=== PATIENT | male | born 1980 | race African-American/Black ===

== ENCOUNTER 2017-02-14 05:15 | Emergency (ER) | payer SELFPAY ==
[~2017-02-14] VITALS: Ht 172.7 cm; Wt 81.6 kg
[2017-02-14 05:23] VITALS: BP 135/69
--- NOTE | 2017-02-14 05:23 | PHYS DOC ---
Past Medical History Past Medical History: No Pertinent History Past Surgical History: No Surgical History Alcohol Use: None Drug Use: None Adult General Chief Complaint Chief Complaint: FACE PAIN HPI HPI Patient is a 36 year old male who presents with years of left jaw tightness, constant with intermittent fluctuations of intensity. He notes symptoms worse tonight without inciting event. He denies jaw pain, dental pain, trauma, sore throat, difficulty opening mouth or breathing or eating. Denies face swelling or ear pain. Denies headache. Review of Systems Review of Systems Constitutional: Denies fever or chills [] Eyes: Denies change in visual acuity, redness, or eye pain [] HENT: Denies nasal congestion or sore throat [] Respiratory: Denies cough or shortness of breath [] Cardiovascular: No additional information not addressed in HPI [] GI: Denies abdominal pain, nausea, vomiting, bloody stools or diarrhea [] : Denies dysuria or hematuria [] Musculoskeletal: Denies back pain or joint pain [] Integument: Denies rash or skin lesions [] Neurologic: Denies headache, focal weakness or sensory changes [] Endocrine: Denies polyuria or polydipsia [] Physical Exam Physical Exam Constitutional: Well developed, well nourished, no acute distress, non-toxic appearance. [] HENT: Normocephalic, atraumatic, bilateral external ears normal, oropharynx moist, no oral exudates, nose normal. No trismus [] Eyes: PERRLA, EOMI, conjunctiva normal, no discharge. [] Neck: Normal range of motion, supple, no stridor. [] Cardiovascular:Heart rate regular rhythm [] Lungs & Thorax: Bilateral breath sounds clear to auscultation [] Abdomen: Bowel sounds normal, soft, no tenderness. [] Skin: Warm, dry, no erythema, no rash. [] Back: Normal ROM. [] Extremities: No tenderness, ROM intact. [] Neurologic: Alert and oriented X 3, normal motor function, normal sensory function, no focal deficits noted. [] Psychologic: Affect normal, judgement normal, mood normal. [] Course & Med Decision Making Course & Med Decision Making Pertinent Labs and Imaging studies reviewed. (See chart for details) Discussed symptomatic care for possible TMJ. Encouraged outpatient follow up. Return precautions given. He understands and agrees with plan. Dragon Disclaimer Dragon Disclaimer This electronic medical record was generated, in whole or in part, using a voice recognition dictation system. Departure Departure Impression: Primary Impression: Chronic jaw pain Disposition: 01 HOME, SELF-CARE Condition: STABLE Patient Instructions: Jaw, Range of Motion Exercises, [id number] Additional Instructions: Take naproxen as needed for jaw pain. Follow-up with your primary care doctor and your dentist. Return for any concerns. Scripts Naproxen 375 Mg Tablet1 Tab PO BID PRN PAIN #30 TAB Prov:Pauline STAPLES MD 02/14/17 Pauline STAPLES MD Feb 14, 2017 05:23
[2017-02-14] MEDS ORDERED: NAPR375T3 PO (05:27)
== END 2017-02-14 05:39 | disposition home or self-care (01) ==
LOC: ER 05:15
DX: G89.29 Other chronic pain (principal); R68.84 Jaw pain
CPT/HCPCS: 99283

== ENCOUNTER 2017-07-14 18:43 | Emergency (ER) | payer OTHER ==
[~2017-07-14] VITALS: Ht 172.7 cm; Wt 77.1 kg
[~2017-07-14 18:43] MED LIST: NAPR-695 PO
[2017-07-14 18:50] VITALS: BP 124/65
[2017-07-14] MEDS ORDERED: NAPROXEN 500 MG TABLET PO STA (19:11)
[2017-07-14] MEDS ORDERED: NAPR500T8 PO (19:17)
[2017-07-14] MEDS ORDERED: CYCL10TA2 PO (19:17)
--- NOTE | 2017-07-14 19:17 | PHYS DOC ---
Past Medical History Past Medical History: No Pertinent History Past Surgical History: No Surgical History Alcohol Use: None Drug Use: None Adult General Chief Complaint Chief Complaint: DENTAL PROBLEM HPI HPI Patient is a 37 year old male who presents with left chronic jaw pain. Patient denies any trauma. Denies any trismus. He states he has a clicking sound in the jaw that is chronic as well. Review of Systems Review of Systems Constitutional: Denies fever or chills [] Eyes: Denies change in visual acuity, redness, or eye pain [] HENT: left chronic jaw pain Musculoskeletal: Denies back pain or joint pain [] Integument: Denies rash or skin lesions [] Neurologic: Denies headache, focal weakness or sensory changes [] Allergies Allergies Allergies Coded Allergies Type Severity Reaction Last Updated Verified No Known Drug Allergies 02/14/17 No Physical Exam Physical Exam Constitutional: Well developed, well nourished, no acute distress, non-toxic appearance. [] HENT: Normocephalic, atraumatic, bilateral external ears normal, oropharynx moist, no oral exudates, nose normal. [] full range of motion to the jaw on exam, crepitus noted on ROM. Skin: Warm, dry, no erythema, no rash. [] Back: No tenderness, no CVA tenderness. [] Extremities: No tenderness, no cyanosis, no clubbing, ROM intact, no edema. [] Neurologic: Alert and oriented X 3, normal motor function, normal sensory function, no focal deficits noted. [] Psychologic: Affect normal, judgement normal, mood normal. [] Current Patient Data Vital Signs Vital Signs Date Time Temp Pulse Resp B/P (MAP) Pulse Ox O2 Delivery O2 Flow Rate FiO2 07/14/17 18:50 98.5 68 16 98 Room Air 98.5 EKG EKG [] Radiology/Procedures Radiology/Procedures [] Course & Med Decision Making Course & Med Decision Making Pertinent Labs and Imaging studies reviewed. (See chart for details) Patient is in the ED with chronic left jaw pain. Discharged with naproxen and Flexeril. Follow-up with PCP in 1-2 weeks. Dragon Disclaimer Dragon Disclaimer This electronic medical record was generated, in whole or in part, using a voice recognition dictation system. Departure Departure Impression: Primary Impression: Chronic jaw pain Additional Impression: TMJ (temporomandibular joint syndrome) Disposition: HOME, SELF-CARE Condition: STABLE Referrals: NO PCP (PCP) follow up with your doctor in one week Patient Instructions: Temporomandibular Joint Pain-Brief Additional Instructions: You were seen for chronic left jaw pain. Follow-up with your primary care doctor or a doctor from the list provided in the next [address] operate machinery on the cyclobenzaprine. Scripts Cyclobenzaprine Hcl (CYCLOBENZAPRINE HCL) 10 Mg Tablet 1 TAB PO TID, #30 TAB Prov: YOGESH DIAZ APRN 07/14/17 Naproxen (NAPROXEN) 500 Mg Tablet. 1 TAB PO BID, #60 TAB 1 Refill Prov: YOGESH DIAZ APRN 07/14/17 Problem Qualifiers YOGESH DIAZ APRN Jul 14, 2017 19:17
== END 2017-07-14 19:42 | disposition home or self-care (01) ==
LOC: ER 18:43
DX: M26.602 Left temporomandibular joint disorder, unspecified (principal); G89.29 Other chronic pain
CPT/HCPCS: 99283

== ENCOUNTER 2017-09-12 08:08 | Emergency (ER) | payer OTHER ==
[~2017-09-12] VITALS: Ht 170.2 cm; Wt 81.6 kg
[2017-09-12 08:08] VITALS: BP 121/77
[~2017-09-12 08:08] MED LIST changes: +CYCL10TA2 PO; +NAPR500T8 PO
[2017-09-12] MEDS ORDERED: DIPHTH,PERTUSS(ACELL),TET TOX 0.5 ML DISP.SYRIN. VAX IM ONE (08:45)
--- NOTE | 2017-09-12 08:48 | RAD ---
Examination: 2 views of the right hand History: History of laceration to the posterior thumb Comparison: None available Findings: The alignment of the metacarpophalangeal joints, interphalangeal joints grossly unremarkable. Probable soft tissue injury identified in the base of the thumb region. Impression: 1. No acute osseous findings. 2. Probable soft tissue injury at the base of the thumb.
--- NOTE | 2017-09-12 09:54 | ED.ADGEN ---
Past Medical History Past Medical History: Schizophrenia Past Surgical History: No Surgical History Alcohol Use: None Drug Use: None Adult General Chief Complaint Chief Complaint: LACERATION/AVULSION HPI HPI Patient is a 37 year old man, history of schizophrenia, developmental delay, who presents to the emergency department due to complaint of pain in his right hand after sustaining a laceration last night. Patient states that he "stuck my hand into my pocket and cut it on a razor blade in my pocket". Patient states that he had a small razor that he does used to shape his sideburns, he states that he forgot it was in his pocket, and he sustained a small laceration which have some bleeding. He states that he was unable to come in earlier, so he came in this morning. He states this occurred before midnight last night. He denies any other injuries or complaints. Patient is uncertain when he last received a tetanus booster. Review of Systems Review of Systems Constitutional: Denies fever or chills. [] Eyes: Denies change in visual acuity. [] HENT: Denies nasal congestion or sore throat. [] Respiratory: Denies cough or shortness of breath. [] Cardiovascular: Denies chest pain or edema. [] GI: Denies abdominal pain, nausea, vomiting, bloody stools or diarrhea. [] : Denies dysuria. [] Musculoskeletal: Denies back pain or joint pain. [] Integument: Denies rash. [] Neurologic: Denies headache, focal weakness or sensory changes. [] Endocrine: Denies polyuria or polydipsia. [] Lymphatic: Denies swollen glands. [] Psychiatric: Denies depression or anxiety. [] Current Medications Current Medications Current Medications Medications (Trade) Dose Ordered Sig/Hayde Start Time Stop Time Status Last Admin Dose Admin Diphtheria/ Tetanus/Acell Pertussis (Boostrix) 0.5 ml ONCE ONCE 09/12/17 08:45 09/12/17 08:46 DC 09/12/17 08:46 0.5 ML Allergies Allergies Allergies Coded Allergies Type Severity Reaction Last Updated Verified No Known Drug Allergies 02/14/17 No Physical Exam Physical Exam Constitutional: Well developed, well nourished, no acute distress, non-toxic appearance. [] HENT: Normocephalic, atraumatic, bilateral external ears normal, oropharynx moist, no oral exudates, nose normal. [] Eyes: PERRLA, EOMI, conjunctiva normal, no discharge. [] Neck: Normal range of motion, no tenderness, supple, no stridor. [] Cardiovascular:Heart rate regular rhythm, no murmur , S1, S2, rubs or gallops.[] Lungs & Thorax: Bilateral breath sounds clear to auscultation, no wheezing, rhonchi, rales. No chest wall crepitus or tenderness. [] Skin: Warm, dry, no erythema, no rash. [] Extremities: Patient with a linear superficial laceration noted perpendicular to the base of the thumb over the right thenar eminence, one and half centimeters in length, involves only the skin, with no gaping or deeper involvement. No evidence of foreign body. Mild soft tissue swelling noted in the area, but no evidence of infection or induration, patient is actively squeezing and picking at the area during my examination. No active bleeding. Dried blood is noted around the area. The no cyanosis, no clubbing, ROM intact, no edema. [] Neurologic: Alert and oriented X 3, normal motor function, normal sensory function, no focal deficits noted. [] Psychologic: Strange affect, judgement normal, mood normal. [] Current Patient Data Vital Signs Vital Signs Date Time Temp Pulse Resp B/P (MAP) Pulse Ox O2 Delivery O2 Flow Rate FiO2 09/12/17 08:08 98.2 82 18 100 Room Air 98.2 EKG EKG Not indicated.[] Radiology/Procedures Radiology/Procedures [][facility] [address] [place] [address] IMAGING REPORT Signed PATIENT: RUBIN HADLEY ACCOUNT: [id number] : 1980 LOCATION: ER AGE: 37 SEX: M EXAM STATUS: REG ER ORD. PHYSICIAN: NONA HORVATH DO REASON: Laceration PROCEDURE: HAND RIGHT 2V Examination: 2 views of the right hand History: History of laceration to the posterior thumb Comparison: None available Findings: The alignment of the metacarpophalangeal joints, interphalangeal joints grossly unremarkable. Probable soft tissue injury identified in the base of the thumb region. Impression: 1. No acute osseous findings. 2. Probable soft tissue injury at the base of the thumb. DICTATED and SIGNED BY: MAURI EUCEDA MD DATE: 09/12/17840 CC: NONA HORVATH DO; NO PCP ~ Course & Med Decision Making Course & Med Decision Making Pertinent Labs and Imaging studies reviewed. (See chart for details) Patient was rather strange affect, consistent with his baseline report, although he is cooperative with questioning. Patient is constantly moving and picking at the wound area even during the examination when I am repeatedly telling him to not pick at it due to concerns for inducing possible infection. X -ray was obtained to rule out any occult underlying injury, although there is no evidence of infection or other concerning findings on examination this time, as stated is a superficial laceration involving only the upper dermis, with no evidence of deeper and involvement. X-ray was unremarkable aside from superficial laceration as stated being noted. I did discuss with patient risk versus benefit of delayed closure, because of the patient's continued squeezing and picking at the wound, I believe that delayed closure with glue would be beneficial for the patient to prevent development of infection at this time. Patient is agreeable this plan. Area was copiously cleaned in the emergency department, and a layer of skin glue was applied with good effect. Patient was instructed to keep the wound covered for the first 24 hours, and avoid immersion for 48 hours, he was also given very clear and detailed instructions primary and return if any signs of infection do develop. His tetanus booster was updated in the ED. As stated, there is no evidence of infection at this time , no indication for antibiotics or other interventions at this time, patient was discharged home in stable condition with plan and precautions as above. Dragon Disclaimer Dragon Disclaimer This electronic medical record was generated, in whole or in part, using a voice recognition dictation system. Departure Impression: Primary Impression: Hand laceration Disposition: HOME, SELF-CARE Condition: IMPROVED NONA HORVATH DO Sep 12, 2017 09:54
== END 2017-09-12 09:22 | disposition home or self-care (01) ==
LOC: ER 08:08
DX: S61.411A Laceration without foreign body of right hand, initial encounter (principal); F20.9 Schizophrenia, unspecified; Y28.8XXA Contact with other sharp object, undetermined intent, initial encounter; Y93.89 Activity, other specified; Y99.8 Other external cause status; Y92.89 Other specified places as the place of occurrence of the external cause
CPT/HCPCS: 73120; 90471; 90715; 99284-25

== ENCOUNTER 2018-01-31 21:35 | Emergency (ER) | payer OTHER ==
[2018-01-31] MEDS: LIDO:MAALOX:DONNATAL 1:1:1 15 ML SINGLE DOSE SWSW (22:30)
== END 2018-01-31 23:33 | disposition home or self-care (01) ==
LOC: ER 21:35
DX: K21.9 Gastro-esophageal reflux disease without esophagitis (principal); F20.0 Paranoid schizophrenia
CPT/HCPCS: 99282

== ENCOUNTER 2018-04-06 16:47 | Emergency (ER) | payer OTHER | END 2018-04-06 17:41 | disposition home or self-care (01) | LOC: ER 16:47 | DX: K64.9 Unspecified hemorrhoids (principal); F20.9 Schizophrenia, unspecified | CPT/HCPCS: 99283 ==

== ENCOUNTER 2018-05-21 12:33 | Emergency (ER) | payer OTHER ==
[2018-05-21] MEDS: IBUPROFEN 800 MG TABLET. PO (13:28)
== END 2018-05-21 13:48 | disposition home or self-care (01) ==
LOC: ER 12:33
DX: G89.29 Other chronic pain (principal); R68.84 Jaw pain; F20.9 Schizophrenia, unspecified
CPT/HCPCS: 99282; 99283

== ENCOUNTER 2018-07-01 02:00 | Emergency (ER) | payer OTHER ==
[~2018-07-01] VITALS: Ht 175.3 cm; Wt 77.1 kg
[2018-07-01 02:00] VITALS: BP 152/77
[~2018-07-01 02:00] MED LIST changes: +HYDR28.311 RC; +RANI150T21 PO
[2018-07-01] MEDS: LIDO:MAALOX 1:1 20 ML SINGLE DOSE. SWSW ONE (02:24)
[2018-07-01] MEDS: LORazepam 1 MG TABLET PO ONE (02:25)
[2018-07-01 02:41] LABS: BASO % 0 % (0-3); EOS # 0.1 x10^3/uL (0.0-0.7); EOS % 1 % (0-3); HEMATOCRIT 41.6 % (39.0-53.0); HEMOGLOBIN 14.5 g/dL (13.0-17.5); LYMPH % 28 % (24-48); MEAN CORPUSCULAR HEMOGLOBIN 32 pg (25-35); MEAN CORPUSCULAR HGB CONC 35 g/dL (31-37); MEAN CORPUSCULAR VOLUME 91 fL (79-100); MONO # 0.8 x10^3/uL (0.0-1.1); MONO % 11 % (0-9); NEUT # 4.5 x10^3uL (1.8-7.7); NEUT % 60 % (31-73); PLATELET COUNT 214 x10^3/uL (140-400); RED BLOOD COUNT 4.59 x10^6/uL (4.30-5.70); RED CELL DISTRIBUTION WIDTH 12.8 % (11.5-14.5); WHITE BLOOD COUNT 7.4 x10^3/uL (4.0-11.0)
[2018-07-01 03:00] LABS: CREATININE 1.1 mg/dL (0.7-1.3); GFR 91.6; POTASSIUM 3.7 mmol/L (3.5-5.1)
[2018-07-01 03:05] LABS: ALBUMIN 3.8 g/dL (3.4-5.0); ALBUMIN/GLOBULIN RATIO 1.3 (1.0-1.7); TOTAL BILIRUBIN 0.3 mg/dL (0.2-1.0); TOTAL PROTEIN 6.7 g/dL (6.4-8.2)
--- NOTE | 2018-07-01 03:22 | PHYS DOC ---
Past Medical History Past Medical History: Schizophrenia Past Surgical History: Other Additional Past Surgical Histo: EGD W/REMOVAL OF FOREIGN BODY Alcohol Use: None Drug Use: None Adult General Chief Complaint Chief Complaint: ABDOMINAL PAIN [facility] HPI Patient is a 38 year old male brought in by ambulance with a chief complaint of he thinks there are worms crawling inside his abdomen he is noticed this for the last 15 years. He said that sometimes they get worse to the point where he feels anxious and he actually tries to take his Abilify for schizophrenia to help but sometimes it just gets a little out of hand. Today he would like something for his anxiety and for the symptoms. Something to calm his abdomen down he tells me. He denies suicidality he denies homicidality he says that there are no command hallucinations. He just wants something to help calm his stomach down and to "kill the worms" Review of Systems Review of Systems Constitutional: Denies fever or chills [] Eyes: Denies change in visual acuity, redness, or eye pain [] HENT: Denies nasal congestion or sore throat [] Respiratory: Denies cough or shortness of breath [] Cardiovascular: No additional information not addressed in HPI [] All other systems were reviewed and found to be within normal limits, except as documented in this note. Current Medications Current Medications Current Medications Medications (Trade) Dose Ordered Sig/Hayde Start Time Stop Time Status Last Admin Dose Admin Lorazepam (Ativan) 2 mg 1X ONCE 07/01/18 02:30 07/01/18 02:31 DC 07/01/18 02:25 2 MG Multi-Ingredient Mouthwash/Gargle (Gi Cocktail) 20 ml 1X ONCE 07/01/18 02:30 07/01/18 02:31 DC 07/01/18 02:24 20 ML Olanzapine (ZyPREXA ZYDIS) 10 mg 1X ONCE 07/01/18 02:30 07/01/18 02:31 DC 07/01/18 02:25 10 MG Allergies Allergies Allergies Coded Allergies Type Severity Reaction Last Updated Verified No Known Drug Allergies 02/14/17 No Physical Exam Physical Exam Constitutional: Well developed, well nourished, no acute distress, non-toxic appearance. [] HENT: Normocephalic, atraumatic, bilateral external ears normal, oropharynx moist, no oral exudates, nose normal. [] Eyes: PERRLA, EOMI, conjunctiva normal, no discharge. [] Normal respiratory effort no increased work of breathing Abdomen: Bowel sounds normal, soft, no tenderness, no masses, no pulsatile masses. [] Skin: Warm, dry, no erythema, no rash. [] Back: No tenderness, no CVA tenderness. [] Extremities: No tenderness, no cyanosis, no clubbing, ROM intact, no edema. [] Neurologic: Alert and oriented X 3, normal motor function, normal sensory function, no focal deficits noted. [] Psychologic: Patient does have an odd affect does appear to have some mild paranoia but overall is calm and cooperative Current Patient Data Vital Signs Vital Signs Date Time Temp Pulse Resp B/P (MAP) Pulse Ox O2 Delivery O2 Flow Rate FiO2 07/01/18 02:00 98.6 88 16 152/77 (102) 96 Room Air 98.6 Lab Values Laboratory Tests Test 07/01/18 02:30 White Blood Count 7.4 x10^3/uL (4.0-11.0) Red Blood Count 4.59 x10^6/uL (4.30-5.70) Hemoglobin 14.5 g/dL (13.0-17.5) Hematocrit 41.6 % (39.0-53.0) Mean Corpuscular Volume 91 fL (79-100) Mean Corpuscular Hemoglobin 32 pg (25-35) Mean Corpuscular Hemoglobin Concent 35 g/dL (31-37) Red Cell Distribution Width 12.8 % (11.5-14.5) Platelet Count 214 x10^3/uL (140-400) Neutrophils (%) (Auto) 60 % (31-73) Lymphocytes (%) (Auto) 28 % (24-48) Monocytes (%) (Auto) 11 % (0-9) H Eosinophils (%) (Auto) 1 % (0-3) Basophils (%) (Auto) 0 % (0-3) Neutrophils # (Auto) 4.5 x10^3uL (1.8-7.7) Lymphocytes # (Auto) 2.0 x10^3/uL (1.0-4.8) Monocytes # (Auto) 0.8 x10^3/uL (0.0-1.1) Eosinophils # (Auto) 0.1 x10^3/uL (0.0-0.7) Basophils # (Auto) 0.0 x10^3/uL (0.0-0.2) Sodium Level 140 mmol/L (136-145) Potassium Level 3.7 mmol/L (3.5-5.1) Chloride Level 105 mmol/L (98-107) Carbon Dioxide Level 28 mmol/L (21-32) Anion Gap 7 (6-14) Blood Urea Nitrogen 22 mg/dL (8-26) Creatinine 1.1 mg/dL (0.7-1.3) Estimated GFR (Cockcroft-Gault) 91.6 BUN/Creatinine Ratio 20 (6-20) Glucose Level 104 mg/dL (70-99) H Calcium Level 9.0 mg/dL (8.5-10.1) Total Bilirubin 0.3 mg/dL (0.2-1.0) Aspartate Amino Transferase (AST) 36 U/L (15-37) Alanine Aminotransferase (ALT) 44 U/L (16-63) Alkaline Phosphatase 87 U/L (46-116) Total Protein 6.7 g/dL (6.4-8.2) Albumin 3.8 g/dL (3.4-5.0) Albumin/Globulin Ratio 1.3 (1.0-1.7) Lipase 142 U/L (73-393) Laboratory Tests 07/01/18 02:30 Laboratory Tests 07/01/18 02:30 EKG EKG [] Radiology/Procedures Radiology/Procedures [] Course & Med Decision Making Course & Med Decision Making Pertinent Labs and Imaging studies reviewed. (See chart for details) 38-year-old male with history of schizophrenia who is presenting with sensation of "worms in his abdomen". Labwork is essentially unremarkable the patient was given anxiolytic therapy in the emergency room as above next he felt much better he is very eager to be discharged home. He does have an address in an apartment and he tells me that he is not suicidal and he thinks he can take his Abilify regularly Dragon Disclaimer Dragon Disclaimer This electronic medical record was generated, in whole or in part, using a voice recognition dictation system. Departure Departure Impression: Primary Impression: Abdominal pain Disposition: HOME, SELF-CARE Condition: STABLE DIAMANTE ASHBY MD Jul 01, 2018 03:22
== END 2018-07-01 03:16 | disposition home or self-care (01) ==
LOC: ER 02:00
DX: R10.9 Unspecified abdominal pain (principal); F22 Delusional disorders; F20.9 Schizophrenia, unspecified; F41.9 Anxiety disorder, unspecified
CPT/HCPCS: 36415; 80053; 83690; 85025; 99284

== ENCOUNTER 2018-10-07 01:45 | Emergency (ER) | payer OTHER ==
[~2018-10-07] VITALS: Ht 172.7 cm; Wt 77.1 kg
[2018-10-07 01:50] VITALS: BP 154/100
[2018-10-07] MEDS ORDERED: SIME125C PO (02:28)
[2018-10-07] MEDS ORDERED: PRED20TA PO (02:28)
[2018-10-07] MEDS ORDERED: CHLO15MO2 PO (02:28)
[2018-10-07] MEDS ORDERED: HYDR25SU18 RC (02:28)
--- NOTE | 2018-10-07 02:28 | PHYS DOC ---
Past Medical History Past Medical History: Schizophrenia Past Surgical History: Other Additional Past Surgical Histo: EGD W/REMOVAL OF FOREIGN BODY Smoking: Cigarettes Additional Information: HALF PACK A DAY Alcohol Use: None Drug Use: Marijuana Adult General Chief Complaint Chief Complaint: DENTAL PROBLEM HPI HPI 38-year-old male presents with report of left-sided jaw discomfort. Patient reports his been ongoing for several years but became worse recently. Reports he feels like his jaw is "tight". Denies any toothache. Denies any swelling. Denies known trauma. Patient also reports some abdominal bloating. Patient also concerned of history of hemorrhoids. Denies any fever or chills. Mother had reported to triage desk concern for patient with agitation due to known schizophrenia. Patient denies any suicidal or homicidal ideation. Review of Systems Review of Systems Constitutional: Denies fever or chills [] Eyes: Denies change in visual acuity, redness, or eye pain [] HENT: Denies nasal congestion or sore throat [] Respiratory: Denies cough or shortness of breath [] Cardiovascular: Denies chest pain or palpitations GI: Reports abdominal pain discomfort; denies nausea, vomiting, or diarrhea [] : Denies dysuria or hematuria [] Musculoskeletal: Denies back pain or joint pain [] Integument: Denies rash or skin lesions [] Neurologic: Denies headache, focal weakness or sensory changes [] Complete systems were reviewed and found to be within normal limits, except as documented in this note. Current Medications Current Medications Current Medications Medications (Trade) Dose Ordered Sig/Hayde Start Time Stop Time Status Last Admin Dose Admin Dexamethasone (Decadron) 10 mg 1X ONCE 10/07/18 02:45 10/07/18 02:46 DC 10/07/18 02:46 10 MG Allergies Allergies Allergies Coded Allergies Type Severity Reaction Last Updated Verified No Known Drug Allergies 02/14/17 No Physical Exam Physical Exam Constitutional: Well developed, well nourished, no acute distress, non-toxic appearance. [] HENT: Normocephalic, atraumatic, bilateral TMs normal, oropharynx moist, no oral exudates, nose normal, prior dental extractions, no dental abscess, left TMJ tender with movement and palpation Eyes: Conjunctiva normal, no discharge. [] Neck: Normal range of motion, no tenderness, supple, no stridor. [] Cardiovascular:Heart rate regular rhythm, no murmur [] Lungs & Thorax: Bilateral breath sounds clear to auscultation [] Abdomen: Soft, no tenderness, rectum with small nonbleeding or thrombosed external hemorrhoid Skin: Warm, dry, no erythema, no rash. [] Neurologic: Alert and oriented X 3, no focal deficits noted. [] Psychologic: Hyperverbal, denies suicidal or homicidal ideation Current Patient Data Vital Signs Vital Signs Date Time Temp Pulse Resp B/P (MAP) Pulse Ox O2 Delivery O2 Flow Rate FiO2 10/07/18 01:50 97.8 78 18 154/100 (118) 97 Room Air 97.8 EKG EKG [] Radiology/Procedures Radiology/Procedures [] Course & Med Decision Making Course & Med Decision Making Pertinent Labs and Imaging studies reviewed. (See chart for details) Patient presents with left-sided jaw pain which is worse with movement. No focal abscess or dental carry appreciated. Possible TMJ. Symptomatic treatment provided with oral steroid. Patient also complaining of abdominal bloating and concern for external hemorrhoid. Nonbleeding nonthrombosed external hemorrhoid appreciated. Abdomen non-peritoneal. Prescriptions for symptomatic treatment provided. Patient stable for discharge with outpatient follow-up with PCP. Discussed findings and plan with patient. who acknowledges understanding and agreement. Dragon Disclaimer Dragon Disclaimer This electronic medical record was generated, in whole or in part, using a voice recognition dictation system. Departure Departure Impression: Primary Impression: Chronic jaw pain Additional Impressions: Abdominal bloating with cramps Hemorrhoids Disposition: HOME, SELF-CARE Condition: STABLE Referrals: NO PCP (PCP) SAI ALTAMIRANO MD Patient Instructions: Bloating, Hemorrhoids, [id number], Temporomandibular Joint Pain-Brief Scripts Hydrocortisone Acetate (ANUSOL-HC) 25 Mg Supp.rect 1 SUPP RC BID, #14 SUPP Prov: EVA MONSIVAIS DO 10/07/18 Prednisone (PREDNISONE) 20 Mg Tablet 2 TAB PO DAILY, #8 TAB Start tomorrow 10/08/18 Prov: EVA MONSIVAIS DO 10/07/18 Chlorhexidine Gluconate (PERIDEX) 15 Ml Mouthwash 15 ML PO BID, #946 ML Prov: EVA MONSIVAIS DO 10/07/18 Simethicone (GAS-X) 125 Mg Capsule 125 MG PO Q8HRS PRN for GAS / BLOATING, #20 CAP Prov: EVA MONSIVAIS DO 10/07/18 Problem Qualifiers Additional Impressions: Hemorrhoids Hemorrhoid type: unspecified Qualified Codes: K64.9 - Unspecified hemorrhoids EVA MONSIVAIS DO Oct 07, 2018 02:28
[2018-10-07] MEDS ORDERED: DEXAMETHASONE 4 MG TABLET PO ONE (02:45)
== END 2018-10-07 02:50 | disposition home or self-care (01) ==
LOC: ER 01:45
DX: G89.29 Other chronic pain (principal); R68.84 Jaw pain; R14.0 Abdominal distension (gaseous); K64.9 Unspecified hemorrhoids; F20.9 Schizophrenia, unspecified; F17.210 Nicotine dependence, cigarettes, uncomplicated
CPT/HCPCS: 99283; J8540

== ENCOUNTER 2018-10-12 23:12 | Emergency (ER) | payer OTHER ==
[~2018-10-12] VITALS: Ht 170.2 cm; Wt 86.2 kg
[~2018-10-12 23:12] MED LIST changes: +CHLO15MO2 PO; +HYDR25SU18 RC; +PRED20TA PO; +SIME125C PO
--- NOTE | 2018-10-12 23:33 | PHYS DOC ---
Past Medical History Past Medical History: Schizophrenia Past Surgical History: Other Additional Past Surgical Histo: EGD W/REMOVAL OF FOREIGN BODY Alcohol Use: None Drug Use: Marijuana Adult General Chief Complaint Chief Complaint: FACE PAIN [facility] Patient is a 38 year old male who presents with pain over the right side of his face. Patient states he had symptoms that started earlier today. The pain is located over the left TMJ joint. He did not have any trauma. He does not have any bad teeth. He has not had a fever or chills. He has never had symptoms similar to this in the past. Pain is described to be sharp in nature and sometimes he feels like there is a muscle spasm over the temporal area. No recent travel. He does not have any additional complaints today. Review of Systems Review of Systems Constitutional: Denies fever Eyes: Denies change in visual acuity HENT: Denies nasal congestion Respiratory: Denies cough or shortness of breath Cardiovascular: No additional information not addressed in HPI GI: Denies abdominal pain, nausea : Denies dysuria or hematuria Musculoskeletal: Denies back pain or joint pain Integument: Denies rash or skin lesions Neurologic: Denies headache, focal weakness or sensory changes All other systems were reviewed and found to be within normal limits, except as documented in this note. Allergies Allergies Allergies Coded Allergies Type Severity Reaction Last Updated Verified No Known Drug Allergies 02/14/17 No Physical Exam Physical Exam Constitutional: Well developed, well nourished, no acute distress, non-toxic appearance HENT: Normocephalic, atraumatic, bilateral external ears normal, oropharynx moist, no oral exudates, nose normal Eyes: PERRLA, EOMI, conjunctiva normal, no discharge Neck: Normal range of motion, no tenderness, supple, no stridor Cardiovascular:Heart rate regular rhythm, no murmur Lungs & Thorax: Bilateral breath sounds clear to auscultation Abdomen: Bowel sounds normal, soft, no tenderness, no masses, no pulsatile masses. Skin: Warm, dry, no erythema, no rash Back: No tenderness, no CVA tenderness Extremities: Normal exam Neurologic: Alert and oriented X 3 Psychologic: Affect normal EKG EKG [] Radiology/Procedures Radiology/Procedures [] Course & Med Decision Making Course & Med Decision Making Pertinent Labs and Imaging studies reviewed. (See chart for details) Patient is seen and examined in the ER for some sort of facial pain on the left. His physical exam is benign. He has no muscle spasm. He has free range of motion about the TMJ joint with no spasm and no crepitance. He is given an ibuprofen and Flexeril in the ER. Plan is for discharge home with the same medications. Patient is advised to follow-up with his primary care doctor or return to the ER for any new or worsening symptoms. Dragon Disclaimer Dragon Disclaimer This electronic medical record was generated, in whole or in part, using a voice recognition dictation system. Departure Departure Disposition: 01 HOME, SELF-CARE Condition: GOOD Referrals: NO PCP (PCP) GEOVANNA MUELLER DO Oct 12, 2018 23:32
[2018-10-12] MEDS ORDERED: IBUP-1060 PO (23:35)
[2018-10-12] MEDS ORDERED: CYCL5TAB PO (23:35)
[2018-10-12] MEDS ORDERED: IBUPROFEN 400 MG TABLET. PO ONE (23:45)
[2018-10-12] MEDS ORDERED: CYCLOBENZAPRINE 10 MG TABLET. PO ONE (23:45)
== END 2018-10-13 | disposition home or self-care (01) ==
LOC: ER 23:12
DX: M26.622 Arthralgia of left temporomandibular joint (principal); R51 Headache; F20.9 Schizophrenia, unspecified
CPT/HCPCS: 99283

== ENCOUNTER 2018-10-13 22:56 | Emergency (ER) | payer OTHER ==
[~2018-10-13] VITALS: Ht 177.8 cm; Wt 86.2 kg
[~2018-10-13 22:56] MED LIST changes: +CYCL5TAB PO; +IBUP-1060 PO
[2018-10-13 23:56] LABS: BASO % 1 % (0-3); EOS # 0.1 x10^3/uL (0.0-0.7); EOS % 1 % (0-3); HEMATOCRIT 45.8 % (39.0-53.0); LYMPH # 2.8 x10^3/uL (1.0-4.8); LYMPH % 34 % (24-48); MEAN CORPUSCULAR HEMOGLOBIN 32 pg (25-35); MEAN CORPUSCULAR HGB CONC 35 g/dL (31-37); MEAN CORPUSCULAR VOLUME 91 fL (79-100); MONO # 0.9 x10^3/uL (0.0-1.1); MONO % 10 % (0-9); NEUT # 4.6 x10^3uL (1.8-7.7); NEUT % 54 % (31-73); PLATELET COUNT 230 x10^3/uL (140-400); RED BLOOD COUNT 5.05 x10^6/uL (4.30-5.70); RED CELL DISTRIBUTION WIDTH 13.2 % (11.5-14.5); WHITE BLOOD COUNT 8.5 x10^3/uL (4.0-11.0)
[2018-10-14 00:01] VITALS: BP 153/82
[2018-10-14 00:06] LABS: CALCIUM 9.6 mg/dL (8.5-10.1); CREATININE 1.1 mg/dL (0.7-1.3); GFR 91.6
[2018-10-14 00:13] LABS: ALBUMIN 3.9 g/dL (3.4-5.0); ALBUMIN/GLOBULIN RATIO 1.1 (1.0-1.7); TOTAL BILIRUBIN 0.3 mg/dL (0.2-1.0); TOTAL PROTEIN 7.4 g/dL (6.4-8.2)
[2018-10-14 00:20] LABS: BILIRUBIN,URINE NEGATIVE (NEG); CLARITY,URINE CLEAR; COLOR,URINE YELLOW; NITRITE,URINE NEGATIVE (NEG); PROTEIN,URINE NEGATIVE (NEG-TRACE); UROBILINOGEN,URINE 0.2 mg/dL (0.2 mg/dL)
[2018-10-14 00:20] LABS: ACETAMIN < 2 mcg/ml (10-30); ETHANOL < 10 mg/dL (0-10); SALIC 3.1 mg/dL (2.8-20.0)
[2018-10-14 00:25] LABS: BARBITURATES NEG (NEG); BENZODIAZEPINES NEG (NEG); CANNABINOIDS POS (NEG); COCAINE NEG (NEG); METHADONE NEG (NEG); OPIATES NEG (NEG); PHENCYCLIDINE NEG (NEG)
[2018-10-14 00:26] LABS: AMPHETAMINE/METHAMPHETAMINE NEG (NEG)
[2018-10-14 00:32] LABS: BACTERIA,URINE 0 /HPF (0-FEW); RBC,URINE 0 /HPF (0-2); SQUAMOUS EPITHELIAL CELL,UR OCC /LPF; WBC,URINE 0 /HPF (0-4)
--- NOTE | 2018-10-14 00:48 | PHYS DOC ---
Past Medical History Past Medical History: No Pertinent History, Schizophrenia Past Surgical History: Other Additional Past Surgical Histo: EGD W/REMOVAL OF FOREIGN BODY Alcohol Use: None Drug Use: Marijuana Adult General Chief Complaint Chief Complaint: PSYCH EVALUATION HPI HPI Patient is a 38 year old male with known mental health history of schizophrenia who presents indicating that he has been hearing some voices and is concerned that his mother might be trying to harm him. Patient denies any suicidal or homicidal ideations. He denies any chest pain or shortness of breath. Patient states the symptoms have been present for as long as he can remember. He does admit to having smoked some marijuana earlier today. Review of Systems Review of Systems Constitutional: Denies fever or chills [] Respiratory: Denies cough or shortness of breath [] Cardiovascular: No additional information not addressed in HPI [] GI: Denies abdominal pain, nausea, vomiting, bloody stools or diarrhea [] Integument: Denies rash or skin lesions [] Neurologic: Denies headache, focal weakness or sensory changes [] Psychiatric: Admits to moderate reported hallucinations. Denies visual hallucinations and has had no homicidal or suicidal ideations.[] All other systems were reviewed and found to be within normal limits, except as documented in this note. Allergies Allergies Allergies Coded Allergies Type Severity Reaction Last Updated Verified No Known Drug Allergies 02/14/17 No Physical Exam Physical Exam Constitutional: Well developed, well nourished, no acute distress, non-toxic appearance. [] HENT: Normocephalic, atraumatic, bilateral external ears normal, oropharynx moist, no oral exudates, nose normal. [] Eyes: PERRLA, EOMI, conjunctiva normal, no discharge. [] Neck: Normal range of motion, no tenderness, supple, no stridor. [] Cardiovascular: Regular rate and rhythm[] Lungs & Thorax: Bilateral breath sounds clear to auscultation [] Abdomen: Bowel sounds normal, soft, no tenderness. [] Skin: Warm, dry, no erythema, no rash. [] Extremities: No tenderness, no cyanosis, no clubbing, ROM intact, no edema. [] Neurologic: Awake and alert, normal motor function, normal sensory function, no focal deficits noted. [] Current Patient Data Lab Values Laboratory Tests Test 10/13/18 23:45 10/14/18 00:05 White Blood Count 8.5 x10^3/uL (4.0-11.0) Red Blood Count 5.05 x10^6/uL (4.30-5.70) Hemoglobin 16.0 g/dL (13.0-17.5) Hematocrit 45.8 % (39.0-53.0) Mean Corpuscular Volume 91 fL (79-100) Mean Corpuscular Hemoglobin 32 pg (25-35) Mean Corpuscular Hemoglobin Concent 35 g/dL (31-37) Red Cell Distribution Width 13.2 % (11.5-14.5) Platelet Count 230 x10^3/uL (140-400) Neutrophils (%) (Auto) 54 % (31-73) Lymphocytes (%) (Auto) 34 % (24-48) Monocytes (%) (Auto) 10 % (0-9) H Eosinophils (%) (Auto) 1 % (0-3) Basophils (%) (Auto) 1 % (0-3) Neutrophils # (Auto) 4.6 x10^3uL (1.8-7.7) Lymphocytes # (Auto) 2.8 x10^3/uL (1.0-4.8) Monocytes # (Auto) 0.9 x10^3/uL (0.0-1.1) Eosinophils # (Auto) 0.1 x10^3/uL (0.0-0.7) Basophils # (Auto) 0.0 x10^3/uL (0.0-0.2) Sodium Level 138 mmol/L (136-145) Potassium Level 4.0 mmol/L (3.5-5.1) Chloride Level 101 mmol/L (98-107) Carbon Dioxide Level 28 mmol/L (21-32) Anion Gap 9 (6-14) Blood Urea Nitrogen 31 mg/dL (8-26) H Creatinine 1.1 mg/dL (0.7-1.3) Estimated GFR (Cockcroft-Gault) 91.6 BUN/Creatinine Ratio 28 (6-20) H Glucose Level 95 mg/dL (70-99) Calcium Level 9.6 mg/dL (8.5-10.1) Total Bilirubin 0.3 mg/dL (0.2-1.0) Aspartate Amino Transferase (AST) 32 U/L (15-37) Alanine Aminotransferase (ALT) 59 U/L (16-63) Alkaline Phosphatase 94 U/L (46-116) Total Protein 7.4 g/dL (6.4-8.2) Albumin 3.9 g/dL (3.4-5.0) Albumin/Globulin Ratio 1.1 (1.0-1.7) Salicylates Level 3.1 mg/dL (2.8-20.0) Salicylate Last Dose Date Salicylate Last Dose Time Acetaminophen Level < 2 mcg/ml (10-30) L Acetaminophen Last Dose Date Acetaminophen Last Dose Time Ethyl Alcohol Level < 10 mg/dL (0-10) Urine Collection Type Unknown Urine Color Yellow Urine Clarity Clear Urine pH 6.0 Urine Specific [place] 1.025 Urine Protein Negative mg/dL (NEG-TRACE) Urine Glucose (UA) Negative mg/dL (NEG) Urine Ketones (Stick) Negative mg/dL (NEG) Urine Blood Negative (NEG) Urine Nitrite Negative (NEG) Urine Bilirubin Negative (NEG) Urine Urobilinogen Dipstick 0.2 mg/dL (0.2 mg/dL) Urine Leukocyte Esterase Negative (NEG) Urine RBC 0 /HPF (0-2) Urine WBC 0 /HPF (0-4) Urine Squamous Epithelial Cells Occ /LPF Urine Bacteria 0 /HPF (0-FEW) Urine Mucus Slight /LPF Urine Opiates Screen Neg (NEG) Urine Methadone Screen Neg (NEG) Urine Barbiturates Neg (NEG) Urine Phencyclidine Screen Neg (NEG) Urine Amphetamine/Methamphetamine Neg (NEG) Urine Benzodiazepines Screen Neg (NEG) Urine Cocaine Screen Neg (NEG) Urine Cannabinoids Screen Pos (NEG) Urine Ethyl Alcohol Neg (NEG) Laboratory Tests 10/13/18 23:45 Laboratory Tests 10/13/18 23:45 EKG EKG [] Radiology/Procedures Radiology/Procedures [] Course & Med Decision Making Course & Med Decision Making Pertinent Labs and Imaging studies reviewed. (See chart for details) A mental health workup has been completed on this patient and is remarkable only for marijuana on the drug screen. Patient has been seen and evaluated by mental health and they have deemed patient appropriate for outpatient follow up. Dragon Disclaimer Dragon Disclaimer This electronic medical record was generated, in whole or in part, using a voice recognition dictation system. Departure Departure Impression: Primary Impression: Auditory hallucinations Disposition: 01 HOME, SELF-CARE Condition: STABLE Referrals: NO PCP (PCP) Patient Instructions: Hallucinations and Delusions VIDAL BHARDWAJ Jr. DO Oct 14, 2018 00:47
== END 2018-10-14 01:10 | disposition home or self-care (01) ==
LOC: ER 22:56
DX: R44.0 Auditory hallucinations (principal); F20.9 Schizophrenia, unspecified; F12.10 Cannabis abuse, uncomplicated
CPT/HCPCS: 36415; 80053; 80307; 80329; 81001; 85025; 99284; G0480; G6039; 99283

== ENCOUNTER 2018-11-06 16:42 | Emergency (ER) | payer OTHER ==
[~2018-11-06] VITALS: Ht 172.7 cm; Wt 77.1 kg
[2018-11-06] MEDS ORDERED: LIDO:MAALOX 1:1 20 ML SINGLE DOSE. SWSW ONE (17:45)
[2018-11-06 17:53] LABS: BASO # 0.1 x10^3/uL (0.0-0.2); BASO % 1 % (0-3); EOS # 0.1 x10^3/uL (0.0-0.7); EOS % 1 % (0-3); HEMATOCRIT 42.7 % (39.0-53.0); HEMOGLOBIN 15.3 g/dL (13.0-17.5); LYMPH # 2.2 x10^3/uL (1.0-4.8); LYMPH % 27 % (24-48); MEAN CORPUSCULAR HEMOGLOBIN 32 pg (25-35); MEAN CORPUSCULAR HGB CONC 36 g/dL (31-37); MEAN CORPUSCULAR VOLUME 90 fL (79-100); MONO # 0.7 x10^3/uL (0.0-1.1); MONO % 8 % (0-9); NEUT # 5.2 x10^3uL (1.8-7.7); NEUT % 63 % (31-73); PLATELET COUNT 232 x10^3/uL (140-400); RED BLOOD COUNT 4.76 x10^6/uL (4.30-5.70); WHITE BLOOD COUNT 8.2 x10^3/uL (4.0-11.0)
--- NOTE | 2018-11-06 17:58 | PHYS DOC ---
Past Medical History Past Medical History: Depression, GERD, Schizophrenia, Other Additional Past Medical Histor: drug abuse Past Surgical History: Other Additional Past Surgical Histo: EGD W/REMOVAL OF FOREIGN BODY Additional Information: 0.5 PPD Alcohol Use: None Drug Use: Marijuana Adult General Chief Complaint Chief Complaint: ABDOMINAL PAIN HPI HPI Patient is a 38 year old male who presents with epigastric pain times years. He states that it began hurting him more today. Patient was in the ER waiting room pacing back and forth. Patient states also that he's been hearing "voices in the area point him to handle his own business, mind his own business and tell him to hurt himself at times." "Patient and states that they also tell him to hurt himself but he would never hurt himself and denies being suicidal or homicidal at this time." " Patient also states that he awoke with a man by his bedside saying I hope he didn't see that. And then when he asked what happened he he states he had elevation of somebody penetrable down his throat is so there might be a terrible in his stomach." Review of Systems Review of Systems Constitutional: Denies fever or chills [] Eyes: Denies change in visual acuity, redness, or eye pain [] HENT: Denies nasal congestion or sore throat [] Respiratory: Denies cough or shortness of breath [] Cardiovascular: No additional information not addressed in HPI [] GI: Epigastric abdominal pain, denies nausea, vomiting, bloody stools or diarrhea [] : Denies dysuria or hematuria [] Musculoskeletal: Denies back pain or joint pain [] Integument: Denies rash or skin lesions [] Neurologic: Denies headache, focal weakness or sensory changes [] All other systems were reviewed and found to be within normal limits, except as documented in this note. Current Medications Current Medications Current Medications Medications (Trade) Dose Ordered Sig/Hayde Start Time Stop Time Status Last Admin Dose Admin Multi-Ingredient Mouthwash/Gargle (Gi Cocktail) 20 ml 1X ONCE 11/06/18 17:45 11/06/18 17:46 DC 11/06/18 17:54 20 ML Allergies Allergies Allergies Coded Allergies Type Severity Reaction Last Updated Verified No Known Drug Allergies 02/14/17 No Physical Exam Physical Exam Constitutional: Well developed, well nourished, no acute distress, non-toxic appearance. [] HENT: Normocephalic, atraumatic, bilateral external ears normal, oropharynx moist, no oral exudates, nose normal. [] Eyes: PERRLA, EOMI, conjunctiva normal, no discharge. [] Neck: Normal range of motion, no tenderness, supple, no stridor. [] Cardiovascular:Heart rate regular rhythm, no murmur [] Lungs & Thorax: Bilateral breath sounds clear to auscultation [] Abdomen: Bowel sounds normal, soft, no tenderness, no masses, no pulsatile masses. [] Skin: Warm, dry, no erythema, no rash. [] Back: No tenderness, no CVA tenderness. [] Extremities: No tenderness, no cyanosis, no clubbing, ROM intact, no edema. [] Neurologic: Alert and oriented X 3, normal motor function, normal sensory function, no focal deficits noted. [] Psychologic: Hearing voices. Affect normal, judgement normal, mood normal. [] Current Patient Data Vital Signs Vital Signs Date Time Temp Pulse Resp B/P (MAP) Pulse Ox O2 Delivery O2 Flow Rate FiO2 11/06/18 18:23 90 134/72 (92) 98 Room Air 11/06/18 17:15 98.0 20 98.0 Lab Values Laboratory Tests Test 11/06/18 17:40 11/06/18 18:43 White Blood Count 8.2 x10^3/uL (4.0-11.0) Red Blood Count 4.76 x10^6/uL (4.30-5.70) Hemoglobin 15.3 g/dL (13.0-17.5) Hematocrit 42.7 % (39.0-53.0) Mean Corpuscular Volume 90 fL (79-100) Mean Corpuscular Hemoglobin 32 pg (25-35) Mean Corpuscular Hemoglobin Concent 36 g/dL (31-37) Red Cell Distribution Width 13.0 % (11.5-14.5) Platelet Count 232 x10^3/uL (140-400) Neutrophils (%) (Auto) 63 % (31-73) Lymphocytes (%) (Auto) 27 % (24-48) Monocytes (%) (Auto) 8 % (0-9) Eosinophils (%) (Auto) 1 % (0-3) Basophils (%) (Auto) 1 % (0-3) Neutrophils # (Auto) 5.2 x10^3uL (1.8-7.7) Lymphocytes # (Auto) 2.2 x10^3/uL (1.0-4.8) Monocytes # (Auto) 0.7 x10^3/uL (0.0-1.1) Eosinophils # (Auto) 0.1 x10^3/uL (0.0-0.7) Basophils # (Auto) 0.1 x10^3/uL (0.0-0.2) Sodium Level 143 mmol/L (136-145) Potassium Level 3.6 mmol/L (3.5-5.1) Chloride Level 105 mmol/L (98-107) Carbon Dioxide Level 27 mmol/L (21-32) Anion Gap 11 (6-14) Blood Urea Nitrogen 18 mg/dL (8-26) Creatinine 0.9 mg/dL (0.7-1.3) Estimated GFR (Cockcroft-Gault) 115.5 BUN/Creatinine Ratio 20 (6-20) Glucose Level 141 mg/dL (70-99) H Calcium Level 9.1 mg/dL (8.5-10.1) Total Bilirubin 0.2 mg/dL (0.2-1.0) Aspartate Amino Transferase (AST) 32 U/L (15-37) Alanine Aminotransferase (ALT) 51 U/L (16-63) Alkaline Phosphatase 100 U/L (46-116) Total Protein 7.1 g/dL (6.4-8.2) Albumin 3.6 g/dL (3.4-5.0) Albumin/Globulin Ratio 1.0 (1.0-1.7) Lipase 131 U/L (73-393) Urine Opiates Screen Neg (NEG) Urine Methadone Screen Neg (NEG) Urine Barbiturates Neg (NEG) Urine Phencyclidine Screen Neg (NEG) Urine Amphetamine/Methamphetamine Neg (NEG) Urine Benzodiazepines Screen Neg (NEG) Urine Cocaine Screen Neg (NEG) Urine Cannabinoids Screen Pos (NEG) Urine Ethyl Alcohol Neg (NEG) Laboratory Tests 11/06/18 17:40 Laboratory Tests 11/06/18 17:40 EKG EKG [] Radiology/Procedures Radiology/Procedures [] Impressions: Preliminary read by and show no obvious no acute findings Course & Med Decision Making Course & Med Decision Making Patient is a 38 year old male who presents with epigastric pain times years. He states that it began hurting him more today. Patient was in the ER waiting room pacing back and forth. Patient states also that he's been hearing "voices in the area point him to handle his own business, mind his own business and tell him to hurt himself at times." "Patient and states that they also tell him to hurt himself but he would never hurt himself and denies being suicidal or homicidal at this time." " Patient also states that he awoke with a man by his bedside saying I hope he didn't see that. And then when he asked what happened he he states he had elevation of somebody penetrable down his throat is so there might be a terrible in his stomach." Patient asked me during examination at that possibly be something secretly hiding in his stomach. Abdomen is soft and nontender. He states that sometimes he feels like there is something stuck in his epigastric area. He denies nausea or vomiting or diarrhea or fever. States he lives with his mother. Patient will laugh and at inappropriate times and at times it is hard to get information out of the patient. Patient states he does not see a psychologist and has bipolar depression in the past. Patient cannot tell me whether he has been taking his medications or not. Pat team has been called. Patient is asking if I could just give him a medicine to help coat his stomach. Vital signs within normal limits and he is afebrile. He is ambulatory with steady gait. I spoken with Coco from Pat team and she is on her way in to eval the patient. He is medically cleared. Preliminary x-rays show no acute findings. PAT team came and spoke with patient. Patient just left [facility] yesterday and received a IM injection of Abilify and has active resources through [facility] ([facility]) and has a scheduled appointment December 03. He has been cleared by PAT team to go home. Dragon Disclaimer Darri[place]on Disclaimer This electronic medical record was generated, in whole or in part, using a voice recognition dictation system. Departure Departure Impression: Primary Impression: GERD (gastroesophageal reflux disease) Disposition: HOME, SELF-CARE Condition: STABLE Referrals: NO PCP (PCP) Patient Instructions: Heartburn Additional Instructions: Follow up with your primary care if needed. Problem Qualifiers Primary Impression: GERD (gastroesophageal reflux disease) Esophagitis presence: esophagitis presence not specified Qualified Codes: K21.9 - Gastro-esophageal reflux disease without esophagitis KYLE HASKINS ENVIRONMENTAL SCIENCE INSTRUCTOR Nov 06, 2018 17:58
[2018-11-06 18:01] LABS: CALCIUM 9.1 mg/dL (8.5-10.1); CREATININE 0.9 mg/dL (0.7-1.3); GFR 115.5; POTASSIUM 3.6 mmol/L (3.5-5.1)
[2018-11-06 18:07] LABS: ALBUMIN 3.6 g/dL (3.4-5.0); TOTAL BILIRUBIN 0.2 mg/dL (0.2-1.0); TOTAL PROTEIN 7.1 g/dL (6.4-8.2)
[2018-11-06 18:57] LABS: BILIRUBIN,URINE NEGATIVE (NEG); CLARITY,URINE CLEAR; COLOR,URINE YELLOW; NITRITE,URINE NEGATIVE (NEG); PROTEIN,URINE NEGATIVE (NEG-TRACE)
[2018-11-06 19:08] LABS: BARBITURATES NEG (NEG); BENZODIAZEPINES NEG (NEG); CANNABINOIDS POS (NEG); COCAINE NEG (NEG); METHADONE NEG (NEG); OPIATES NEG (NEG); PHENCYCLIDINE NEG (NEG)
[2018-11-06 19:42] LABS: AMPHETAMINE/METHAMPHETAMINE NEG (NEG)
[2018-11-06 19:47] VITALS: BP 131/71
[2018-11-06 19:58] LABS: BACTERIA,URINE 0 /HPF (0-FEW); RBC,URINE 0 /HPF (0-2); SQUAMOUS EPITHELIAL CELL,UR OCC /LPF; WBC,URINE 0 /HPF (0-4)
--- NOTE | 2018-11-06 20:59 | RAD ---
KUB, 11/06/2018: HISTORY: Epigastric pain There is gas and stool scattered throughout the colon in a nonspecific pattern. There is no evidence organomegaly. Lower pelvic calcifications are probably phleboliths. IMPRESSION: No acute abdominal abnormality is detected. Chest, 2 views, 11/06/2018: HISTORY: Epigastric pain The heart size is normal. The lungs are clear. There is no evidence of pleural fluid. IMPRESSION: No acute cardiopulmonary abnormality is detected. Electronically signed by: Asa Avelar MD (11/06/2018 8:54 PM) [facility]
--- NOTE | 2018-11-06 20:59 | RAD ---
KUB, 11/06/2018: HISTORY: Epigastric pain There is gas and stool scattered throughout the colon in a nonspecific pattern. There is no evidence organomegaly. Lower pelvic calcifications are probably phleboliths. IMPRESSION: No acute abdominal abnormality is detected. Chest, 2 views, 11/06/2018: HISTORY: Epigastric pain The heart size is normal. The lungs are clear. There is no evidence of pleural fluid. IMPRESSION: No acute cardiopulmonary abnormality is detected. Electronically signed by: Asa Avelar MD (11/06/2018 8:54 PM) [facility]
== END 2018-11-06 19:57 | disposition home or self-care (01) ==
LOC: ER 16:42
DX: K21.9 Gastro-esophageal reflux disease without esophagitis (principal); R44.0 Auditory hallucinations; F32.9 Major depressive disorder, single episode, unspecified; F17.200 Nicotine dependence, unspecified, uncomplicated; F20.9 Schizophrenia, unspecified
CPT/HCPCS: 36415; 71046; 74018; 80053; 80307; 81001; 83690; 85025; 99284

== ENCOUNTER 2019-03-31 19:19 | Emergency (ER) | payer OTHER ==
[~2019-03-31] VITALS: Ht 172.7 cm; Wt 86.2 kg
[~2019-03-31 19:19] MED LIST changes: +RANI-376 PO; -RANI150T21 PO
[2019-03-31 21:00] VITALS: BP 129/73
[2019-03-31] MEDS ORDERED: FAMO-63 PO (21:31)
--- NOTE | 2019-03-31 21:31 | PHYS DOC ---
Past Medical History Past Medical History: Depression, GERD, Schizophrenia, Other Additional Past Medical Histor: drug abuse Past Surgical History: Other Additional Past Surgical Histo: EGD W/REMOVAL OF FOREIGN BODY Alcohol Use: None Drug Use: Marijuana Adult General Chief Complaint Chief Complaint: ABDOMINAL PAIN HPI HPI Patient is a 38 year old male with a history of schizophrenia, depression, acid reflex, who presents to the ED today requesting GI cocktail. Patient states he has acid reflex flareup and a GI cocktail typically helps with the symptoms. Denies any nausea vomiting. He states he has intermittent mild epigastric pain. Describes the pain as burning. Review of Systems Review of Systems Constitutional: Denies fever or chills [] Eyes: Denies change in visual acuity, redness, or eye pain [] HENT: Denies nasal congestion or sore throat [] Respiratory: Denies cough or shortness of breath [] Cardiovascular: No additional information not addressed in HPI [] GI: Reports epigastric pain and requesting a GI cocktail, denies nausea, vomiting, bloody stools or diarrhea [] : Denies dysuria or hematuria [] Musculoskeletal: Denies back pain or joint pain [] Integument: Denies rash or skin lesions [] Neurologic: Denies headache, focal weakness or sensory changes [] All other systems were reviewed and found to be within normal limits, except as documented in this note. Allergies Allergies Allergies Coded Allergies Type Severity Reaction Last Updated Verified No Known Drug Allergies 02/14/17 No Physical Exam Physical Exam Constitutional: Well developed, well nourished, no acute distress, non-toxic appearance. [] HENT: Normocephalic, atraumatic, bilateral external ears normal, oropharynx moist, no oral exudates, nose normal. [] Eyes: PERRLA, EOMI, conjunctiva normal, no discharge. [] Neck: Normal range of motion, no tenderness, supple, no stridor. [] Cardiovascular:Heart rate regular rhythm, no murmur [] Lungs & Thorax: Bilateral breath sounds clear to auscultation [] Abdomen: Bowel sounds normal, soft, no tenderness, no masses, no pulsatile masses. [] Skin: Warm, dry, no erythema, no rash. [] Back: No tenderness, no CVA tenderness. [] Extremities: No tenderness, no cyanosis, no clubbing, ROM intact, no edema. [] Neurologic: Alert and oriented X 3, normal motor function, normal sensory function, no focal deficits noted. [] Psychologic: Affect normal, judgement normal, mood normal. [] Current Patient Data Vital Signs Vital Signs Date Time Temp Pulse Resp B/P (MAP) Pulse Ox O2 Delivery O2 Flow Rate FiO2 03/31/19 21:00 98.1 78 20 129/73 (91) 97 Room Air 98.1 EKG EKG [] Radiology/Procedures Radiology/Procedures [] Course & Med Decision Making Course & Med Decision Making Pertinent Labs and Imaging studies reviewed. (See chart for details) This is a 38-year-old male patient presented to the ED today requesting GI cocktail for acid reflex, GI cocktail was given. Description for Pepcid provided. Follow-up with GI in 1-2 weeks as needed. Dragon Disclaimer Dragon Disclaimer This electronic medical record was generated, in whole or in part, using a voice recognition dictation system. Departure Departure Impression: Primary Impression: GERD (gastroesophageal reflux disease) Disposition: HOME, SELF-CARE Condition: STABLE Referrals: UNKNOWN PCP NAME (PCP) SAI ALTAMIRANO MD follow up in 1 week Patient Instructions: Diet for Gastroesophageal Reflux Disease, Adult, Gastroesophageal Reflux Disease, Adult, [id number] Additional Instructions: You were evaluated emergency room for acid reflex. Take the prescribed Pepcid as ordered. Follow-up with your own doctor the provided wire winder in 1-2 weeks. Scripts Famotidine (PEPCID) 20 Mg Tablet 20 MG PO DAILY, #7 TAB Prov: YOGESH DIAZ APRN 03/31/19 Problem Qualifiers Primary Impression: GERD (gastroesophageal reflux disease) Esophagitis presence: esophagitis presence not specified Qualified Codes: K21.9 - Gastro-esophageal reflux disease without esophagitis YOGESH DIAZ APRN March 31, 2019 21:31
[2019-03-31] MEDS ORDERED: LIDO:MAALOX 1:1 20 ML SINGLE DOSE. SWSW ONE (22:00)
== END 2019-03-31 21:45 | disposition home or self-care (01) ==
LOC: ER 19:19
DX: K21.9 Gastro-esophageal reflux disease without esophagitis (principal); F32.9 Major depressive disorder, single episode, unspecified
CPT/HCPCS: 99282; 99283

== ENCOUNTER 2019-05-17 00:16 | Emergency (ER) | payer OTHER ==
[~2019-05-17] VITALS: Ht 180.3 cm; Wt 90.7 kg
[~2019-05-17 00:16] MED LIST changes: +FAMO-63 PO
[2019-05-17 00:59] LABS: BASO # 0.1 x10^3/uL (0.0-0.2); BASO % 1 % (0-3); EOS % 0 % (0-3); HEMATOCRIT 44.6 % (39.0-53.0); HEMOGLOBIN 15.5 g/dL (13.0-17.5); LYMPH % 23 % (24-48); MEAN CORPUSCULAR HEMOGLOBIN 31 pg (25-35); MEAN CORPUSCULAR HGB CONC 35 g/dL (31-37); MEAN CORPUSCULAR VOLUME 90 fL (79-100); MONO # 0.8 x10^3/uL (0.0-1.1); MONO % 9 % (0-9); NEUT # 5.9 x10^3uL (1.8-7.7); NEUT % 67 % (31-73); PLATELET COUNT 219 x10^3/uL (140-400); RED BLOOD COUNT 4.94 x10^6/uL (4.30-5.70); RED CELL DISTRIBUTION WIDTH 12.9 % (11.5-14.5); WHITE BLOOD COUNT 8.8 x10^3/uL (4.0-11.0)
[2019-05-17] MEDS ORDERED: HALOPERIDOL LACTATE 5 MG/ML VIAL. IM ONE (01:00)
[2019-05-17] MEDS ORDERED: IV NORMAL SALINE 1000ML BAG 1,000 ML IV ONE (01:00)
[2019-05-17 01:11] LABS: CALCIUM 10.3 mg/dL (8.5-10.1); CREATININE 1.1 mg/dL (0.7-1.3); GFR 91.1
[2019-05-17 01:17] LABS: ALBUMIN 4.7 g/dL (3.4-5.0); ALBUMIN/GLOBULIN RATIO 1.4 (1.0-1.7); TOTAL BILIRUBIN 0.3 mg/dL (0.2-1.0); TOTAL PROTEIN 8.1 g/dL (6.4-8.2)
[2019-05-17 01:48] VITALS: BP 126/69
[2019-05-17 01:49] LABS: BILIRUBIN,URINE NEGATIVE (NEG); CLARITY,URINE TURBID; COLOR,URINE YELLOW; NITRITE,URINE NEGATIVE (NEG); PH,URINE 7.5; PROTEIN,URINE NEGATIVE (NEG-TRACE); UROBILINOGEN,URINE 0.2 mg/dL (0.2 mg/dL)
[2019-05-17 01:54] LABS: AMORPHOUS SEDIMENT,UR PRESENT /HPF; BACTERIA,URINE 0 /HPF (0-FEW); RBC,URINE 0 /HPF (0-2); WBC,URINE 0 /HPF (0-4)
--- NOTE | 2019-05-17 02:37 | PHYS DOC ---
Past Medical History Past Medical History: Depression, GERD, Schizophrenia, Other Additional Past Medical Histor: drug abuse Past Surgical History: Other Additional Past Surgical Histo: EGD W/REMOVAL OF FOREIGN BODY Alcohol Use: None Drug Use: Marijuana, Other Social History Narrative: K2 Adult General Chief Complaint Chief Complaint: ABDOMINAL PAIN HPI HPI Patient is a 39 year old m p/w biba vomiting. onset of symptoms just after smoking k2. burning epigastric abdo pain, simlar to prior gerd. bearden by pt jossy loredo Review of Systems Review of Systems bearden by psych Current Medications Current Medications Current Medications Medications (Trade) Dose Ordered Sig/Hayde Start Time Stop Time Status Last Admin Dose Admin Haloperidol Lactate (Haldol Inj) 5 mg 1X ONCE 05/17/19 01:00 05/17/19 01:01 DC 05/17/19 00:43 5 MG Sodium Chloride 1,000 ml @ 1,000 mls/hr 1X ONCE 05/17/19 01:00 05/17/19 01:59 DC 05/17/19 00:43 1,000 MLS/HR Allergies Allergies Allergies Coded Allergies Type Severity Reaction Last Updated Verified No Known Drug Allergies 02/14/17 No Physical Exam Physical Exam Constitutional: Well developed, well nourished, no acute distress, non-toxic appearance. [] HENT: Normocephalic, atraumatic, bilateral external ears normal, oropharynx moist, no oral exudates, nose normal. [] Eyes: PERRLA, EOMI, conjunctiva normal, no discharge. [] Neck: Normal range of motion, no tenderness, supple, no stridor. [] Cardiovascular:Heart rate regular rhythm, no murmur [] Lungs & Thorax: Bilateral breath sounds clear to auscultation [] Abdomen: Bowel sounds normal, soft, mild epigastric tenderness, no masses, no pulsatile masses. [] Skin: Warm, dry, no erythema, no rash. [] Extremities: No tenderness, no cyanosis, no clubbing, ROM intact, no edema. [] Neurologic: Alert and oriented X 3, normal motor function, normal sensory function, no focal deficits noted. [] Psychologic odd affect. moaning intermittently. Current Patient Data Vital Signs Vital Signs Date Time Temp Pulse Resp B/P (MAP) Pulse Ox O2 Delivery O2 Flow Rate FiO2 05/17/19 01:48 48 16 126/69 (88) 99 Room Air 05/17/19 00:35 98.4 98.4 Lab Values Laboratory Tests Test 05/17/19 00:25 05/17/19 01:41 White Blood Count 8.8 x10^3/uL (4.0-11.0) Red Blood Count 4.94 x10^6/uL (4.30-5.70) Hemoglobin 15.5 g/dL (13.0-17.5) Hematocrit 44.6 % (39.0-53.0) Mean Corpuscular Volume 90 fL (79-100) Mean Corpuscular Hemoglobin 31 pg (25-35) Mean Corpuscular Hemoglobin Concent 35 g/dL (31-37) Red Cell Distribution Width 12.9 % (11.5-14.5) Platelet Count 219 x10^3/uL (140-400) Neutrophils (%) (Auto) 67 % (31-73) Lymphocytes (%) (Auto) 23 % (24-48) L Monocytes (%) (Auto) 9 % (0-9) Eosinophils (%) (Auto) 0 % (0-3) Basophils (%) (Auto) 1 % (0-3) Neutrophils # (Auto) 5.9 x10^3uL (1.8-7.7) Lymphocytes # (Auto) 2.0 x10^3/uL (1.0-4.8) Monocytes # (Auto) 0.8 x10^3/uL (0.0-1.1) Eosinophils # (Auto) 0.0 x10^3/uL (0.0-0.7) Basophils # (Auto) 0.1 x10^3/uL (0.0-0.2) Sodium Level 140 mmol/L (136-145) Potassium Level 4.0 mmol/L (3.5-5.1) Chloride Level 101 mmol/L (98-107) Carbon Dioxide Level 31 mmol/L (21-32) Anion Gap 8 (6-14) Blood Urea Nitrogen 13 mg/dL (8-26) Creatinine 1.1 mg/dL (0.7-1.3) Estimated GFR (Cockcroft-Gault) 91.1 BUN/Creatinine Ratio 12 (6-20) Glucose Level 110 mg/dL (70-99) H Calcium Level 10.3 mg/dL (8.5-10.1) H Total Bilirubin 0.3 mg/dL (0.2-1.0) Aspartate Amino Transferase (AST) 26 U/L (15-37) Alanine Aminotransferase (ALT) 35 U/L (16-63) Alkaline Phosphatase 93 U/L (46-116) Troponin I Quantitative < 0.017 ng/mL (0.000-0.055) Total Protein 8.1 g/dL (6.4-8.2) Albumin 4.7 g/dL (3.4-5.0) Albumin/Globulin Ratio 1.4 (1.0-1.7) Lipase 169 U/L (73-393) Urine Collection Type Unknown Urine Color Yellow Urine Clarity Turbid Urine pH 7.5 Urine Specific Arc[place] 1.015 Urine Protein Negative mg/dL (NEG-TRACE) Urine Glucose (UA) Negative mg/dL (NEG) Urine Ketones (Stick) Negative mg/dL (NEG) Urine Blood Negative (NEG) Urine Nitrite Negative (NEG) Urine Bilirubin Negative (NEG) Urine Urobilinogen Dipstick 0.2 mg/dL (0.2 mg/dL) Urine Leukocyte Esterase Negative (NEG) Urine RBC 0 /HPF (0-2) Urine WBC 0 /HPF (0-4) Urine Squamous Epithelial Cells None /LPF Urine Amorphous Sediment Present /HPF Urine Bacteria 0 /HPF (0-FEW) Urine Mucus Slight /LPF Laboratory Tests 05/17/19 00:25 Laboratory Tests 05/17/19 00:25 EKG EKG [] Radiology/Procedures Radiology/Procedures [] Course & Med Decision Making Course & Med Decision Making Pertinent Labs and Imaging studies reviewed. (See chart for details) []labs reassuring ekg sinus bradycardia no stemi no ischemic changes pt given haldol symptoms markedly improved. abdo exam not c/w intraabdominal infection pt used k2 prior to onset of symptoms. Dragon Disclaimer Dragon Disclaimer This electronic medical record was generated, in whole or in part, using a voice recognition dictation system. Departure Departure Impression: Primary Impression: Abdominal pain Disposition: HOME, SELF-CARE Condition: STABLE Referrals: UNKNOWN PCP NAME (PCP) Patient Instructions: Nausea and Vomiting, [id number] DIAMANTE ASHBY MD May 17, 2019 02:37
--- NOTE | 2019-05-17 06:16 | EKG ---
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
== END 2019-05-17 02:05 | disposition home or self-care (01) ==
LOC: ER 00:16
DX: R10.13 Epigastric pain (principal); R11.10 Vomiting, unspecified; F12.10 Cannabis abuse, uncomplicated; R00.1 Bradycardia, unspecified; K21.9 Gastro-esophageal reflux disease without esophagitis; F20.9 Schizophrenia, unspecified
CPT/HCPCS: 36415; 80053; 81001; 83690; 84484; 85025; 93005; 96360; 96372; 99285; J1630; J7030

== ENCOUNTER 2019-12-03 20:28 | Emergency (ER) | payer MEDICAID, OTHER ==
[~2019-12-03] VITALS: Ht 172.7 cm; Wt 190.0 kg
[2019-12-03] MEDS ORDERED: IV NORMAL SALINE 1000ML BAG 1,000 ML IV SCH (20:35)
[2019-12-03 20:43] LABS: BASO % 1 % (0-3); EOS # 0.1 x10^3/uL (0.0-0.7); EOS % 2 % (0-3); HEMATOCRIT 43.7 % (39.0-53.0); HEMOGLOBIN 15.1 g/dL (13.0-17.5); LYMPH # 3.5 x10^3/uL (1.0-4.8); LYMPH % 50 % (24-48); MEAN CORPUSCULAR HEMOGLOBIN 31 pg (25-35); MEAN CORPUSCULAR HGB CONC 35 g/dL (31-37); MEAN CORPUSCULAR VOLUME 90 fL (79-100); MONO # 0.4 x10^3/uL (0.0-1.1); MONO % 6 % (0-9); NEUT # 2.9 x10^3/uL (1.8-7.7); NEUT % 41 % (31-73); PLATELET COUNT 235 x10^3/uL (140-400); RED BLOOD COUNT 4.86 x10^6/uL (4.30-5.70); RED CELL DISTRIBUTION WIDTH 12.8 % (11.5-14.5)
[2019-12-03] MEDS ORDERED: KETOROLAC 30 MG/ML VIAL. IVP ONE (20:45)
[2019-12-03] MEDS ORDERED: LIDO:MAALOX 1:1 20 ML SINGLE DOSE. SWSW ONE (20:45)
[2019-12-03 20:52] LABS: CALCIUM 9.5 mg/dL (8.5-10.1); GFR 101.7; POTASSIUM 3.9 mmol/L (3.5-5.1)
[2019-12-03 20:57] LABS: ALBUMIN 4.1 g/dL (3.4-5.0); ALBUMIN/GLOBULIN RATIO 1.6 (1.0-1.7); MAGNESIUM 2.1 mg/dL (1.8-2.4); TOTAL BILIRUBIN 0.2 mg/dL (0.2-1.0); TOTAL PROTEIN 6.7 g/dL (6.4-8.2)
--- NOTE | 2019-12-03 21:22 | RAD ---
PORTABLE CHEST 1V History: Chest wall pain Comparison: November 06, 2018 Findings: Single view of the chest is submitted. There is no infiltrate, pneumothorax, or effusion. The pericardial cardiac silhouette is similar allowing for differences in technique. Impression: 1. There is no radiographic evidence of acute cardiopulmonary disease. Electronically signed by: Ace Reyna MD (12/03/2019 9:19 PM) [facility]
[2019-12-03 21:34] VITALS: BP 114/73
[2019-12-03] MEDS ORDERED: DICL50TA4 PO (21:52)
--- NOTE | 2019-12-03 21:52 | PHYS DOC ---
Past Medical History Past Medical History: Depression, GERD, Schizophrenia, Other Additional Past Medical Histor: drug abuse Past Surgical History: Other Additional Past Surgical Histo: EGD W/REMOVAL OF FOREIGN BODY Alcohol Use: None Drug Use: Marijuana, Other Adult General Chief Complaint Chief Complaint: CHEST WALL PAIN HPI HPI Patient is a 39 year old male who presents with complaint of left-sided chest discomfort that started a couple of hours ago. Patient describes pain as sharp and stabbing in nature and states that it hurts worse when he takes in a deep breath. He denies any cough. He denies any nausea, vomiting or diaphoresis.[] Review of Systems Review of Systems Constitutional: Denies fever or chills [] Respiratory: Denies cough or shortness of breath [] Cardiovascular: No additional information not addressed in HPI [] Musculoskeletal: Admits to left-sided mid back pain [] Integument: Denies rash or skin lesions [] Neurologic: Denies headache, focal weakness or sensory changes [] All other systems were reviewed and found to be within normal limits, except as documented in this note. Current Medications Current Medications Current Medications Medications (Trade) Dose Ordered Sig/Hayde Start Time Stop Time Status Last Admin Dose Admin Ketorolac Tromethamine (Toradol 30mg Vial) 30 mg 1X ONCE 12/03/19 20:45 12/03/19 20:46 DC 12/03/19 21:11 30 MG Multi-Ingredient Mouthwash/Gargle (Gi Cocktail) 20 ml 1X ONCE 12/03/19 20:45 12/03/19 20:46 DC 12/03/19 20:45 20 ML Sodium Chloride 1,000 ml @ 1,000 mls/hr Q1H 12/03/19 20:35 12/03/19 21:34 DC 12/03/19 20:45 1,000 MLS/HR Allergies Allergies Allergies Coded Allergies Type Severity Reaction Last Updated Verified No Known Drug Allergies 02/14/17 No Physical Exam Physical Exam Constitutional: Well developed, well nourished, no acute distress, non-toxic appearance. [] HENT: Normocephalic, atraumatic, bilateral external ears normal, oropharynx moist, no oral exudates, nose normal. [] Eyes: PERRLA, EOMI, conjunctiva normal, no discharge. [] Neck: Normal range of motion, no tenderness, supple, no stridor. [] Cardiovascular: Regular rate and rhythm. There is reproducible tenderness along the left mid to lower sternal margin.[] Lungs & Thorax: Bilateral breath sounds clear to auscultation [] Abdomen: Bowel sounds normal, soft, no tenderness. [] Skin: Warm, dry, no erythema, no rash. [] Extremities: No tenderness, no cyanosis, no clubbing, ROM intact, no edema. [] Neurologic: Alert and oriented X 3, no focal deficits noted. [] Current Patient Data Vital Signs Vital Signs Date Time Temp Pulse Resp B/P (MAP) Pulse Ox O2 Delivery O2 Flow Rate FiO2 12/03/19 20:28 98.0 67 14 138/77 (97) 98 Room Air 98.0 Lab Values Laboratory Tests Test 12/03/19 20:35 White Blood Count 7.0 x10^3/uL (4.0-11.0) Red Blood Count 4.86 x10^6/uL (4.30-5.70) Hemoglobin 15.1 g/dL (13.0-17.5) Hematocrit 43.7 % (39.0-53.0) Mean Corpuscular Volume 90 fL (79-100) Mean Corpuscular Hemoglobin 31 pg (25-35) Mean Corpuscular Hemoglobin Concent 35 g/dL (31-37) Red Cell Distribution Width 12.8 % (11.5-14.5) Platelet Count 235 x10^3/uL (140-400) Neutrophils (%) (Auto) 41 % (31-73) Lymphocytes (%) (Auto) 50 % (24-48) H Monocytes (%) (Auto) 6 % (0-9) Eosinophils (%) (Auto) 2 % (0-3) Basophils (%) (Auto) 1 % (0-3) Neutrophils # (Auto) 2.9 x10^3/uL (1.8-7.7) Lymphocytes # (Auto) 3.5 x10^3/uL (1.0-4.8) Monocytes # (Auto) 0.4 x10^3/uL (0.0-1.1) Eosinophils # (Auto) 0.1 x10^3/uL (0.0-0.7) Basophils # (Auto) 0.0 x10^3/uL (0.0-0.2) Sodium Level 139 mmol/L (136-145) Potassium Level 3.9 mmol/L (3.5-5.1) Chloride Level 102 mmol/L (98-107) Carbon Dioxide Level 28 mmol/L (21-32) Anion Gap 9 (6-14) Blood Urea Nitrogen 19 mg/dL (8-26) Creatinine 1.0 mg/dL (0.7-1.3) Estimated GFR (Cockcroft-Gault) 101.7 BUN/Creatinine Ratio 19 (6-20) Glucose Level 132 mg/dL (70-99) H Calcium Level 9.5 mg/dL (8.5-10.1) Magnesium Level 2.1 mg/dL (1.8-2.4) Total Bilirubin 0.2 mg/dL (0.2-1.0) Aspartate Amino Transferase (AST) 30 U/L (15-37) Alanine Aminotransferase (ALT) 30 U/L (16-63) Alkaline Phosphatase 97 U/L (46-116) Troponin I Quantitative < 0.017 ng/mL (0.000-0.055) Total Protein 6.7 g/dL (6.4-8.2) Albumin 4.1 g/dL (3.4-5.0) Albumin/Globulin Ratio 1.6 (1.0-1.7) Laboratory Tests 12/03/19 20:35 Laboratory Tests 12/03/19 20:35 EKG EKG EKG demonstrates normal sinus rhythm with rate of 61.[] Radiology/Procedures Radiology/Procedures [] Impressions: PROCEDURE: PORTABLE CHEST 1V PORTABLE CHEST 1V History: Chest wall pain Comparison: November 06, 2018 Findings: Single view of the chest is submitted. There is no infiltrate, pneumothorax, or effusion. The pericardial cardiac silhouette is similar allowing for differences in technique. Impression: 1. There is no radiographic evidence of acute cardiopulmonary disease. Electronically signed by: Ace Reyna MD (12/03/2019 9:19 PM) [facility] Course & Med Decision Making Course & Med Decision Making Pertinent Labs and Imaging studies reviewed. (See chart for details) [] Dragon Disclaimer Dragon Disclaimer This electronic medical record was generated, in whole or in part, using a voice recognition dictation system. Departure Departure Impression: Primary Impression: Costochondritis Disposition: 01 HOME, SELF-CARE Condition: STABLE Referrals: UNKNOWN PCP NAME (PCP) Patient Instructions: Costochondritis Scripts Diclofenac Sodium (DICLOFENAC SODIUM) 50 Mg Tablet. 1 TAB PO BID PRN for PAIN, #20 TAB Prov: VIDAL BHARDWAJ Jr. DO 12/03/19 VIDAL BHARDWAJ Jr. DO Dec 03, 2019 21:52
[2019-12-03] MEDS ORDERED: HYDR30CR61 TP (21:58)
--- NOTE | 2019-12-04 16:53 | EKG ---
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
== END 2019-12-03 22:02 | disposition home or self-care (01) ==
LOC: ER 20:28
DX: M94.0 Chondrocostal junction syndrome [Tietze] (principal); K21.9 Gastro-esophageal reflux disease without esophagitis; F20.9 Schizophrenia, unspecified; F32.9 Major depressive disorder, single episode, unspecified
CPT/HCPCS: 36415; 71045; 80053; 83735; 84484; 85025; 93005; 96374; 99285; J1885; J7030

== ENCOUNTER 2020-05-15 17:35 | Emergency (ER) | payer MEDICAID ==
[~2020-05-15] VITALS: Ht 167.6 cm; Wt 8.8 kg
[~2020-05-15 17:35] MED LIST changes: +DICL50TA4 PO; -HYDR28.311 RC; +HYDR28.337 RC; +HYDR30CR61 TP
[2020-05-15 18:23] VITALS: BP 154/102
[2020-05-15] MEDS ORDERED: CYCL10TA2 PO (18:47)
--- NOTE | 2020-05-15 18:48 | PHYS DOC ---
Past Medical History Past Medical History: Depression, GERD, Schizophrenia, Other Additional Past Medical Histor: drug abuse (RUBIN BROWN APRN) Past Surgical History: Other Additional Past Surgical Histo: EGD W/REMOVAL OF FOREIGN BODY (RUBIN BROWN APRN) Smoking Status: Current Every Day Smoker Alcohol Use: None Drug Use: Marijuana, Other (RUBIN BROWN APRN) General Adult EDM: Chief Complaint: DENTAL PROBLEM HPI: HPI: Patient is a 40 year old male presents to the emergency room via EMS for evaluation of left jaw pain since year 1999. Patient is difficult to direct, tells me the pain has been there for this many years. States he has seen a dentist but "he was racist". Patient states no pain with any of his teeth. Hurts when he chews. Denies trauma or injury. (RUBIN BROWN APRN) Review of Systems: Review of Systems: Constitutional: Denies fever or chills. [] Eyes: Denies change in visual acuity. [] HENT: Denies nasal congestion or sore throat. [] Respiratory: Denies cough or shortness of breath. [] Cardiovascular: Denies chest pain or edema. [] GI: Denies abdominal pain, nausea, vomiting, bloody stools or diarrhea. [] : Denies dysuria. [] Musculoskeletal: Denies back pain or joint pain. [] Integument: Denies rash. [] Neurologic: Denies headache, focal weakness or sensory changes. [] Endocrine: Denies polyuria or polydipsia. [] Lymphatic: Denies swollen glands. [] Psychiatric: Denies depression or anxiety. [] (RUBIN BROWN APRN) Heart Score: Risk Factors: Risk Factors: DM, Current or recent (<one month) smoker, HTN, HLP, family history of CAD, obesity. Risk Scores: Score 0 - 3: 2.5% MACE over next 6 weeks - Discharge Home Score 4 - 6: 20.3% MACE over next 6 weeks - Admit for Clinical Observation Score 7 - 10: 72.7% MACE over next 6 weeks - Early Invasive Strategies (RUBIN BROWN APRN) Allergies: Allergies: Allergies Coded Allergies Type Severity Reaction Last Updated Verified No Known Drug Allergies 02/14/17 No (RUBIN BROWN APRN) Physical Exam: PE: Constitutional: Well developed, well nourished, no acute distress, non-toxic appearance. [] HENT: Normocephalic, atraumatic, bilateral external ears normal, oropharynx moist, no oral exudates, nose normal, left temporomandibular joint tender to palpation, no crepitus, painful opening of the jaw on the left, no tenderness to the maxilla. [] Eyes: PERRLA, EOMI, conjunctiva normal, no discharge. [] Neck: Normal range of motion, no tenderness, supple, no stridor. [] Skin: Warm, dry, no erythema, no rash. [] Back: No tenderness, no CVA tenderness. [] Extremities: No tenderness, no cyanosis, no clubbing, ROM intact, no edema. [] Neurologic: Alert and oriented X 3, normal motor function, normal sensory fu nction, no focal deficits noted. [] Psychologic: Difficult to direct, uncooperative with exam (RUBIN BROWN APRN) Current Patient Data: Vital Signs: Vital Signs Date Time Temp Pulse Resp B/P (MAP) Pulse Ox O2 Delivery O2 Flow Rate FiO2 05/15/20 18:23 98.3 63 18 154/102 (119) 63 Room Air 98.3 (RUBIN BROWN APRN) EKG: EKG: [] (RUBIN BROWN APRN) Radiology/Procedures: Radiology/Procedures: [] (RUBIN BROWN APRN) Course & Med Decision Making: Course & Med Decision Making Pertinent Labs and Imaging studies reviewed. (See chart for details) [Discussed with patient importance of follow-up with dentist for TMJ disorder, heat to the area, muscle relaxers, avoid chewy or crunchy food. Return to ER for new or worsening symptoms.] (RUBIN BROWN APRN) Sharmin Disclaimer: Sharmin Disclaimer: This electronic medical record was generated, in whole or in part, using a voice recognition dictation system. (RUBIN BROWN APRN) Departure Departure Impression: Primary Impression: TMJ (temporomandibular joint syndrome) Disposition: 01 HOME, SELF-CARE Condition: STABLE Referrals: UNKNOWN PCP NAME (PCP) Patient Instructions: Temporomandibular Joint Pain-Brief Scripts Cyclobenzaprine Hcl (CYCLOBENZAPRINE HCL) 10 Mg Tablet 1 TAB PO TID, #30 TAB Prov: RUBIN BROWN APRN 05/15/20 Justicifation of Admission Dx: Justifications for Admission: Justification of Admission Dx: N/A (RUBIN BROWN APRN) Attending Signature Attending Signature I have participated in the care of this patient and I have reviewed and agree with all pertinent clinical information above including history, exam, and recommendations. (DANIEL NOLASCO DO) RUBIN BROWN APRN May 15, 2020 18:48 DANIEL NOLASCO DO May 15, 2020 23:14
== END 2020-05-15 19:00 | disposition home or self-care (01) ==
LOC: ER 17:35
DX: M26.622 Arthralgia of left temporomandibular joint (principal); K08.89 Other specified disorders of teeth and supporting structures; K21.9 Gastro-esophageal reflux disease without esophagitis; F32.9 Major depressive disorder, single episode, unspecified; F20.9 Schizophrenia, unspecified; F17.200 Nicotine dependence, unspecified, uncomplicated; F12.90 Cannabis use, unspecified, uncomplicated; Z98.890 Other specified postprocedural states
CPT/HCPCS: 99283

== ENCOUNTER 2020-08-24 23:18 | Emergency (ER) | payer MEDICAID ==
[~2020-08-24] VITALS: Ht 172.7 cm; Wt 90.0 kg
[2020-08-25 02:45] VITALS: BP 128/74
[2020-08-25] MEDS ORDERED: LIDO:MAALOX 1:1 20 ML SINGLE DOSE. SWSW ONE (03:45)
--- NOTE | 2020-08-25 04:06 | PHYS DOC ---
Past Medical History Past Medical History: Depression, GERD, Schizophrenia, Other Additional Past Medical Histor: drug abuse Past Surgical History: Other Additional Past Surgical Histo: EGD W/REMOVAL OF FOREIGN BODY Smoking Status: Current Every Day Smoker Alcohol Use: None Drug Use: Marijuana, Other General Adult EDM: Chief Complaint: ABDOMINAL PAIN HPI: HPI: 40-year-old male past medical history significant for schizophrenia, GERD and depression, presents to the ED with complaints of " tightness of my muscles, a gas problem," while pointing to his epigastric region, for the past 4 years, intermittent currently lasting for 3 hours. Patient is requesting a " GI cocktail." States symptoms shortly started after he ate a hamburger-believes the bread crust upset stomach. Last vomit was yesterday, light brown in color. No history of blood transfusions. Denies any alcohol or drug use. Has no ro utine primary care physician reports he has never had an upper GI. Is passing gas. Review of Systems: Review of Systems: Constitutional: Denies fever or chills. [] Eyes: Denies change in visual acuity. [] HENT: Denies nasal congestion or sore throat. [] Respiratory: Denies cough or shortness of breath. [] Cardiovascular: Denies chest tearing/ripping/tightness pain or syncope or edema. [] GI: Denies anausea, vomiting, bloody stools or diarrhea. [] : Denies dysuria. [] Or hematuria Musculoskeletal: Denies back pain or joint pain. [] Integument: Denies rash. [] Neurologic: Denies headache, focal weakness or sensory changes. [] No neck stiffness Endocrine: Denies polyuria or polydipsia. [] Lymphatic: Denies swollen glands. [] Psychiatric: Denies depression or anxiety. [] Denies SI or HI Heart Score: Risk Factors: Risk Factors: DM, Current or recent (<one month) smoker, HTN, HLP, family history of CAD, obesity. Risk Scores: Score 0 - 3: 2.5% MACE over next 6 weeks - Discharge Home Score 4 - 6: 20.3% MACE over next 6 weeks - Admit for Clinical Observation Score 7 - 10: 72.7% MACE over next 6 weeks - Early Invasive Strategies Current Medications: Current Medications Medications (Trade) Dose Ordered Sig/Hayde Start Time Stop Time Status Last Admin Dose Admin Multi-Ingredient Mouthwash/Gargle (Gi Cocktail) 20 ml 1X ONCE 08/25/20 03:45 08/25/20 03:46 DC 08/25/20 04:00 20 ML Allergies: Allergies: Allergies Coded Allergies Type Severity Reaction Last Updated Verified No Known Drug Allergies 02/14/17 No Physical Exam: PE: Constitutional: Well developed, well nourished, no acute distress, non-toxic appearance. [] HENT: Normocephalic, atraumatic, Eyes: EOMI, conjunctiva normal, Neck: Normal range of motion, supple, Cardiovascular:Heart rate regular rhythm, no murmur [] Lungs & Thorax: Bilateral breath sounds clear to auscultation [] Abdomen: soft, no tenderness, no masses, no pulsatile masses. [] Skin: Warm, dry, no erythema, no rash. [] Back: No tenderness, no CVA tenderness. [] Extremities: No tenderness, no cyanosis, no clubbing, ROM intact, no edema. [] Neurologic: Alert and oriented X 3, normal motor function, normal sensory function, no focal deficits noted. [] Psychologic: Affect normal, judgement normal, mood normal. [] Current Patient Data: Vital Signs: Vital Signs Date Time Temp Pulse Resp B/P (MAP) Pulse Ox O2 Delivery O2 Flow Rate FiO2 08/25/20 02:45 86 16 128/74 (92) 98 08/25/20 00:05 98.2 Room Air 98.2 EKG: EKG: [] Radiology/Procedures: Radiology/Procedures: [] Course & Med Decision Making: Course & Med Decision Making Pertinent Labs and Imaging studies reviewed. (See chart for details) Patient was given his GI cocktail and shortly after he was requested to be discharged. Was aware I had ordered an ekg, that life-threatening processes were not excluded. I discussed differential listed below. Patient still insists on being discharged stating his symptoms are chronic. Pt refused to wait for discharge instructions. Life/limb-threatening differential includes but is not limited to, acute myocardial infarction, aortic dissection, congestive heart failure, esophageal injury including rupture, surgical abdomen, arrhythmia, cardiomyopathy, myocarditis, pericarditis, peptic ulcer disease, pneumomediastinum, pneumonia, pneumothorax, pulmonary embolus, unstable angina, rib fracture, contusion, pericardial tamponade or effusion, pulmonary contusion The patient has decided to leave our facility against medical advice. I have assessed patient's ability to make informed decision and feel the patient has the capacity to comprehend information regarding the current medical condition and appreciates the impact of the disease or condition and the consequences of various options for treatment, including foregoing treatment. The patient possesses the ability to evaluate all treatment options, comparing the risks and benefits of each option, communicate his or her choice in a consistent manner over time, and is able to make rational choices. I explained to the patient further testing, treatment, and evaluation I would like to perform in the emergency department visit as well as any possible alternatives that can be accomplished in a timely manner. I have outlined the possible risks of foregoing any or all of these interventions and the patient understands and acknowledges that the decision to leave may result in undesirable consequences such as , permanent disability, and/or loss of current lifestyle. Even though leaving AMA is not ideal, I have instructed the patient to follow any discharge instructions given, take any medications prescribed, and resume care as soon as possible with another provider. This conversation was witnessed by another member of the emergency department staff (RN) and we clearly communicated the patient is welcome to return anytime to continue care at our facility. Sharmin Disclaimer: Sharmin Disclaimer: This electronic medical record was generated, in whole or in part, using a voice recognition dictation system. Departure Departure Impression: Primary Impression: Epigastric pain Disposition: 07 AMA/ELBHAVNAD/LWBS Referrals: UNKNOWN PCP NAME (PCP) SAIDA ARREAGA DO Aug 25, 2020 04:06
== END 2020-08-25 04:07 | disposition left against medical advice (07) ==
LOC: ER 23:18
DX: R10.13 Epigastric pain (principal); R11.10 Vomiting, unspecified; K21.9 Gastro-esophageal reflux disease without esophagitis; F20.9 Schizophrenia, unspecified; F32.9 Major depressive disorder, single episode, unspecified; F17.200 Nicotine dependence, unspecified, uncomplicated
CPT/HCPCS: 99282

== ENCOUNTER 2020-11-26 20:31 | Emergency (ER) | payer MEDICAID ==
[~2020-11-26] VITALS: Ht 172.7 cm; Wt 81.8 kg
[2020-11-26] MEDS ORDERED: LIDO:MAALOX 1:1 20 ML SINGLE DOSE. SWSW ONE (21:30)
[2020-11-26] MEDS ORDERED: ALPRAZolam 0.5 MG TABLET PO ONE (22:00)
--- NOTE | 2020-11-26 22:17 | PHYS DOC ---
Past Medical History Past Medical History: Anxiety, Depression, GERD, Schizophrenia, Other Additional Past Medical Histor: drug abuse Past Surgical History: Other Additional Past Surgical Histo: EGD W/REMOVAL OF FOREIGN BODY Smoking Status: Current Every Day Smoker Alcohol Use: None Drug Use: Marijuana, Other General Adult EDM: Chief Complaint: ABDOMINAL PAIN HPI: HPI: Patient is a 40 year old male with history of schizophrenia, anxiety, depression, acid reflux, who presents to the ED today complaining of burning in his stomach and requesting GI cocktail. States symptoms began this evening. Patient also states he has history of anxiety and right now wants antianxiety medicine in the ED. Denies any suicidal/homicidal ideations. He states he does not take any of his psych medicines because he does not like how they make him feel but wants something for anxiety in the ED. Denies any chest pain or shortness of breath. Review of Systems: Review of Systems: Constitutional: Denies fever or chills. [] Eyes: Denies change in visual acuity. [] HENT: Denies nasal congestion or sore throat. [] Respiratory: Denies cough or shortness of breath. [] Cardiovascular: Denies chest pain or edema. [] GI: Reports burning in his stomach, denies nausea, vomiting, bloody stools or diarrhea. [] : Denies dysuria. [] Musculoskeletal: Denies back pain or joint pain. [] Integument: Denies rash. [] Neurologic: Denies headache, focal weakness or sensory changes. [] Endocrine: Denies polyuria or polydipsia. [] Lymphatic: Denies swollen glands. [] Psychiatric: Reports anxiety Heart Score: Risk Factors: Risk Factors: DM, Current or recent (<one month) smoker, HTN, HLP, family history of CAD, obesity. Risk Scores: Score 0 - 3: 2.5% MACE over next 6 weeks - Discharge Home Score 4 - 6: 20.3% MACE over next 6 weeks - Admit for Clinical Observation Score 7 - 10: 72.7% MACE over next 6 weeks - Early Invasive Strategies Current Medications: Current Medications Medications (Trade) Dose Ordered Sig/Hayde Start Time Stop Time Status Last Admin Dose Admin Alprazolam (Xanax) 0.5 mg 1X ONCE 11/26/20 22:00 11/26/20 22:01 DC 11/26/20 21:40 0.5 MG Multi-Ingredient Mouthwash/Gargle (Gi Cocktail) 20 ml 1X ONCE 11/26/20 21:30 11/26/20 21:31 DC 11/26/20 20:58 20 ML Allergies: Allergies: Allergies Coded Allergies Type Severity Reaction Last Updated Verified No Known Drug Allergies 02/14/17 No Physical Exam: PE: Constitutional: Well developed, well nourished, no acute distress, non-toxic appearance. [] HENT: Normocephalic, atraumatic, bilateral external ears normal, oropharynx moist, no oral exudates, nose normal. [] Eyes: PERRLA, EOMI, conjunctiva normal, no discharge. [] Neck: Normal range of motion, no tenderness, supple, no stridor. [] Cardiovascular:Heart rate regular rhythm, no murmur [] Lungs & Thorax: Bilateral breath sounds clear to auscultation [] Abdomen: Bowel sounds normal, soft, no tenderness, no masses, no pulsatile masses. [] Skin: Warm, dry, no erythema, no rash. [] Back: No tenderness, no CVA tenderness. [] Extremities: No tenderness, no cyanosis, no clubbing, ROM intact, no edema. [] Neurologic: Alert and oriented X 3, normal motor function, normal sensory function, no focal deficits noted. [] Psychologic: Appears anxious. Current Patient Data: Vital Signs: Vital Signs Date Time Temp Pulse Resp B/P (MAP) Pulse Ox O2 Delivery O2 Flow Rate FiO2 11/26/20 21:30 76 18 125/60 (81) 99 Room Air 11/26/20 20:43 98.1 98.1 EKG: EKG: [] Radiology/Procedures: Radiology/Procedures: [] Course & Med Decision Making: Course & Med Decision Making Pertinent Labs and Imaging studies reviewed. (See chart for details) This is a 40-year-old male patient presenting to the ED today complaining of burning in his stomach and refusing any work-up. He states he only wants a GI cocktail. Also complaining of anxiety and requesting something for anxiety specifically Xanax. 1 dose was given in the ED. Mary from the PAT team tried talking to patient about his psych issues including schizophrenia depression and anxiety which he stopped taking medication for. He refused help, he states he does not want to take any more psych medicines. He states he has a councillor who is helping him through this. Discharge to home. Sharmin Disclaimer: Sharmin Disclaimer: This electronic medical record was generated, in whole or in part, using a voice recognition dictation system. Departure Departure Impression: Primary Impression: GERD (gastroesophageal reflux disease) Qualified Codes: K21.9 - Gastro-esophageal reflux disease without esophagitis Additional Impression: Anxiety Disposition: 01 DC HOME SELF CARE/HOMELESS Condition: STABLE Referrals: NO PCP (PCP) follow up with your doctor in one week Patient Instructions: Anxiety and Panic Attacks, [id number], Diet for Gastroesophageal Reflux Disease, Adult, [id number], Gastroesophageal Reflux Disease, Adult Additional Instructions: You were evaluated in the emergency room. We highly recommend you consider getting help for your schizophrenia and psychiatric illnesses. YOGESH DIAZ APRN Nov 26, 2020 22:17
[2020-11-26 22:28] VITALS: BP 109/59
== END 2020-11-26 22:28 | disposition home or self-care (01) ==
LOC: ER 20:31
DX: K21.9 Gastro-esophageal reflux disease without esophagitis (principal); F41.9 Anxiety disorder, unspecified; F20.9 Schizophrenia, unspecified; F32.9 Major depressive disorder, single episode, unspecified; F17.200 Nicotine dependence, unspecified, uncomplicated
CPT/HCPCS: 99285-25

== ENCOUNTER 2020-12-25 21:56 | Emergency (ER) | payer MEDICAID ==
[~2020-12-25] VITALS: Ht 172.7 cm; Wt 81.8 kg
--- NOTE | 2020-12-25 22:15 | PHYS DOC ---
Past Medical History Past Medical History: Anxiety, Depression, GERD, Schizophrenia, Other Additional Past Medical Histor: drug abuse Past Surgical History: Other Additional Past Surgical Histo: EGD W/REMOVAL OF FOREIGN BODY Smoking Status: Current Every Day Smoker Alcohol Use: None Drug Use: Marijuana, Other General Adult EDM: Chief Complaint: HEARTBURN/GI DISTRESS HPI: HPI: Patient is a 40 year old states he is homeless, has no place to stay, recently kicked out of his last homeless chcf, tried to seek chcf at a facility called [facility] but was unable to secure a place to stay overnight. She states she called 911 and told him that he had complaints of indigestion so that he could get a ride to the emergency department here at [facility] for a warm place to stay the night. Patient denies any other complaints or any other physical symptoms. Review of Systems: Review of Systems: 14 body systems of review of systems have been reviewed. See HPI for pertinent positives and negative responses, otherwise all other systems are negative, nonpertinent or noncontributory. Heart Score: Risk Factors: Risk Factors: DM, Current or recent (<one month) smoker, HTN, HLP, family history of CAD, obesity. Risk Scores: Score 0 - 3: 2.5% MACE over next 6 weeks - Discharge Home Score 4 - 6: 20.3% MACE over next 6 weeks - Admit for Clinical Observation Score 7 - 10: 72.7% MACE over next 6 weeks - Early Invasive Strategies Allergies: Allergies: Allergies Coded Allergies Type Severity Reaction Last Updated Verified No Known Drug Allergies 02/14/17 No Physical Exam: PE: Constitutional: Well developed, well nourished, no acute distress, non-toxic appearance. Patient disheveled appearance. In no apparent distress. HENT: Normocephalic, atraumatic, bilateral external ears normal, oropharynx moist, no oral exudates, nose normal. Eyes: PERRLA, EOMI, conjunctiva normal, no discharge. Neck: Normal range of motion, no tenderness, supple, no stridor. Cardiovascular:Heart rate regular rhythm, no murmur Lungs & Thorax: Bilateral breath sounds clear to auscultation Abdomen: Bowel sounds normal, soft, no tenderness, no masses, no pulsatile masses. Skin: Warm, dry, no erythema, no rash. Back: No tenderness, no CVA tenderness. Extremities: No tenderness, no cyanosis, no clubbing, ROM intact, no edema. Neurologic: Alert and oriented X 3, normal motor function, normal sensory function, no focal deficits noted. Psychologic: Affect normal, judgement normal, mood normal. EKG: EKG: [] Radiology/Procedures: Radiology/Procedures: [] Course & Med Decision Making: Course & Med Decision Making Pertinent Labs and Imaging studies reviewed. (See chart for details) 40-year-old male, vital signs stable, presents to the emergency department because he is homeless and has no place to stay. Patient reported to EMS that he had indigestion stating that he does have indigestion and would like a GI cocktail otherwise patient states his main reason for being at the emergency department today is because he is homeless and has no place to stay and is seeking chcf overnight. ED work-up, physical examination was unremarkable, will give GI cocktail. Discussed case with ED charge nurse, ED charge nurse has secured a safe chcf for patient to stay overnight, discussed this with patient who was amenable to this plan, wishes to be discharged to that he may go to the chcf. Patient gave verbal understanding of discharge home instructions, follow-up with primary care, return to ER precautions and concerns, discharged to safe homeless chcf. Dragon Disclaimer: [employer] Disclaimer: This electronic medical record was generated, in whole or in part, using a voice recognition dictation system. Departure Departure Impression: Primary Impression: Homeless single person Additional Impression: Dyspepsia Disposition: 01 DC HOME SELF CARE/HOMELESS Condition: GOOD Referrals: NO PCP (PCP) Additional Instructions: Please use offered homeless chcf overnight, follow-up with primary care as needed, return to the emergency department for worsening symptoms or other concerns. EMERGENCY DEPARTMENT GENERAL DISCHARGE INSTRUCTIONS Thank you for coming to [facility] Emergency Department (ED) today and trusting us with you care. We trust that you had a positive experience in our Emergency Department. If you wish to speak to the department management, you may call the Director at [phone]. YOUR FOLLOW UP INSTRUCTIONS ARE FOLLOWS: 1. Do you have a private Doctor? If you do not have a private doctor, please ask for a resource list of physicians or clinics that may be able to assist you with follow up care. 2. The Emergency Physicain has interpreted your x-rays. The X-Ray specialist will also review them. If there is a change in the findings, you will be notified in 48 hours when at all possible. 3. A lab test or culture has been done, your results will be reviewed and you will be notified if you need a change in treatment. ADDITIONAL INSTRUCTIONS AND INFORMATION: 1. Your care today has been supervised by a physician who is specially trained in emergency care. Many problems require more than one evaluation for a complete diagnosis and treatment. We recommend that you schedule your follow up appointment as recommended to ensure complete treatment of you illness or injury. If you are unable to obtain follow up care and continue to have a problem, or if your condition worsens, we recommend that you return to the ED. 2. We are not able to safely determine your condition over the phone nor are we able to give sound medical advice over the phone. For these safety reasons, if you call for medical advice we will ask you to come to the ED for further evaluation. 3. If you have any questions regarding these discharge instructions please call the ED at [phone]. SAFETY INFORMATION: In the interest of safety, wellness, and injury prevention; we encourage you to wear your sealbelt, if you smoke; quite smoking, and we encourage family to use a protective helmet for bicycling and other sporting events that present an increased risk for head injury. IF YOUR SYMPTOMS WORSEN OR NEW SYMPTOMS DEVELOP, OR YOU HAVE CONCERNS ABOUT YOUR CONDITION; OR IF YOUR CONDITION WORSENS WHILE YOU ARE WAITING FOR YOUR FOLLOW UP APPOINTMENT; EITHER CONTACT YOUR PRIMARY CARE DOCTOR, THE PHYSICIAN WHOSE NAME AND NUMBER YOU WERE GIVEN, OR RETURN TO THE ED IMMEDIATELY. EVA SCHULTZ APRN Dec 25, 2020 22:15
[2020-12-25] MEDS ORDERED: LIDO:MAALOX 1:1 20 ML SINGLE DOSE. SWSW ONE (22:30)
[2020-12-26] MEDS ORDERED: PENI500T PO (04:42)
[2020-12-26] MEDS ORDERED: FAMO-63 PO (04:51)
== END 2020-12-25 22:35 | disposition home or self-care (01) ==
LOC: ER 21:56
DX: R10.13 Epigastric pain (principal); F41.9 Anxiety disorder, unspecified; F32.9 Major depressive disorder, single episode, unspecified; K21.9 Gastro-esophageal reflux disease without esophagitis; F20.9 Schizophrenia, unspecified; F12.90 Cannabis use, unspecified, uncomplicated; F17.200 Nicotine dependence, unspecified, uncomplicated; Z98.890 Other specified postprocedural states; Z59.0 Homelessness
CPT/HCPCS: 99282

== ENCOUNTER 2020-12-26 03:43 | Emergency (ER) | payer MEDICAID ==
[~2020-12-26] VITALS: Ht 170.2 cm; Wt 104.0 kg
[2020-12-26 04:12] VITALS: BP 126/73
[2020-12-26] MEDS ORDERED: PENI500T PO (04:42)
--- NOTE | 2020-12-26 04:44 | PHYS DOC ---
Past Medical History Past Medical History: Anxiety, Depression, GERD, Schizophrenia, Other Additional Past Medical Histor: drug abuse Past Surgical History: Other Additional Past Surgical Histo: EGD W/REMOVAL OF FOREIGN BODY Smoking Status: Current Every Day Smoker Alcohol Use: None Drug Use: Marijuana, Other Adult General Chief Complaint Chief Complaint: SORE THROAT HPI HPI Patient is a 40 year old male presenting the emergency department returning for new onset of sore throat. Patient states that over the last 24 hours he developed worsening sensation in throat primarily when he swallows. However over the last 3 hours states it has increased in severity. Denies any cough, fever, chills, nausea or vomiting. Denies any history of similar symptoms.] Review of Systems Review of Systems Constitutional: Denies fever or chills [] Eyes: Denies change in visual acuity, redness, or eye pain [] HENT: Denies nasal congestion or sore throat [] Respiratory: Denies cough or shortness of breath [] Cardiovascular: No additional information not addressed in HPI [] GI: Denies abdominal pain, nausea, vomiting, bloody stools or diarrhea [] : Denies dysuria or hematuria [] Musculoskeletal: Denies back pain or joint pain [] Integument: Denies rash or skin lesions [] Neurologic: Denies headache, focal weakness or sensory changes [] Endocrine: Denies polyuria or polydipsia [] All other systems were reviewed and found to be within normal limits, except as documented in this note. Allergies Allergies Allergies Coded Allergies Type Severity Reaction Last Updated Verified No Known Drug Allergies 02/14/17 No Physical Exam Physical Exam Constitutional: Well developed, well nourished, no acute distress, non-toxic appearance. [] HENT: Normocephalic, atraumatic, bilateral external ears normal, oropharynx moist, no moderate tonsillar adenopathy, nose normal. [] Eyes: PERRLA, EOMI, conjunctiva normal, no discharge. [] Neck: Normal range of motion, no tenderness, supple, no stridor. [] Cardiovascular:Heart rate regular rhythm, no murmur [] Lungs & Thorax: Bilateral breath sounds clear to auscultation [] Abdomen: Bowel sounds normal, soft, no tenderness, no masses, no pulsatile masses. [] Skin: Warm, dry, no erythema, no rash. [] Back: No tenderness, no CVA tenderness. [] Extremities: No tenderness, no cyanosis, no clubbing, ROM intact, no edema. [] Neurologic: Alert and oriented X 3, normal motor function, normal sensory function, no focal deficits noted. [] Psychologic: Affect normal, judgement normal, mood normal. [] Current Patient Data Vital Signs Vital Signs Date Time Temp Pulse Resp B/P (MAP) Pulse Ox O2 Delivery O2 Flow Rate FiO2 12/26/20 04:12 97.7 94 16 126/73 (90) 96 Room Air 97.7 EKG EKG [] Radiology/Procedures Radiology/Procedures [] Course & Med Decision Making Course & Med Decision Making Pertinent Labs and Imaging studies reviewed. (See chart for details) 40-year-old male presenting to emergency department for new onset of sore throat. Strep is positive. At this time will treat with a course of antibiotics. Dragon Disclaimer Dragon Disclaimer This electronic medical record was generated, in whole or in part, using a voice recognition dictation system. Departure Departure Impression: Primary Impression: Strep pharyngitis Disposition: 01 DC HOME SELF CARE/HOMELESS Condition: GOOD Referrals: NO PCP (PCP) Patient Instructions: Strep Throat Additional Instructions: EMERGENCY DEPARTMENT GENERAL DISCHARGE INSTRUCTIONS Thank you for coming to [facility] Emergency Department (ED) today and trusting us with you care. We trust that you had a positive experience in our Emergency Department. If you wish to speak to the department management, you may call the Director at [phone]. YOUR FOLLOW UP INSTRUCTIONS ARE FOLLOWS: 1. Do you have a private Doctor? If you do not have a private doctor, please ask for a resource list of physicians or clinics that may be able to assist you with follow up care. 2. The Emergency Physicain has interpreted your x-rays. The X-Ray specialist will also review them. If there is a change in the findings, you will be notified in 48 hours when at all possible. 3. A lab test or culture has been done, your results will be reviewed and you will be notified if you need a change in treatment. ADDITIONAL INSTRUCTIONS AND INFORMATION: 1. Your care today has been supervised by a physician who is specially trained in emergency care. Many problems require more than one evaluation for a complete diagnosis and treatment. We recommend that you schedule your follow up appointment as recommended to ensure complete treatment of you illness or injury. If you are unable to obtain follow up care and continue to have a problem, or if your condition worsens, we recommend that you return to the ED. 2. We are not able to safely determine your condition over the phone nor are we able to give sound medical advice over the phone. For these safety reasons, if you call for medical advice we will ask you to come to the ED for further evaluation. 3. If you have any questions regarding these discharge instructions please call the ED at [phone]. SAFETY INFORMATION: In the interest of safety, wellness, and injury prevention; we encourage you to wear your sealbelt, if you smoke; quite smoking, and we encourage family to use a protective helmet for bicycling and other sporting events that present an increased risk for head injury. IF YOUR SYMPTOMS WORSEN OR NEW SYMPTOMS DEVELOP, OR YOU HAVE CONCERNS ABOUT YOUR CONDITION; OR IF YOUR CONDITION WORSENS WHILE YOU ARE WAITING FOR YOUR FOLLOW UP APPOINTMENT; EITHER CONTACT YOUR PRIMARY CARE DOCTOR, THE PHYSICIAN WHOSE NAME AND NUMBER YOU WERE GIVEN, OR RETURN TO THE ED IMMEDIATELY. Scripts Penicillin V Potassium (PENICILLIN V POTASSIUM) 500 Mg Tablet 1 TAB PO Q12HR for 10 Days, #20 TAB Prov: PATY KUMAR MD 12/26/20 PATY KUMAR MD Dec 26, 2020 04:44
[2020-12-26] MEDS ORDERED: FAMO-63 PO (04:51)
[2020-12-26] MEDS ORDERED: FAMOTIDINE 20 MG TABLET. PO ONE (05:30)
== END 2020-12-26 05:09 | disposition home or self-care (01) ==
LOC: ER 03:43
DX: J02.0 Streptococcal pharyngitis (principal); B95.4 Other streptococcus as the cause of diseases classified elsewhere; R20.2 Paresthesia of skin; F41.9 Anxiety disorder, unspecified; F32.9 Major depressive disorder, single episode, unspecified; K21.9 Gastro-esophageal reflux disease without esophagitis; F20.9 Schizophrenia, unspecified; F17.200 Nicotine dependence, unspecified, uncomplicated; F12.90 Cannabis use, unspecified, uncomplicated; Z98.890 Other specified postprocedural states
CPT/HCPCS: 87880; 99283

== ENCOUNTER 2020-12-27 00:39 | Emergency (ER) | payer MEDICAID ==
[~2020-12-27] VITALS: Ht 177.8 cm; Wt 104.5 kg
[~2020-12-27 00:39] MED LIST changes: +PENI500T PO
--- NOTE | 2020-12-27 01:43 | ED.ADGEN ---
Past Medical History Past Medical History: Depression, Schizophrenia Additional Past Medical Histor: drug abuse Past Surgical History: No Surgical History Additional Past Surgical Histo: EGD W/REMOVAL OF FOREIGN BODY Smoking Status: Current Every Day Smoker Alcohol Use: None Drug Use: Marijuana, Other General Adult EDM: Chief Complaint: COLD EXPOSURE HPI: HPI: Patient is a 40-year-old male with past medical history of schizophrenia who presents to the emergency room due to not having anywhere to go in the cold. He does state that his feet are sore. He states that they have been wet and cold for the last couple of days. Patient has been here 2 other times this week for cold complaints. Review of Systems: Review of Systems: Complete ROS is negative unless otherwise documented in HPI Allergies: Allergies: Allergies Coded Allergies Type Severity Reaction Last Updated Verified No Known Drug Allergies 02/14/17 No Physical Exam: PE: General: Awake, alert, NAD. Well Nourished, well hydrated. Cooperative HEENT: Atraumatic, EOMI, PERRL, airway patent, moist oral mucosa Neck: Supple, trachea midline Respiratory: CTA bilaterally, normal effort, no wheezing/crackles CV: RRR, no murmur, cap refill <2 GI: Soft, nondistended, nontender, no masses MSK: No obvious deformities Skin: Warm, dry, intact. Bilateral feet with wrinkling and cool to the touch. No signs of frostbite. No sloughing of skin Neuro: A&O x3, speech NL, sensory and motor grossly intact, no focal deficits Psych: Flat affect, slow to respond Current Patient Data: Vital Signs: Vital Signs Date Time Temp Pulse Resp B/P (MAP) Pulse Ox O2 Delivery O2 Flow Rate FiO2 12/27/20 00:47 97.5 67 22 129/71 (90) 99 Room Air 97.5 EKG: EKG: [] Heart Score: Risk Factors: Risk Factors: DM, Current or recent (<one month) smoker, HTN, HLP, family history of CAD, obesity. Risk Scores: Score 0 - 3: 2.5% MACE over next 6 weeks - Discharge Home Score 4 - 6: 20.3% MACE over next 6 weeks - Admit for Clinical Observation Score 7 - 10: 72.7% MACE over next 6 weeks - Early Invasive Strategies Radiology/Procedures: Radiology/Procedures: [] Course & Med Decision Making: Course & Med Decision Making Pertinent Labs and Imaging studies reviewed. (See chart for details) Patient is a 40-year-old male who presents to the emergency room with no place to go in the cold. His mother states that he she will allow him to stay with her. Patient states feet do appear that they have been wet and cold for quite some time. He does not have frostbite. At this time he does not yet have trench foot but I have discussed with him that this is a possibility in the future if he does not keep his feet warm and dry. Patient's test results and vitals while in the ED were fully reviewed and discussed with the patient. Patient is stable and at this time does not need admission to the hospital. We have discussed strict return precautions and the importance of following up with their Primary Care Physician. Patient stated understanding and was given an opportunity to ask any questions. Patient is in agreement with plan. [place] Disclaimer: Sharmin Disclaimer: This electronic medical record was generated, in whole or in part, using a voice recognition dictation system. Departure Departure Impression: Primary Impression: Homeless single person Disposition: 01 DC HOME SELF CARE/HOMELESS Condition: STABLE Referrals: NO PCP (PCP) Patient Instructions: Frostbite, [id number] Additional Instructions: It is important to keep your feet warm and dry to prevent any damage to them. LITZY OJEDA MD Dec 27, 2020 01:43
[2020-12-27 02:15] VITALS: BP 125/86
== END 2020-12-27 02:34 | disposition home or self-care (01) ==
LOC: ER 00:39
DX: M79.672 Pain in left foot (principal); Z59.0 Homelessness; M79.671 Pain in right foot; F20.9 Schizophrenia, unspecified; F17.200 Nicotine dependence, unspecified, uncomplicated
CPT/HCPCS: 99283

== ENCOUNTER 2021-01-06 22:14 | Emergency (ER) | payer MEDICAID ==
[~2021-01-06] VITALS: Ht 172.7 cm; Wt 90.1 kg
--- NOTE | 2021-01-06 22:55 | PHYS DOC ---
Past Medical History Past Medical History: Depression, Schizophrenia Additional Past Medical Histor: drug abuse Past Surgical History: No Surgical History Additional Past Surgical Histo: EGD W/REMOVAL OF FOREIGN BODY Smoking Status: Current Every Day Smoker Alcohol Use: None Drug Use: Marijuana, Other General Adult EDM: Chief Complaint: GI PROBLEM HPI: HPI: Patient is a 40 year old male with a past medical history of schizophrenia who presents for chest pain. He states that around 2 hours and 30 minutes ago he woke up with the pain in his lower chest. He describes his pain as a "muscle squeeze". He states that this pain does not move anywhere else. He states that nothing makes his pain better or worse. He has had this pain in the past and he states he was diagnosed with schizophrenia at that time. He has never had acid reflux before but during interview he did ask for medication to help for acid in his stomach. He denies headache, fever, cough, shortness of breath, palpitations, abdominal pain, constipation, diarrhea, numbness, tingling, weakness. Review of Systems: Review of Systems: Constitutional: Denies fever or chills. [] Eyes: Denies change in visual acuity. [] HENT: Denies nasal congestion or sore throat. [] Respiratory: Denies cough or shortness of breath. [] Cardiovascular: Positive chest pain denies edema. [] GI: Denies abdominal pain, nausea, vomiting, bloody stools or diarrhea. [] : Denies dysuria. [] Musculoskeletal: Denies back pain or joint pain. [] Integument: Denies rash. [] Neurologic: Denies headache, focal weakness or sensory changes. [] Endocrine: Denies polyuria or polydipsia. [] Lymphatic: Denies swollen glands. [] Psychiatric: Denies depression or anxiety. [] Heart Score: HEART Score for Chest Pain: HEART Score for Chest Pain Response (Comments) Value History Slighlty/Non-Suspicious 0 ECG Normal 0 Age < 45 0 Risk Factors No Risk Factors 0 Troponin < Normal Limit 0 Total 0 Risk Factors: Risk Factors: DM, Current or recent (<one month) smoker, HTN, HLP, family history of CAD, obesity. Risk Scores: Score 0 - 3: 2.5% MACE over next 6 weeks - Discharge Home Score 4 - 6: 20.3% MACE over next 6 weeks - Admit for Clinical Observation Score 7 - 10: 72.7% MACE over next 6 weeks - Early Invasive Strategies Current Medications: Current Medications Medications (Trade) Dose Ordered Sig/Hayde Start Time Stop Time Status Last Admin Dose Admin Multi-Ingredient Mouthwash/Gargle (Gi Cocktail) 20 ml 1X ONCE 01/06/21 23:00 01/06/21 23:01 01/06/21 22:45 20 ML Allergies: Allergies: Allergies Coded Allergies Type Severity Reaction Last Updated Verified No Known Drug Allergies 02/14/17 No Physical Exam: PE: Constitutional: Well developed, well nourished, no acute distress, non-toxic appearance. [] HENT: Normocephalic, atraumatic, bilateral external ears normal, oropharynx moist, no oral exudates, nose normal. [] Eyes: PERRLA, EOMI, conjunctiva normal, no discharge. [] Neck: Normal range of motion, no tenderness, supple, no stridor. [] Cardiovascular:Heart rate regular rhythm, no murmur [] Lungs & Thorax: Bilateral breath sounds clear to auscultation [] Abdomen: Bowel sounds normal, soft, tenderness to palpation over epigastric region, no rebound tenderness, no masses, no pulsatile masses. [] Skin: Warm, dry, no erythema, no rash. [] Back: No tenderness, no CVA tenderness. [] Extremities: No tenderness, no cyanosis, no clubbing, ROM intact, no edema. [] Neurologic: Alert and oriented X 3, normal motor function, normal sensory function, no focal deficits noted. [] Psychologic: Affect normal, judgement normal, mood normal. [] EKG: EKG: EKG performed at 2336 heart rate [address] elevation no ST depression no acute NC [] Radiology/Procedures: Radiology/Procedures: [] Impression: TECHNIQUE: Frontal view of the chest Comparisons: 12/03/2019 FINDINGS: The cardiomediastinal silhouette and pulmonary vessels are within normal limits. Mild hazy airspace disease at the lung bases. No pleural effusion. IMPRESSION: Findings which may relate to mild pulmonary edema. Electronically signed by: Brittny Mccarty MD (01/06/2021 11:31 PM) [facility] Course & Med Decision Making: Course & Med Decision Making Pertinent Labs and Imaging studies reviewed. (See chart for details) [] Patient was evaluated for chief complaint. Work-up consisted of radiologic imaging and EKG. All results reviewed. Patient is requesting a GI cocktail something for his acid reflux. Treatment included GI cocktail and Pepcid. Posttreatment patient was then requesting for an albuterol inhaler patient states he wanted to be discharged with an albuterol inhaler or prescription. Dragon Disclaimer: Dragon Disclaimer: This electronic medical record was generated, in whole or in part, using a voice recognition dictation system. Departure Departure Impression: Primary Impression: Epigastric discomfort Additional Impression: Medication refill Disposition: DC HOME SELF CARE/HOMELESS Condition: STABLE Referrals: NO PCP (PCP) Patient Instructions: Abdominal Pain (Nonspecific), Diet for Gastroesophageal Reflux Disease, Adult Scripts Famotidine (PEPCID) 40 Mg Tablet 40 MG PO HS, #30 TAB Prov: JENNIFER MCGRAW DO 01/07/21 Albuterol Sulfate (Proventil Hfa) 6.7 Gm Hfa.aer.ad 1 PUFF INH PRN Q6HRS PRN for SHORTNESS OF BREATH, #1 EACH Prov: JENNIFER MCGRAW DO 01/07/21 JENNIFER MCGRAW DO Jan 06, 2021 22:55
[2021-01-06] MEDS ORDERED: LIDO:MAALOX 1:1 20 ML SINGLE DOSE. SWSW ONE (23:00)
[2021-01-06] MEDS ORDERED: FAMOTIDINE 20 MG TABLET. PO ONE (23:30)
--- NOTE | 2021-01-06 23:33 | RAD ---
Exam: Chest one view INDICATION: Chest pain TECHNIQUE: Frontal view of the chest Comparisons: 12/03/2019 FINDINGS: The cardiomediastinal silhouette and pulmonary vessels are within normal limits. Mild hazy airspace disease at the lung bases. No pleural effusion. IMPRESSION: Findings which may relate to mild pulmonary edema. Electronically signed by: Brittny Mccarty MD (01/06/2021 11:31 PM) [facility]
[2021-01-07] MEDS ORDERED: PROVENTIL HFA6.7 G2 INH (00:10)
[2021-01-07] MEDS ORDERED: FAMO40TA57 PO (00:10)
[2021-01-07 00:19] VITALS: BP 152/82
--- NOTE | 2021-01-07 00:36 | EKG ---
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
== END 2021-01-07 00:22 | disposition home or self-care (01) ==
LOC: ER 22:14
DX: R10.13 Epigastric pain (principal); R07.89 Other chest pain; F32.9 Major depressive disorder, single episode, unspecified; F20.9 Schizophrenia, unspecified; F17.200 Nicotine dependence, unspecified, uncomplicated; F12.90 Cannabis use, unspecified, uncomplicated; Z98.890 Other specified postprocedural states
CPT/HCPCS: 71045; 93005; 99283

== ENCOUNTER 2021-01-11 01:31 | Emergency (ER) | payer MEDICAID ==
[~2021-01-11] VITALS: Ht 172.7 cm; Wt 105.5 kg
[~2021-01-11 01:31] MED LIST changes: +FAMO40TA57 PO; +PROVENTIL HFA6.7 G2 INH
[2021-01-11] MEDS ORDERED: ONDANSETRON ODT 4 MG TAB.RAPDIS. PO ONE (01:45)
[2021-01-11] MEDS ORDERED: LIDO:MAALOX 1:1 20 ML SINGLE DOSE. SWSW ONE (01:45)
--- NOTE | 2021-01-11 01:48 | PHYS DOC ---
Past Medical History Past Medical History: Depression, Schizophrenia Additional Past Medical Histor: drug abuse Past Surgical History: No Surgical History Additional Past Surgical Histo: EGD W/REMOVAL OF FOREIGN BODY Smoking Status: Current Every Day Smoker Alcohol Use: None Drug Use: Marijuana, Other General Adult EDM: Chief Complaint: ABDOMINAL PAIN HPI: HPI: 40-year-old male who has a history of schizophrenia, who presents for evaluation of nausea. He reports 1 single episode of emesis. No significant abdominal p ain or flank pain. No diarrhea, dysuria. No prior abdominal surgeries. He was seen for similar symptoms about 1 week ago. Review of Systems: Review of Systems: Gen: No fever, chills. CV: No CP, palpitations. Resp. No SOB, cough. GI: No abd pain. Reports N/V. : No dysuria, hematuria. Neuro: No BRUNNER, dizziness, weakness. Remainder of systems reviewed and negative unless otherwise specified. Heart Score: Risk Factors: Risk Factors: DM, Current or recent (<one month) smoker, HTN, HLP, family history of CAD, obesity. Risk Scores: Score 0 - 3: 2.5% MACE over next 6 weeks - Discharge Home Score 4 - 6: 20.3% MACE over next 6 weeks - Admit for Clinical Observation Score 7 - 10: 72.7% MACE over next 6 weeks - Early Invasive Strategies Allergies: Allergies: Allergies Coded Allergies Type Severity Reaction Last Updated Verified No Known Drug Allergies 02/14/17 No Physical Exam: PE: Gen: NAD. Well nourished. Head: NC/AT. Eyes: No scleral icterus. No conjunctival injection. ENT: MMM. Neck: Supple. CV: RRR. Peripheral pulses intact. Resp: CTAB. Abd: Soft. NT. ND. MSK: No peripheral cyanosis. No edema. Neuro: Awake and alert. Skin. Warm. Dry. Psych: Flat affect. EKG: EKG: [] Radiology/Procedures: Radiology/Procedures: [] Course & Med Decision Making: Course & Med Decision Making Pertinent Labs and Imaging studies reviewed. (See chart for details) In summary, 40M p/w a single episode of N/V prior to arrival, with no abd pain. Seen previously for same. Prior to GI cocktail and zofran, patient was requesting something to eat. Benign abd exam. Patient now watching TV comfortably. Do not suspect acute emergent pathology. Do not feel that CT imaging would be high yield at this time. Will DC home with Rx zofran. Return precautions given. Sharmin Disclaimer: Sharmin Disclaimer: This electronic medical record was generated, in whole or in part, using a voice recognition dictation system. Departure Departure Impression: Primary Impression: Nausea & vomiting Disposition: DC HOME SELF CARE/HOMELESS Condition: STABLE Referrals: NO PCP (PCP) Patient Instructions: Nausea and Vomiting, [id number] Scripts Ondansetron (ONDANSETRON ODT) 4 Mg Tab.rapdis 1 TAB PO PRN Q6-8HRS, #16 TAB Prov: ELSIE SEE DO 01/11/21 ELSIE SEE DO Jan 11, 2021 01:48
[2021-01-11 02:29] VITALS: BP 150/66
[2021-01-11] MEDS ORDERED: ONDA4TAB12 PO (02:32)
== END 2021-01-11 02:56 | disposition home or self-care (01) ==
LOC: ER 01:31
DX: R11.2 Nausea with vomiting, unspecified (principal); F20.9 Schizophrenia, unspecified; F17.200 Nicotine dependence, unspecified, uncomplicated
CPT/HCPCS: 99283

== ENCOUNTER 2021-01-14 02:58 | Emergency (ER) | payer MEDICAID ==
[~2021-01-14] VITALS: Ht 172.7 cm; Wt 90.9 kg
[~2021-01-14 02:58] MED LIST changes: +ONDA4TAB12 PO
[2021-01-14] MEDS ORDERED: ACETAMINOPHEN 500 MG TABLET PO ONE (03:15)
[2021-01-14] MEDS ORDERED: ONDANSETRON ODT 4 MG TAB.RAPDIS. PO ONE (03:15)
--- NOTE | 2021-01-14 03:21 | PHYS DOC ---
Past Medical History Past Medical History: Depression, GERD, Schizophrenia Additional Past Medical Histor: drug abuse Past Surgical History: No Surgical History Additional Past Surgical Histo: EGD W/REMOVAL OF FOREIGN BODY Smoking Status: Current Every Day Smoker Alcohol Use: None Drug Use: Marijuana, Other Adult General Chief Complaint Chief Complaint: MULTIPLE COMPLAINTS [facility] HPI Patient is a 40 year old male with a known past history of schizophrenia with multiple presentations to emergency department for moderate nausea likely secondary to gastritis now presenting emergency department with the same. Patient is complaining of mild right-sided headache which has been fluctuating intensity for the last 24 hours as well as mild mid nausea and abdominal discomfort. Denies any abdominal pain. No significant tenderness on exam. Denies any recent fever, chills, vomiting, chest pain or shortness of breath Review of Systems Review of Systems Constitutional: Denies fever or chills [] Eyes: Denies change in visual acuity, redness, or eye pain [] HENT: Denies nasal congestion or sore throat [] Respiratory: Denies cough or shortness of breath [] Cardiovascular: No additional information not addressed in HPI [] GI: Denies abdominal pain, nausea, vomiting, bloody stools or diarrhea [] : Denies dysuria or hematuria [] Musculoskeletal: Denies back pain or joint pain [] Integument: Denies rash or skin lesions [] Neurologic: Denies headache, focal weakness or sensory changes [] Endocrine: Denies polyuria or polydipsia [] All other systems were reviewed and found to be within normal limits, except as documented in this note. Current Medications Current Medications Current Medications Medications (Trade) Dose Ordered Sig/[facility] Start Time Stop Time Status Last Admin Dose Admin Acetaminophen (Tylenol) 1,000 mg 1X ONCE 01/14/21 03:15 01/14/21 03:17 DC 01/14/21 03:11 1,000 MG Ondansetron HCl (Zofran Odt) 4 mg 1X ONCE 01/14/21 03:15 01/14/21 03:17 DC 01/14/21 03:11 4 MG Allergies Allergies Allergies Coded Allergies Type Severity Reaction Last Updated Verified No Known Drug Allergies 02/14/17 No Physical Exam Physical Exam Constitutional: Well developed, well nourished, no acute distress, non-toxic appearance. [] HENT: Normocephalic, atraumatic, bilateral external ears normal, oropharynx moist, no oral exudates, nose normal. [] Eyes: PERRLA, EOMI, conjunctiva normal, no discharge. [] Neck: Normal range of motion, no tenderness, supple, no stridor. [] Cardiovascular:Heart rate regular rhythm, no murmur [] Lungs & Thorax: Bilateral breath sounds clear to auscultation [] Abdomen: Bowel sounds normal, soft, no tenderness, no masses, no pulsatile masses. [] Skin: Warm, dry, no erythema, no rash. [] Back: No tenderness, no CVA tenderness. [] Extremities: No tenderness, no cyanosis, no clubbing, ROM intact, no edema. [] Neurologic: Alert and oriented X 3, normal motor function, normal sensory function, no focal deficits noted. [] Psychologic: Affect normal, judgement normal, mood normal. [] Current Patient Data Vital Signs Vital Signs Date Time Temp Pulse Resp B/P (MAP) Pulse Ox O2 Delivery O2 Flow Rate FiO2 01/14/21 03:05 98.4 88 16 126/65 (85) 99 Room Air 98.4 EKG EKG [] Radiology/Procedures Radiology/Procedures [] Course & Med Decision Making Course & Med Decision Making Pertinent Labs and Imaging studies reviewed. (See chart for details) 40M presenting with nonspecific nausea and headache. No significant findings on physical exam. Patient appears well and is at his baseline. Will treat symptomatically and discharged home Dragon Disclaimer Dragon Disclaimer This electronic medical record was generated, in whole or in part, using a voice recognition dictation system. Departure Departure Impression: Primary Impression: Gastritis Disposition: 01 DC HOME SELF CARE/HOMELESS Condition: GOOD Referrals: NO PCP (PCP) Patient Instructions: Gastritis, Adult Additional Instructions: EMERGENCY DEPARTMENT GENERAL DISCHARGE INSTRUCTIONS Thank you for coming to [facility] Emergency Department (ED) [facility] and trusting us with you care. We trust that you had a positive experience in our Emergency Department. If you wish to speak to the department management, you may call the Director at [phone]. YOUR FOLLOW UP INSTRUCTIONS ARE FOLLOWS: 1. Do you have a private Doctor? If you do not have a private doctor, please ask for a resource list of physicians or clinics that may be able to assist you with follow up care. 2. The Emergency Physicain has interpreted your x-rays. The X-Ray specialist will also review them. If there is a change in the findings, you will be notified in 48 hours when at all possible. 3. A lab test or culture has been done, your results will be reviewed and you will be notified if you need a change in treatment. ADDITIONAL INSTRUCTIONS AND INFORMATION: 1. Your care today has been supervised by a physician who is specially trained in emergency care. Many problems require more than one evaluation for a complete diagnosis and treatment. We recommend that you schedule your follow up appointment as recommended to ensure complete treatment of you illness or injury. If you are unable to obtain follow up care and continue to have a problem, or if your condition worsens, we recommend that you return to the ED. 2. We are not able to safely determine your condition over the phone nor are we able to give sound medical advice over the phone. For these safety reasons, if you call for medical advice we will ask you to come to the ED for further evaluation. 3. If you have any questions regarding these discharge instructions please call the ED at [phone]. SAFETY INFORMATION: In the interest of safety, wellness, and injury prevention; we encourage you to wear your sealbelt, if you smoke; quite smoking, and we encourage family to use a protective helmet for bicycling and other sporting events that present an increased risk for head injury. IF YOUR SYMPTOMS WORSEN OR NEW SYMPTOMS DEVELOP, OR YOU HAVE CONCERNS ABOUT YOUR CONDITION; OR IF YOUR CONDITION WORSENS WHILE YOU ARE WAITING FOR YOUR FOLLOW UP APPOINTMENT; EITHER CONTACT YOUR PRIMARY CARE DOCTOR, THE PHYSICIAN WHOSE NAME AND NUMBER YOU WERE GIVEN, OR RETURN TO THE ED IMMEDIATELY. PATY KUMAR MD Jan 14, 2021 03:21
[2021-01-14 03:43] VITALS: BP 113/58
== END 2021-01-14 03:44 | disposition home or self-care (01) ==
LOC: ER 02:58
DX: K29.70 Gastritis, unspecified, without bleeding (principal); R51.9 Headache, unspecified; K21.9 Gastro-esophageal reflux disease without esophagitis; F20.9 Schizophrenia, unspecified; F32.9 Major depressive disorder, single episode, unspecified; F17.200 Nicotine dependence, unspecified, uncomplicated
CPT/HCPCS: 99283

== ENCOUNTER 2021-02-14 01:59 | Emergency (ER) | payer MEDICAID ==
[~2021-02-14] VITALS: Ht 170.2 cm; Wt 77.0 kg
[2021-02-14 02:00] VITALS: BP 140/76
[2021-02-14] MEDS ORDERED: FAMO-63 PO (03:16)
--- NOTE | 2021-02-14 03:17 | PHYS DOC ---
Past Medical History Past Medical History: Depression, GERD, Schizophrenia Additional Past Medical Histor: drug abuse Past Surgical History: Other Additional Past Surgical Histo: EGD W/REMOVAL OF FOREIGN BODY Smoking Status: Current Every Day Smoker Alcohol Use: None Drug Use: Marijuana, Other Social History Narrative: hx of PCP use General Adult EDM: Chief Complaint: PSYCH EVALUATION HPI: HPI: 40-year-old AA male past medical history significant for schizophrenia, depression and GERD, presents the ED with complaints of " I want a GI cocktail and cream medicine for my legs because they rub." Reports his "stomach pain" cau ses "hallucinations, it's a schizophrenia thing." Reports compliance for tramadol and wellbutrin. Denies any head trauma or drug use. Told rn he's having "hallucinations that his family wants to kill him," but cannot provide specific details. States he feels safe at home. Also requests a "psych evaluation." Review of Systems: Review of Systems: Constitutional: Denies fever or chills. [] Eyes: Denies change in visual acuity. [] HENT: Denies nasal congestion or sore throat. [] Respiratory: Denies cough or shortness of breath. [] Cardiovascular: Denies chest pain or edema. [] GI: Denies abdominal pain, nausea, vomiting, bloody stools or diarrhea. [] : Denies dysuria. [] Musculoskeletal: Denies back pain or joint pain. [] Integument: Denies rash. [] Neurologic: Denies headache, focal weakness or sensory changes. [] Endocrine: Denies polyuria or polydipsia. [] Lymphatic: Denies swollen glands. [] Psychiatric: Denies depression or anxiety, denies SI or HI Heart Score: C/O Chest Pain: No Risk Factors: Risk Factors: DM, Current or recent (<one month) smoker, HTN, HLP, family history of CAD, obesity. Risk Scores: Score 0 - 3: 2.5% MACE over next 6 weeks - Discharge Home Score 4 - 6: 20.3% MACE over next 6 weeks - Admit for Clinical Observation Score 7 - 10: 72.7% MACE over next 6 weeks - Early Invasive Strategies Allergies: Allergies: Allergies Coded Allergies Type Severity Reaction Last Updated Verified No Known Drug Allergies 02/14/17 No Physical Exam: PE: Constitutional: Well developed, well nourished, no acute distress, non-toxic appearance. HENT: Normocephalic, atraumatic, Eyes: EOMI, conjunctiva normal, no discharge. Neck: Normal range of motion, supple, Cardiovascular: S1/2 present, regular rhythm Lungs & Thorax: Speaking in full sentences, bilateral equal chest rise, no tachypnea or increased work of breathing Abdomen: soft, no tenderness, Skin: Warm, dry, no erythema, no rash. [] Back: No tenderness, no CVA tenderness. [] Extremities: No tenderness, no cyanosis, no lower extremity edema Neurologic: Alert and oriented X 3, normal motor function, normal sensory function, no focal deficits noted. [] Psychologic: Affect normal, judgement normal, mood normal. [] Current Patient Data: Vital Signs: Vital Signs Date Time Temp Pulse Resp B/P (MAP) Pulse Ox O2 Delivery O2 Flow Rate FiO2 02/14/21 02:00 98.1 87 18 140/76 (97) 97 98.1 EKG: EKG: [] Radiology/Procedures: Radiology/Procedures: [] Course & Med Decision Making: Course & Med Decision Making Pertinent Labs and Imaging studies reviewed. (See chart for details) Concern for ED presentation with multiple complaints. Patient with decision- making capacity, hemodynamically stable, no substance intoxication. Denies any HI or SI. Is no active hallucinations or psychosis. Has a safe place to return home to. Will discharge home with strict ED return precautions were given for trauma, head injury, SI or HI, hallucinations or drug use. I discouraged frequent ED visits for GI cocktails and recommended [id number] medication, will prescribe Pepcid. Encouraged urgent outpatient follow-up with PMD, schizophrenia and GI. Life-threatening processes were considered but are low suspicion at this time, given history, physical exam and ED workup. Pt was educated on all prescription medications and adverse effects. All patient's questions were answered and pt was stable at time of discharge. Life/limb-threatening differential includes but is not limited to, end organ damage/sepsis, trauma/abuse/neglect, neurologic deficit, alcohol/drug ingestion, toxidrome, suicidal/homicidal ideations plans or attempts, psychosis or mental illness resulting in self neglect and inability to care for self. I spoken with the patient and her caregivers. I explained the patient's condition, diagnoses and treatment plan based on the information available to me at this time. I have answered the patient and her caregiver's questions and addressed any concerns. The patient and her caregivers have a good understanding of patient's diagnosis, condition and treatment plan as can be expected at this point. Vital signs have been stable. Patient's condition is stable and appropriate for discharge from the emergency department. Patient will pursue further outpatient evaluation with primary care physician or other designated or consulting physician as outlined in the discharge instructions. The patient and/or caregivers are agreeable to this plan of care and follow-up instructions have been explained in detail. The patient and/or caregivers have received these instructions in written form and have expressed an understanding of the discharge instructions. The patient and/or caregivers are aware that any significant change of condition or worsening of symptoms should prompt immediate return to this or the closest emergency department or call to [facility]. Sharmin Disclaimer: Sharmin Disclaimer: This electronic medical record was generated, in whole or in part, using a voice recognition dictation system. Departure Departure Impression: Primary Impression: Schizophrenia Additional Impression: Encounter for medication refill Disposition: 01 DC HOME SELF CARE/HOMELESS Condition: STABLE Referrals: NO PCP (PCP) With your primary care physician in 24 to 48 hours FOLLOW UP WITH FAMILY MEDICINE: Family Medicine Address: [address] [address] Patient Instructions: Diet for Gastroesophageal Reflux Disease, Adult, Schizophrenia Additional Instructions: FOLLOW UP WITH PSYCHIATRY: Dr. Pb [facility] [address], [place] [address] FOLLOW UP WITH GASTROENTEROLOGY: Gastroenterology [facility] Address: [address] [place] [address] EMERGENCY DEPARTMENT GENERAL DISCHARGE INSTRUCTIONS Thank you for coming to [facility] (ED) today and trusting us with you care. We trust that you had a positive experience in our Emergency Department. If you wish to speak to the department management, you may call the Director at [phone]. YOUR FOLLOW UP INSTRUCTIONS ARE FOLLOWS: 1. Do you have a private Doctor? If you do not have a private doctor, please ask for a resource list of physicians or clinics that may be able to assist you with follow up care. 2. The Emergency Physicain has interpreted your x-rays. The X-Ray specialist will also review them. If there is a change in the findings, you will be notified in 48 hours when at all possible. 3. A lab test or culture has been done, your results will be reviewed and you will be notified if you need a change in treatment. ADDITIONAL INSTRUCTIONS AND INFORMATION: 1. Your care today has been supervised by a physician who is specially trained in emergency care. Many problems require more than one evaluation for a complete diagnosis and treatment. We recommend that you schedule your follow up appointment as recommended to ensure complete treatment of you illness or injury. If you are unable to obtain follow up care and continue to have a problem, or if your condition worsens, we recommend that you return to the ED. 2. We are not able to safely determine your condition over the phone nor are we able to give sound medical advice over the phone. For these safety reasons, if you call for medical advice we will ask you to come to the ED for further evaluation. 3. If you have any questions regarding these discharge instructions please call the ED at [phone]. SAFETY INFORMATION: In the interest of safety, wellness, and injury prevention; we encourage you to wear your sealbelt, if you smoke; quite smoking, and we encourage family to use a protective helmet for bicycling and other sporting events that present an increased risk for head injury. IF YOUR SYMPTOMS WORSEN OR NEW SYMPTOMS DEVELOP, OR YOU HAVE CONCERNS ABOUT YOUR CONDITION; OR IF YOUR CONDITION WORSENS WHILE YOU ARE WAITING FOR YOUR FOLLOW UP APPOI NTMENT; EITHER CONTACT YOUR PRIMARY CARE DOCTOR, THE PHYSICIAN WHOSE NAME AND NUMBER YOU WERE GIVEN, OR RETURN TO THE ED IMMEDIATELY. Scripts Famotidine (PEPCID) 20 Mg Tablet 20 MG PO BID for 14 Days, #28 TAB Prov: SAIDA ARREAGA DO 02/14/21 SAIDA ARREAGA DO Feb 14, 2021 03:17
== END 2021-02-14 03:31 | disposition home or self-care (01) ==
LOC: ER 01:59
DX: F20.9 Schizophrenia, unspecified (principal); R10.9 Unspecified abdominal pain; Z76.0 Encounter for issue of repeat prescription; K21.9 Gastro-esophageal reflux disease without esophagitis; F32.9 Major depressive disorder, single episode, unspecified; F17.200 Nicotine dependence, unspecified, uncomplicated; F12.90 Cannabis use, unspecified, uncomplicated; Z98.890 Other specified postprocedural states
CPT/HCPCS: 99283

== ENCOUNTER 2021-02-22 03:22 | Emergency (ER) | payer MEDICAID ==
[~2021-02-22] VITALS: Ht 170.2 cm; Wt 101.0 kg
[2021-02-22 04:04] LABS: BASO # 0.1 x10^3/uL (0.0-0.2); BASO % 1 % (0-3); EOS % 0 % (0-3); HEMATOCRIT 40.9 % (39.0-53.0); LYMPH # 2.1 x10^3/uL (1.0-4.8); LYMPH % 22 % (24-48); MEAN CORPUSCULAR HEMOGLOBIN 31 pg (25-35); MEAN CORPUSCULAR HGB CONC 34 g/dL (31-37); MEAN CORPUSCULAR VOLUME 90 fL (79-100); MONO # 0.9 x10^3/uL (0.0-1.1); MONO % 10 % (0-9); NEUT # 6.3 x10^3/uL (1.8-7.7); NEUT % 67 % (31-73); PLATELET COUNT 221 x10^3/uL (140-400); RED BLOOD COUNT 4.57 x10^6/uL (4.30-5.70); RED CELL DISTRIBUTION WIDTH 13.3 % (11.5-14.5); WHITE BLOOD COUNT 9.4 x10^3/uL (4.0-11.0)
--- NOTE | 2021-02-22 04:07 | PHYS DOC ---
Past Medical History Past Medical History: Asthma, Hypertension, Schizophrenia Additional Past Medical Histor: drug abuse (PATY KUMAR MD) Past Surgical History: Other Additional Past Surgical Histo: UNKNOWN (PATY KUMAR MD) Smoking Status: Current Every Day Smoker Alcohol Use: None Drug Use: Marijuana, Other (PATY KUMAR MD) Adult General Chief Complaint Chief Complaint: PSYCH EVALUATION HPI HPI Patient is a 40 year old male with a known past medical history including hypertension, asthma and schizophrenia well-known to the emergency department presents due to concern for an acute psychotic episode. According to EMS police were called and the patient was getting agitated and is living in stating that he felt that people were trying to enter and attack him. Patient is currently complaining of mild abdominal pain but denies any other symptoms. Denies any fever, chills, chest pain or shortness of breath. (PATY KUMAR MD) Review of Systems Review of Systems Constitutional: Denies fever or chills [] Eyes: Denies change in visual acuity, redness, or eye pain [] HENT: Denies nasal congestion or sore throat [] Respiratory: Denies cough or shortness of breath [] Cardiovascular: No additional information not addressed in HPI [] GI: Denies abdominal pain, nausea, vomiting, bloody stools or diarrhea [] : Denies dysuria or hematuria [] Musculoskeletal: Denies back pain or joint pain [] Integument: Denies rash or skin lesions [] Neurologic: Denies headache, focal weakness or sensory changes [] Endocrine: Denies polyuria or polydipsia [] All other systems were reviewed and found to be within normal limits, except as documented in this note. (PATY KUMAR MD) Current Medications Current Medications Current Medications Medications (Trade) Dose Ordered Sig/Hayde Start Time Stop Time Status Last Admin Dose Admin Multi-Ingredient Mouthwash/Gargle (Gi Cocktail) 20 ml PRN QID PRN 02/22/21 07:15 02/22/21 07:31 20 ML (MEMO ORO MD) Allergies Allergies Allergies Coded Allergies Type Severity Reaction Last Updated Verified No Known Drug Allergies 02/14/17 No (MEMO ORO MD) Physical Exam Physical Exam Constitutional: Well developed, well nourished, no acute distress, non-toxic appearance. [] HENT: Normocephalic, atraumatic, bilateral external ears normal, oropharynx moist, no oral exudates, nose normal. [] Eyes: PERRLA, EOMI, conjunctiva normal, no discharge. [] Neck: Normal range of motion, no tenderness, supple, no stridor. [] Cardiovascular:Heart rate regular rhythm, no murmur [] Lungs & Thorax: Bilateral breath sounds clear to auscultation [] Abdomen: Bowel sounds normal, soft, no tenderness, no masses, no pulsatile masses. [] Skin: Warm, dry, no erythema, no rash. [] Back: No tenderness, no CVA tenderness. [] Extremities: No tenderness, no cyanosis, no clubbing, ROM intact, no edema. [] Neurologic: Alert and oriented X 3, normal motor function, normal sensory function, no focal deficits noted. [] Psychologic: Affect normal, judgement normal, mood normal. [] (PATY KUMAR MD) Current Patient Data Vital Signs Vital Signs Date Time Temp Pulse Resp B/P (MAP) Pulse Ox O2 Delivery O2 Flow Rate FiO2 02/22/21 09:35 71 20 169/83 (111) 98 Room Air 02/22/21 03:26 98.3 98.3 (MEMO ORO MD) Lab Values Laboratory Tests Test 02/22/21 03:55 02/22/21 04:17 02/22/21 07:35 White Blood Count 9.4 x10^3/uL (4.0-11.0) Red Blood Count 4.57 x10^6/uL (4.30-5.70) Hemoglobin 14.0 g/dL (13.0-17.5) Hematocrit 40.9 % (39.0-53.0) Mean Corpuscular Volume 90 fL (79-100) Mean Corpuscular Hemoglobin 31 pg (25-35) Mean Corpuscular Hemoglobin Concent 34 g/dL (31-37) Red Cell Distribution Width 13.3 % (11.5-14.5) Platelet Count 221 x10^3/uL (140-400) Neutrophils (%) (Auto) 67 % (31-73) Lymphocytes (%) (Auto) 22 % (24-48) L Monocytes (%) (Auto) 10 % (0-9) H Eosinophils (%) (Auto) 0 % (0-3) Basophils (%) (Auto) 1 % (0-3) Neutrophils # (Auto) 6.3 x10^3/uL (1.8-7.7) Lymphocytes # (Auto) 2.1 x10^3/uL (1.0-4.8) Monocytes # (Auto) 0.9 x10^3/uL (0.0-1.1) Eosinophils # (Auto) 0.0 x10^3/uL (0.0-0.7) Basophils # (Auto) 0.1 x10^3/uL (0.0-0.2) Sodium Level 142 mmol/L (136-145) Potassium Level 3.4 mmol/L (3.5-5.1) L Chloride Level 106 mmol/L (98-107) Carbon Dioxide Level 29 mmol/L (21-32) Anion Gap 7 (6-14) Blood Urea Nitrogen 17 mg/dL (8-26) Creatinine 1.1 mg/dL (0.7-1.3) Estimated GFR (Cockcroft-Gault) 90.6 BUN/Creatinine Ratio 15 (6-20) Glucose Level 131 mg/dL (70-99) H Calcium Level 9.1 mg/dL (8.5-10.1) Magnesium Level 1.9 mg/dL (1.8-2.4) Total Bilirubin 0.2 mg/dL (0.2-1.0) Aspartate Amino Transferase (AST) 50 U/L (15-37) H Alanine Aminotransferase (ALT) 105 U/L (16-63) H Alkaline Phosphatase 94 U/L (46-116) Creatine Kinase 2344 U/L (39-308) H 2681 U/L (39-308) H Total Protein 6.8 g/dL (6.4-8.2) Albumin 4.1 g/dL (3.4-5.0) Albumin/Globulin Ratio 1.5 (1.0-1.7) Urine Opiates Screen Neg (NEG) Urine Methadone Screen Neg (NEG) Urine Barbiturates Neg (NEG) Urine Phencyclidine Screen Neg (NEG) Urine Amphetamine/Methamphetamine Neg (NEG) Urine Benzodiazepines Screen Neg (NEG) Urine Cocaine Screen Neg (NEG) Urine Cannabinoids Screen Pos (NEG) Urine Ethyl Alcohol Neg (NEG) Laboratory Tests 02/22/21 03:55 Laboratory Tests 02/22/21 03:55 (MEMO ORO MD) EKG EKG [] (PATY KUMAR MD) Radiology/Procedures Radiology/Procedures [] (PATY KUMAR MD) Course & Med Decision Making Course & Med Decision Making Pertinent Labs and Imaging studies reviewed. (See chart for details) 40M with what appears to be acute onset of worsening psychotic episode. Patient also complaining of abdominal pain which is patient's system complaint usually presents to the emergency department requesting GI cocktail. At this time will obtain basic labs to make sure there is no other significant underlying etiology and anticipate need for psychiatric evaluation. (PATY KUMAR MD) Course & Med Decision Making 40-year-old male presented with a psychiatric episode overnight and initially was complaining of some chronic abdominal pain. Here we gave him a GI cocktail and his pain resolved and is feeling much better. Our psychiatric evaluation team came to evaluate the patient and obtained placement for him at [facility]. The patient's mother was able to come and will transport him to [facility] for further treatment and care. Patient's blood work was generally unremarkable. He had a mild elevation in his AST and ALT which were minimal. His abdominal exam prior to discharge was soft and nontender without rebound tenderness or guarding. He was able to ambulate on his own accord without any difficulty and without any distress. His CK level was 2344 initially in 2681 at 7 AM. Not significantly increasing. We will have the patient drink lots of water and follow-up with his doctor in a day or 2 for reevaluation and a recheck of that CK level. I wrote this name of the lab test down and explained to his mother that this will need to be retested. He is to return if he has any other concerns. Physical exam: Constitutional no acute distress, resting comfortably in examination room HEENT. Head normocephalic and atraumatic, pupils equal round and reactive to light, extraocular movements intact, no scleral icterus or erythema, mucous membranes moist CV: Palpable pulse with a nl rate and regular rhythm. Respiratory: Not in any respiratory distress breathing comfortably Abdomen: Soft nontender without rebound tenderness or guarding. Negative mcburney's point. Negative Yanes sign. Nondistended. extremities: NVI, nontender with nl rom of the joints. no deformities. Skin: Normal color. no rash. Psych: Makes eye contact, affect congruent with mood. Not suicidal or homicidal. Neuro exam: Alert, speech is normal. Normal cranial nerves, no focal neurologic deficits. Smile symmetric. nl motor. nl sensation. (MEMO ORO MD) Dragon Disclaimer Dragon Disclaimer This electronic medical record was generated, in whole or in part, using a voice recognition dictation system. (PATY KUMAR MD) Departure Departure Impression: Primary Impression: Psychiatric illness Disposition: HOME / SELF CARE / HOMELESS (to [facility]) Condition: STABLE Referrals: NO PCP (PCP) PATY KUMAR MD Feb 22, 2021 04:07 MEMO ORO MD Feb 22, 2021 09:47
[2021-02-22 04:13] LABS: CALCIUM 9.1 mg/dL (8.5-10.1); CREATININE 1.1 mg/dL (0.7-1.3); GFR 90.6; POTASSIUM 3.4 mmol/L (3.5-5.1)
[2021-02-22 04:29] LABS: ALBUMIN 4.1 g/dL (3.4-5.0); ALBUMIN/GLOBULIN RATIO 1.5 (1.0-1.7); MAGNESIUM 1.9 mg/dL (1.8-2.4); TOTAL BILIRUBIN 0.2 mg/dL (0.2-1.0); TOTAL PROTEIN 6.8 g/dL (6.4-8.2)
[2021-02-22 04:33] LABS: BARBITURATES NEG (NEG); BENZODIAZEPINES NEG (NEG); CANNABINOIDS POS (NEG); COCAINE NEG (NEG); METHADONE NEG (NEG); OPIATES NEG (NEG); PHENCYCLIDINE NEG (NEG)
[2021-02-22 04:40] LABS: AMPHETAMINE/METHAMPHETAMINE NEG (NEG)
[2021-02-22] MEDS ORDERED: LIDO:MAALOX 1:1 20 ML SINGLE DOSE. PO PRN (07:15)
[2021-02-22 09:35] VITALS: BP 169/83
== END 2021-02-22 09:51 | disposition home or self-care (01) ==
LOC: ER 03:22
DX: F99 Mental disorder, not otherwise specified (principal); R10.30 Lower abdominal pain, unspecified; J45.909 Unspecified asthma, uncomplicated; I10 Essential (primary) hypertension; F20.9 Schizophrenia, unspecified; F17.200 Nicotine dependence, unspecified, uncomplicated; F12.90 Cannabis use, unspecified, uncomplicated; Z98.890 Other specified postprocedural states
CPT/HCPCS: 36415; 80053; 80307; 82550; 83735; 85025; 99285

== ENCOUNTER 2021-03-03 11:07 | Emergency (ER) | payer MEDICAID ==
[~2021-03-03] VITALS: Ht 167.6 cm; Wt 101.0 kg
[2021-03-03 11:08] VITALS: BP 144/80
[2021-03-03] MEDS ORDERED: FAMO-63 PO (11:23)
--- NOTE | 2021-03-03 11:23 | PHYS DOC ---
Past Medical History Past Medical History: Asthma, Hypertension, Schizophrenia Additional Past Medical Histor: drug abuse Past Surgical History: Other Additional Past Surgical Histo: UNKNOWN Smoking Status: Current Every Day Smoker Alcohol Use: None Drug Use: Marijuana, Other Adult General Chief Complaint Chief Complaint: HEADACHE HPI HPI Patient is a 40 year old male well-known to our emergency department presenting to emergency department complaining of headache and nausea. Patient is routinely here on a regular basis due to complaints of nausea usually has a GI cocktail and discharged home. Patient is now saying that he is having a mild right-sided headache which started earlier yesterday. Denies any nausea, vomiting, chest pain, dizziness or lightheadedness. Review of Systems Review of Systems Constitutional: Denies fever or chills [] Eyes: Denies change in visual acuity, redness, or eye pain [] HENT: Denies nasal congestion or sore throat [] Respiratory: Denies cough or shortness of breath [] Cardiovascular: No additional information not addressed in HPI [] GI: Denies abdominal pain, nausea, vomiting, bloody stools or diarrhea [] : Denies dysuria or hematuria [] Musculoskeletal: Denies back pain or joint pain [] Integument: Denies rash or skin lesions [] Neurologic: Denies headache, focal weakness or sensory changes [] Endocrine: Denies polyuria or polydipsia [] All other systems were reviewed and found to be within normal limits, except as documented in this note. Allergies Allergies Allergies Coded Allergies Type Severity Reaction Last Updated Verified No Known Drug Allergies 02/14/17 No Physical Exam Physical Exam Constitutional: Well developed, well nourished, no acute distress, non-toxic appearance. [] HENT: Normocephalic, atraumatic, bilateral external ears normal, oropharynx moist, no oral exudates, nose normal. [] Eyes: PERRLA, EOMI, conjunctiva normal, no discharge. [] Neck: Normal range of motion, no tenderness, supple, no stridor. [] Cardiovascular:Heart rate regular rhythm, no murmur [] Lungs & Thorax: Bilateral breath sounds clear to auscultation [] Abdomen: Bowel sounds normal, soft, no tenderness, no masses, no pulsatile masses. [] Skin: Warm, dry, no erythema, no rash. [] Back: No tenderness, no CVA tenderness. [] Extremities: No tenderness, no cyanosis, no clubbing, ROM intact, no edema. [] Neurologic: Alert and oriented X 3, normal motor function, normal sensory function, no focal deficits noted. [] Psychologic: Affect normal, judgement normal, mood normal. [] EKG EKG [] Radiology/Procedures Radiology/Procedures [] Course & Med Decision Making Course & Med Decision Making Pertinent Labs and Imaging studies reviewed. (See chart for details) 40M presenting the emergency department complaining of headache. I had an extensive conversation with the patient regarding the importance of him getting his medications filled and taking on a daily basis and implications of abdominal emergency department as well as he did. At this time I will give the patient dose of Tylenol and plan to discharge home with a refill of his prescriptions Dragon Disclaimer Dragon Disclaimer This electronic medical record was generated, in whole or in part, using a voice recognition dictation system. Departure Departure Impression: Primary Impression: Headache Disposition: HOME / SELF CARE / HOMELESS Condition: GOOD Referrals: SERA ANSARI MD Patient Instructions: Headache and Allergies Additional Instructions: EMERGENCY DEPARTMENT GENERAL DISCHARGE INSTRUCTIONS Thank you for coming to [facility] Emergency Department (ED) today and trusting us with you care. We trust that you had a positive experience in our Emergency Department. If you wish to speak to the department management, you may call the Director at [phone]. YOUR FOLLOW UP INSTRUCTIONS ARE FOLLOWS: 1. Do you have a private Doctor? If you do not have a private doctor, please ask for a resource list of physicians or clinics that may be able to assist you with follow up care. 2. The Emergency Physicain has interpreted your x-rays. The X-Ray specialist will also review them. If there is a change in the findings, you will be notified in 48 hours when at all possible. 3. A lab test or culture has been done, your results will be reviewed and you will be notified if you need a change in treatment. ADDITIONAL INSTRUCTIONS AND INFORMATION: 1. Your care today has been supervised by a physician who is specially trained in emergency care. Many problems require more than one evaluation for a complete diagnosis and treatment. We recommend that you schedule your follow up appointment as recommended to ensure complete treatment of you illness or injury. If you are unable to obtain follow up care and continue to have a problem, or if your condition worsens, we recommend that you return to the ED. 2. We are not able to safely determine your condition over the phone nor are we able to give sound medical advice over the phone. For these safety reasons, if you call for medical advice we will ask you to come to the ED for further evaluation. 3. If you have any questions regarding these discharge instructions please call the ED at [phone]. SAFETY INFORMATION: In the interest of safety, wellness, and injury prevention; we encourage you to wear your sealbelt, if you smoke; quite smoking, and we encourage family to use a protective helmet for bicycling and other sporting events that present an increased risk for head injury. IF YOUR SYMPTOMS WORSEN OR NEW SYMPTOMS DEVELOP, OR YOU HAVE CONCERNS ABOUT YOUR CONDITION; OR IF YOUR CONDITION WORSENS WHILE YOU ARE WAITING FOR YOUR FOLLOW UP APPOINTMENT; EITHER CONTACT YOUR PRIMARY CARE DOCTOR, THE PHYSICIAN WHOSE NAME AND NUMBER YOU WERE GIVEN, OR RETURN TO THE ED IMMEDIATELY. Scripts Famotidine (PEPCID) 20 Mg Tablet 20 MG PO BID, #30 TAB Prov: PATY KUMAR MD 03/03/21 PATY KUMAR MD Mar 03, 2021 11:23
[2021-03-03] MEDS ORDERED: ACETAMINOPHEN 500 MG TABLET PO ONE (11:30)
== END 2021-03-03 12:00 | disposition home or self-care (01) ==
LOC: ER 11:07
DX: R51.9 Headache, unspecified (principal); R11.0 Nausea; J45.909 Unspecified asthma, uncomplicated; I10 Essential (primary) hypertension; F20.9 Schizophrenia, unspecified; F17.200 Nicotine dependence, unspecified, uncomplicated; F12.90 Cannabis use, unspecified, uncomplicated; Z98.890 Other specified postprocedural states
CPT/HCPCS: 99283

== ENCOUNTER 2021-03-10 07:52 | Emergency (ER) | payer MEDICAID ==
[~2021-03-10] VITALS: Ht 170.2 cm; Wt 101.0 kg
[2021-03-10 07:53] VITALS: BP 151/75
--- NOTE | 2021-03-10 08:44 | ED.ADGEN ---
Past Medical History Past Medical History: Asthma, Hypertension, Schizophrenia Additional Past Medical Histor: drug abuse Past Surgical History: Other Additional Past Surgical Histo: UNKNOWN Smoking Status: Current Every Day Smoker Alcohol Use: None Drug Use: Marijuana, Other General Adult EDM: Chief Complaint: MEDICATION REFILL HPI: HPI: Patient is a 40 year old male brought in by EMS for medication evaluation. Patient states he has been taking Wellbutrin but his psychiatric medications are not working he still hallucinating. Denies any suicidal homicidal ideations. Patient states he was trying to go to [facility] but the ambulance brought him here. Patient has no other complaints and otherwise has been well. Review of Systems: Review of Systems: All other systems within normal limits except for as noted in the HPI Current Medications: Current Medications Medications (Trade) Dose Ordered Sig/Hayde Start Time Stop Time Status Last Admin Dose Admin Multi-Ingredient Mouthwash/Gargle (Gi Cocktail) 20 ml 1X ONCE 03/10/21 09:30 03/10/21 09:31 DC 03/10/21 09:41 20 ML Allergies: Allergies: Allergies Coded Allergies Type Severity Reaction Last Updated Verified No Known Drug Allergies 02/14/17 No Physical Exam: PE: Constitutional: Well developed, well nourished, no acute distress, non-toxic appearance. [] HENT: Normocephalic, atraumatic, bilateral external ears normal, nose normal. [] Eyes: PERRLA, conjunctiva normal, no discharge. [] Neck: No rigidity, supple, no stridor. [] Cardiovascular: Regular rate and rhythm, brisk cap refill [] Lungs & Thorax: Non labored symmetric respirations, no tachypnea or respiratory distress [] Abdomen: Soft, nondistended. Skin: Warm, dry, no erythema, no rash. [] Back: Unremarkable Extremities: No deformities, range of motion grossly intact, no lower extremity edema [] Neurologic: Alert and oriented X 3, no focal deficits noted. [] Psychologic: Affect normal, judgement normal, mood normal. [] Current Patient Data: Labs: Laboratory Tests Test 03/10/21 07:58 Urine Opiates Screen Neg (NEG) Urine Methadone Screen Neg (NEG) Urine Barbiturates Neg (NEG) Urine Phencyclidine Screen Neg (NEG) Urine Amphetamine/Methamphetamine Neg (NEG) Urine Benzodiazepines Screen Neg (NEG) Urine Cocaine Screen Neg (NEG) Urine Cannabinoids Screen Neg (NEG) Urine Ethyl Alcohol Neg (NEG) Vital Signs: Vital Signs Date Time Temp Pulse Resp B/P (MAP) Pulse Ox O2 Delivery O2 Flow Rate FiO2 03/10/21 07:53 98.0 85 16 151/75 (100) 97 Room Air 98.0 EKG: EKG: [] Heart Score: C/O Chest Pain: No Risk Factors: Risk Factors: DM, Current or recent (<one month) smoker, HTN, HLP, family history of CAD, obesity. Risk Scores: Score 0 - 3: 2.5% MACE over next 6 weeks - Discharge Home Score 4 - 6: 20.3% MACE over next 6 weeks - Admit for Clinical Observation Score 7 - 10: 72.7% MACE over next 6 weeks - Early Invasive Strategies Radiology/Procedures: Radiology/Procedures: [] Course & Med Decision Making: Course & Med Decision Making PAT evaluation: Patient is not active self or others or has been following with [facility] and received his IM injection about 1 week ago, was told to call to make his next appointment tomorrow. Patient agrees to plan and is feeling better after GI cocktail Dragon Disclaimer: Sharmin Disclaimer: This electronic medical record was generated, in whole or in part, using a voice recognition dictation system. Departure Departure Impression: Primary Impression: Dyspepsia Additional Impression: Encounter for medical assessment Disposition: HOME / SELF CARE / HOMELESS Condition: STABLE Referrals: NO PCP (PCP) Additional Instructions: Call [facility] tomorrow. Use the number provided to you on the card Problem Qualifiers KURT GARCIA MD March 10, 2021 08:44
[2021-03-10] MEDS ORDERED: LIDO:MAALOX 1:1 20 ML SINGLE DOSE. SWSW ONE (09:30)
[2021-03-10 09:50] LABS: BILIRUBIN,URINE NEGATIVE (NEG); CLARITY,URINE CLEAR; COLOR,URINE YELLOW; NITRITE,URINE NEGATIVE (NEG); PROTEIN,URINE NEGATIVE (NEG-TRACE); UROBILINOGEN,URINE 0.2 mg/dL (0.2 mg/dL)
[2021-03-10 09:55] LABS: BARBITURATES NEG (NEG); BENZODIAZEPINES NEG (NEG); CANNABINOIDS NEG (NEG); COCAINE NEG (NEG); METHADONE NEG (NEG); OPIATES NEG (NEG); PHENCYCLIDINE NEG (NEG)
[2021-03-10 09:58] LABS: AMPHETAMINE/METHAMPHETAMINE NEG (NEG)
[2021-03-10 10:08] LABS: RBC,URINE 0 /HPF (0-2)
[2021-03-10 10:09] LABS: BACTERIA,URINE 0 /HPF (0-FEW); WBC,URINE 0 /HPF (0-4)
== END 2021-03-10 10:15 | disposition home or self-care (01) ==
LOC: ER 07:52
DX: R10.13 Epigastric pain (principal); Z76.0 Encounter for issue of repeat prescription; J45.909 Unspecified asthma, uncomplicated; I10 Essential (primary) hypertension; F20.9 Schizophrenia, unspecified; F17.200 Nicotine dependence, unspecified, uncomplicated
CPT/HCPCS: 80307; 81001; 99283

== ENCOUNTER 2021-03-21 22:33 | Emergency (ER) | payer MEDICAID ==
[~2021-03-21] VITALS: Ht 170.2 cm; Wt 101.0 kg
--- NOTE | 2021-03-21 23:03 | ED.ADGEN ---
Past Medical History Past Medical History: Asthma, Hypertension, Schizophrenia Additional Past Medical Histor: drug abuse Past Surgical History: Other Additional Past Surgical Histo: UNKNOWN Smoking Status: Current Every Day Smoker Alcohol Use: None Drug Use: Marijuana, Other General Adult EDM: Chief Complaint: ALTERED MENTAL STATUS HPI: HPI: Patient is a 40 year old male coming in via EMS from home. Patient was concerned because the voices that he hears told him to drink Neosporin. Patient states he had "2 squirts" of Neosporin followed by milk. States he took it because his stomach was been upset. Patient has been paranoid and not sleeping. Says he has been seeing shadows earlier. Takes Wellbutrin which he says he took today, has not taken his trazodone tonight. Denies any suicidal or homicidal ideations or commands. Review of Systems: Review of Systems: All other systems within normal limits except for as noted in the HPI Current Medications: Current Medications Medications (Trade) Dose Ordered Sig/Hayde Start Time Stop Time Status Last Admin Dose Admin Lorazepam (Ativan) 1 mg 1X ONCE 03/22/21 01:00 03/22/21 01:01 DC 03/22/21 01:02 1 MG Allergies: Allergies: Allergies Coded Allergies Type Severity Reaction Last Updated Verified No Known Drug Allergies 02/14/17 No Physical Exam: PE: Constitutional: Well developed, well nourished, no acute distress, non-toxic appearance. [] HENT: Normocephalic, atraumatic, bilateral external ears normal, nose normal. [] Eyes: PERRLA, conjunctiva normal, no discharge. [] Neck: No rigidity, supple, no stridor. [] Cardiovascular: Regular rate and rhythm, brisk cap refill [] Lungs & Thorax: Non labored symmetric respirations, no tachypnea or respiratory distress [] Abdomen: Soft, nondistended. Skin: Warm, dry, no erythema, no rash. [] Back: Unremarkable Extremities: No deformities, range of motion grossly intact, no lower extremity edema [] Neurologic: Alert and oriented X 3, no focal deficits noted. [] Psychologic: Affect normal, disturbed judgment, cooperative Current Patient Data: Labs: Laboratory Tests Test 03/21/21 23:05 03/22/21 00:08 White Blood Count 9.5 x10^3/uL (4.0-11.0) Red Blood Count 4.82 x10^6/uL (4.30-5.70) Hemoglobin 14.9 g/dL (13.0-17.5) Hematocrit 43.1 % (39.0-53.0) Mean Corpuscular Volume 89 fL (79-100) Mean Corpuscular Hemoglobin 31 pg (25-35) Mean Corpuscular Hemoglobin Concent 35 g/dL (31-37) Red Cell Distribution Width 13.4 % (11.5-14.5) Platelet Count 237 x10^3/uL (140-400) Neutrophils (%) (Auto) 59 % (31-73) Lymphocytes (%) (Auto) 29 % (24-48) Monocytes (%) (Auto) 10 % (0-9) H Eosinophils (%) (Auto) 1 % (0-3) Basophils (%) (Auto) 1 % (0-3) Neutrophils # (Auto) 5.6 x10^3/uL (1.8-7.7) Lymphocytes # (Auto) 2.7 x10^3/uL (1.0-4.8) Monocytes # (Auto) 1.0 x10^3/uL (0.0-1.1) Eosinophils # (Auto) 0.1 x10^3/uL (0.0-0.7) Basophils # (Auto) 0.1 x10^3/uL (0.0-0.2) Sodium Level 140 mmol/L (136-145) Potassium Level 3.7 mmol/L (3.5-5.1) Chloride Level 103 mmol/L (98-107) Carbon Dioxide Level 27 mmol/L (21-32) Anion Gap 10 (6-14) Blood Urea Nitrogen 13 mg/dL (8-26) Creatinine 1.0 mg/dL (0.7-1.3) Estimated GFR (Cockcroft-Gault) 101.2 BUN/Creatinine Ratio 13 (6-20) Glucose Level 102 mg/dL (70-99) H Calcium Level 9.4 mg/dL (8.5-10.1) Magnesium Level 2.1 mg/dL (1.8-2.4) Total Bilirubin 0.2 mg/dL (0.2-1.0) Aspartate Amino Transferase (AST) 34 U/L (15-37) Alanine Aminotransferase (ALT) 63 U/L (16-63) Alkaline Phosphatase 90 U/L (46-116) Total Protein 7.2 g/dL (6.4-8.2) Albumin 4.2 g/dL (3.4-5.0) Albumin/Globulin Ratio 1.4 (1.0-1.7) Salicylates Level < 2.8 mg/dL (2.8-20.0) L Salicylate Last Dose Date Unk Salicylate Last Dose Time Unk Acetaminophen Level < 2 mcg/ml (10-30) L Acetaminophen Last Dose Date Unk Acetaminophen Last Dose Time Unk Ethyl Alcohol Level < 10 mg/dL (0-10) Urine Collection Type Unknown Urine Color Yellow Urine Clarity Clear Urine pH 6.5 (<5.0-8.0) Urine Specific Slater 1.020 (1.000-1.030) Urine Protein Negative mg/dL (NEG-TRACE) Urine Glucose (UA) Negative mg/dL (NEG) Urine Ketones (Stick) Negative mg/dL (NEG) Urine Blood Negative (NEG) Urine Nitrite Negative (NEG) Urine Bilirubin Negative (NEG) Urine Urobilinogen Dipstick 0.2 mg/dL (0.2 mg/dL) Urine Leukocyte Esterase Negative (NEG) Urine RBC 0 /HPF (0-2) Urine WBC 0 /HPF (0-4) Urine Squamous Epithelial Cells Few /LPF Urine Bacteria 0 /HPF (0-FEW) Urine Mucus Slight /LPF Urine Opiates Screen Neg (NEG) Urine Methadone Screen Neg (NEG) Urine Barbiturates Neg (NEG) Urine Phencyclidine Screen Neg (NEG) Urine Amphetamine/Methamphetamine Neg (NEG) Urine Benzodiazepines Screen Neg (NEG) Urine Cocaine Screen Neg (NEG) Urine Cannabinoids Screen Pos (NEG) Urine Ethyl Alcohol Neg (NEG) Laboratory Tests 03/21/21 23:05 Laboratory Tests 03/21/21 23:05 Vital Signs: Vital Signs Date Time Temp Pulse Resp B/P (MAP) Pulse Ox O2 Delivery O2 Flow Rate FiO2 03/22/21 01:23 85 152/86 (108) 97 Room Air 03/21/21 22:36 98.1 12 98.1 EKG: EKG: [] Heart Score: C/O Chest Pain: No Risk Factors: Risk Factors: DM, Current or recent (<one month) smoker, HTN, HLP, family history of CAD, obesity. Risk Scores: Score 0 - 3: 2.5% MACE over next 6 weeks - Discharge Home Score 4 - 6: 20.3% MACE over next 6 weeks - Admit for Clinical Observation Score 7 - 10: 72.7% MACE over next 6 weeks - Early Invasive Strategies Radiology/Procedures: Radiology/Procedures: [] Course & Med Decision Making: Course & Med Decision Making Pertinent Labs and Imaging studies reviewed. (See chart for details) Consulted PAT for evaluation, appropriate for [facility] for reevaluation of his psychiatric medication treatment. Patient amenable to plan. [] Dragon Disclaimer: Dragon Disclaimer: This electronic medical record was generated, in whole or in part, using a voice recognition dictation system. Departure Departure Impression: Primary Impression: Schizophrenia Disposition: 01 HOME / SELF CARE / HOMELESS Condition: STABLE Referrals: NO PCP (PCP) Patient Instructions: Schizophrenia KURT GARCIA MD March 21, 2021 23:03
[2021-03-21 23:12] LABS: BASO # 0.1 x10^3/uL (0.0-0.2); BASO % 1 % (0-3); EOS # 0.1 x10^3/uL (0.0-0.7); EOS % 1 % (0-3); HEMATOCRIT 43.1 % (39.0-53.0); HEMOGLOBIN 14.9 g/dL (13.0-17.5); LYMPH # 2.7 x10^3/uL (1.0-4.8); LYMPH % 29 % (24-48); MEAN CORPUSCULAR HEMOGLOBIN 31 pg (25-35); MEAN CORPUSCULAR HGB CONC 35 g/dL (31-37); MEAN CORPUSCULAR VOLUME 89 fL (79-100); MONO % 10 % (0-9); NEUT # 5.6 x10^3/uL (1.8-7.7); NEUT % 59 % (31-73); PLATELET COUNT 237 x10^3/uL (140-400); RED BLOOD COUNT 4.82 x10^6/uL (4.30-5.70); RED CELL DISTRIBUTION WIDTH 13.4 % (11.5-14.5); WHITE BLOOD COUNT 9.5 x10^3/uL (4.0-11.0)
[2021-03-21 23:30] LABS: CALCIUM 9.4 mg/dL (8.5-10.1); GFR 101.2; POTASSIUM 3.7 mmol/L (3.5-5.1)
[2021-03-21 23:31] LABS: ACETAMIN < 2 mcg/ml (10-30); ETHANOL < 10 mg/dL (0-10); SALIC < 2.8 mg/dL (2.8-20.0)
[2021-03-21 23:33] LABS: ALBUMIN 4.2 g/dL (3.4-5.0); ALBUMIN/GLOBULIN RATIO 1.4 (1.0-1.7); MAGNESIUM 2.1 mg/dL (1.8-2.4); TOTAL BILIRUBIN 0.2 mg/dL (0.2-1.0); TOTAL PROTEIN 7.2 g/dL (6.4-8.2)
[2021-03-22 00:25] LABS: BILIRUBIN,URINE NEGATIVE (NEG); CLARITY,URINE CLEAR; COLOR,URINE YELLOW; NITRITE,URINE NEGATIVE (NEG); PH,URINE 6.5 (<5.0-8.0); PROTEIN,URINE NEGATIVE (NEG-TRACE); UROBILINOGEN,URINE 0.2 mg/dL (0.2 mg/dL)
[2021-03-22 00:32] LABS: AMPHETAMINE/METHAMPHETAMINE NEG (NEG); BARBITURATES NEG (NEG); BENZODIAZEPINES NEG (NEG); CANNABINOIDS POS (NEG); COCAINE NEG (NEG); METHADONE NEG (NEG); OPIATES NEG (NEG); PHENCYCLIDINE NEG (NEG)
[2021-03-22 00:34] LABS: BACTERIA,URINE 0 /HPF (0-FEW); RBC,URINE 0 /HPF (0-2); WBC,URINE 0 /HPF (0-4)
[2021-03-22 01:23] VITALS: BP 152/86
== END 2021-03-22 01:55 | disposition home or self-care (01) ==
LOC: ER 22:33
DX: F20.9 Schizophrenia, unspecified (principal); I10 Essential (primary) hypertension; J45.909 Unspecified asthma, uncomplicated; F17.200 Nicotine dependence, unspecified, uncomplicated
CPT/HCPCS: 36415; 80053; 80307; 80329; 81001; 83735; 85025; 99283; G0480

== ENCOUNTER 2021-03-24 04:25 | Emergency (ER) | payer MEDICAID ==
[~2021-03-24] VITALS: Ht 177.8 cm; Wt 100.0 kg
[2021-03-24] MEDS ORDERED: MAG HYDROX/ALUMINUM HYD/SIMETH 30 ML ORAL.SUSP PO ONE (05:00)
--- NOTE | 2021-03-24 05:10 | PHYS DOC ---
Past Medical History Past Medical History: Asthma, Hypertension, Schizophrenia Additional Past Medical Histor: drug abuse Past Surgical History: Other Additional Past Surgical Histo: UNKNOWN Smoking Status: Current Every Day Smoker Alcohol Use: None Drug Use: Marijuana, Other General Adult EDM: Chief Complaint: SKIN PROBLEM HPI: HPI: Patient is a 40 year old male with past medical history of astham and hypertesion presents with the chief complaint of chest pain. Patent well known to staff. Patient walked into the ER transported by EMS. States he has had chest discomfort for "awhile"-- tonight he rubbed a cream on his chest that he states felt his skin feel tighter and resulted in chest pain. Pain has improved since arrival. EKG performed and shows no change from previous. Patient frequently requests GI cocktail or maalox. Maalox was requested and provided to patient. Patient was discharged home in improved condition. Review of Systems: Review of Systems: Constitutional: Denies fever or chills. [] Eyes: Denies change in visual acuity. [] HENT: Denies nasal congestion or sore throat. [] Respiratory: Denies cough or shortness of breath. [] Cardiovascular: positive chest pain GI: Denies abdominal pain, nausea, vomiting, bloody stools or diarrhea. [] : Denies dysuria. [] Musculoskeletal: Denies back pain or joint pain. [] Integument: Denies rash. [] Neurologic: Denies headache, focal weakness or sensory changes. [] Endocrine: Denies polyuria or polydipsia. [] Lymphatic: Denies swollen glands. [] Psychiatric: Denies depression or anxiety. [] Heart Score: C/O Chest Pain: Yes HEART Score for Chest Pain: HEART Score for Chest Pain Response (Comments) Value History Slighlty/Non-Suspicious 0 ECG Normal 0 Age < 45 0 Risk Factors 1 or 2 Risk Factors 1 Total 1 Risk Factors: Risk Factors: DM, Current or recent (<one month) smoker, HTN, HLP, family history of CAD, obesity. Risk Scores: Score 0 - 3: 2.5% MACE over next 6 weeks - Discharge Home Score 4 - 6: 20.3% MACE over next 6 weeks - Admit for Clinical Observation Score 7 - 10: 72.7% MACE over next 6 weeks - Early Invasive Strategies Current Medications: Current Medications Medications (Trade) Dose Ordered Sig/Hayde Start Time Stop Time Status Last Admin Dose Admin Al Hydroxide/Mg Hydroxide (Mylanta Plus Xs) 30 ml 1X ONCE 03/24/21 05:00 03/24/21 05:01 DC Allergies: Allergies: Allergies Coded Allergies Type Severity Reaction Last Updated Verified No Known Drug Allergies 02/14/17 No Physical Exam: PE: Constitutional: Well developed, well nourished, no acute distress, non-toxic appearance. [] HENT: Normocephalic, atraumatic, bilateral external ears normal, oropharynx moist, no oral exudates, nose normal. [] Eyes: PERRLA, EOMI, conjunctiva normal, no discharge. [] Neck: Normal range of motion, no tenderness, supple, no stridor. [] Cardiovascular:Heart rate regular rhythm, no murmur [] Lungs & Thorax: Bilateral breath sounds clear to auscultation [] Abdomen: Bowel sounds normal, soft, no tenderness, no masses, no pulsatile masses. [] Skin: Warm, dry, no erythema, no rash. [] Back: No tenderness, no CVA tenderness. [] Extremities: No tenderness, no cyanosis, no clubbing, ROM intact, no edema. [] Neurologic: Alert and oriented X 3, normal motor function, normal sensory function, no focal deficits noted. [] Psychologic: Affect normal, judgement normal, mood normal. [] EKG: EKG: [] EKG performed at 459 heart rate [address] elevation no ST depression no acute NC Radiology/Procedures: Radiology/Procedures: [] Course & Med Decision Making: Course & Med Decision Making Pertinent Labs and Imaging studies reviewed. (See chart for details) [] Dragon Disclaimer: Dragon Disclaimer: This electronic medical record was generated, in whole or in part, using a voice recognition dictation system. Departure Departure Impression: Primary Impression: Dyspepsia Additional Impression: Chest pain Disposition: HOME / SELF CARE / HOMELESS Condition: STABLE Referrals: NO PCP (PCP) Patient Instructions: Chest Pain (Nonspecific) JENNIFER MCGRAW I DO March 24, 2021 05:10
[2021-03-24 05:20] VITALS: BP 142/64
--- NOTE | 2021-03-24 07:28 | EKG ---
[facility] [address] [place] [address] Test Date: 2021-03-24 Test Time: 04:59:38 Pat Name: RUBIN HADLEY Department: Room: Gender: M Cra Officer: : 1980 Requested By: JENNIFER MCGRAW Order Number: [id number] Reading MD: Measurements Intervals [place] Rate: 82 P: 41 WA: 174 QRS: 43 QRSD: 84 T: 9 QT: 340 QTc: 400 Interpretive Statements SINUS RHYTHM LEFT ATRIAL ABNORMALITY ST & T ABNORMALITY, CONSIDER RECENT HIGH LATERAL MYOCARDIAL OR PERICARDIAL DAMAGE ABNORMAL ECG RI6.01 No previous ECG available for comparison
[2021-03-24] MEDS ORDERED: OMEP40CA45 PO (22:26)
== END 2021-03-24 05:25 | disposition home or self-care (01) ==
LOC: ER 04:25
DX: R07.89 Other chest pain (principal); R10.13 Epigastric pain; J45.909 Unspecified asthma, uncomplicated; I10 Essential (primary) hypertension; F20.9 Schizophrenia, unspecified; F17.200 Nicotine dependence, unspecified, uncomplicated
CPT/HCPCS: 93005; 99283

== ENCOUNTER 2021-03-24 20:35 | Emergency (ER) | payer MEDICAID ==
[~2021-03-24] VITALS: Ht 172.7 cm; Wt 100.0 kg
[2021-03-24 20:40] VITALS: BP 152/90
[2021-03-24] MEDS ORDERED: OMEP40CA45 PO (22:26)
--- NOTE | 2021-03-24 22:27 | ED.ADGEN ---
Past Medical History Past Medical History: Asthma, Hypertension, Schizophrenia Additional Past Medical Histor: drug abuse Past Surgical History: Other Additional Past Surgical Histo: UNKNOWN Smoking Status: Current Every Day Smoker Alcohol Use: None Drug Use: Marijuana, Other General Adult EDM: Chief Complaint: MEDICATION REFILL HPI: HPI: Patient is a 40 year old AA male who presents emergency department via EMS stating that he needs a refill of his omeprazole. Patient states he takes 40 mg of omeprazole every day and he is out of it. He denies any fever, cough, shortness of breath, chest pain, abdominal pain, nausea, vomiting, diarrhea, s ore throat, or rash. He currently denies any pain. He states all he wants is a refill. Review of Systems: Review of Systems: Complete ROS is negative unless otherwise noted in HPI. Allergies: Allergies: Allergies Coded Allergies Type Severity Reaction Last Updated Verified No Known Drug Allergies 02/14/17 No Physical Exam: PE: See Above Constitutional: Well developed, well nourished, no acute distress, non-toxic appearance. [] HENT: Normocephalic, atraumatic, bilateral external ears normal, nose normal. [] Eyes: PERRLA, EOMI, conjunctiva normal, no discharge. [] Neck: Normal range of motion, no stridor. [] Cardiovascular:Heart rate regular rhythm Lungs & Thorax: Respirations even and unlabored, no retractions, no respiratory distress Skin: Warm, dry, no erythema, no rash. [] Extremities: No cyanosis, ROM intact, no edema. [] Neurologic: Alert and oriented X 3, no focal deficits noted. [] Psychologic: Affect normal, judgement normal, mood normal. [] Current Patient Data: Vital Signs: Vital Signs Date Time Temp Pulse Resp B/P (MAP) Pulse Ox O2 Delivery O2 Flow Rate FiO2 03/24/21 20:40 98.7 98 152/90 (110) 98 98.7 03/24/21 20:38 18 Room Air EKG: EKG: [] Heart Score: C/O Chest Pain: No Risk Scores: Score 0 - 3: 2.5% MACE over next 6 weeks - Discharge Home Score 4 - 6: 20.3% MACE over next 6 weeks - Admit for Clinical Observation Score 7 - 10: 72.7% MACE over next 6 weeks - Early Invasive Strategies Radiology/Procedures: Radiology/Procedures: [] Course & Med Decision Making: Course & Med Decision Making Pertinent Labs and Imaging studies reviewed. (See chart for details) []The patient was seen and interviewed as well as examined at the bedside. The chart was reviewed. The case was discussed. Agree with the plan of care. Sharmin Disclaimer: Sharmin Disclaimer: This electronic medical record was generated, in whole or in part, using a voice recognition dictation system. Departure Departure Impression: Primary Impression: Medication refill Disposition: HOME / SELF CARE / HOMELESS Condition: STABLE Referrals: NO PCP (PCP) Patient Instructions: Medication Refill, Emergency Department Additional Instructions: Fill the prescription and use it as directed. Follow-up with your primary care doctor for future refills of this medication, return to the ER if symptoms worsen or fever develops. [facility] [address] [place] [address] [facility] [address] [place] [address] [facility] [address] [place] [address] [facility] [address] [place] [address] [facility] [address] [place] [address] [facility] [address] [place] [address] [facility] [address] [place] [address] [facility] [address] [place] [address] [facility] [address] [place] [address] [facility] [address] [place] [address] Scripts Omeprazole (OMEPRAZOLE) 40 Mg Capsule. 1 CAP PO DAILY for 30 Days, #30 CAP 0 Refills Prov: FLORA CLINTON APRN 03/24/21 FLORA CLINTON APRN March 24, 2021 22:27 JENNIFER MCGRAW DO March 27, 2021 18:57
== END 2021-03-24 22:40 | disposition home or self-care (01) ==
LOC: ER 20:35
DX: R12 Heartburn (principal); Z76.0 Encounter for issue of repeat prescription; J45.909 Unspecified asthma, uncomplicated; I10 Essential (primary) hypertension; F20.9 Schizophrenia, unspecified; F17.200 Nicotine dependence, unspecified, uncomplicated
CPT/HCPCS: 99283

== ENCOUNTER 2021-03-27 04:55 | Emergency (ER) | payer MEDICAID ==
[~2021-03-27] VITALS: Ht 170.2 cm; Wt 100.0 kg
[~2021-03-27 04:55] MED LIST changes: +OMEP40CA45 PO
--- NOTE | 2021-03-27 04:58 | PHYS DOC ---
Past Medical History Past Medical History: Asthma, Hypertension, Schizophrenia Additional Past Medical Histor: drug abuse Past Surgical History: Other Additional Past Surgical Histo: UNKNOWN Smoking Status: Current Every Day Smoker Alcohol Use: None Drug Use: Marijuana, Other General Adult EDM: Chief Complaint: NAUSEA/VOMITING/DIARRHEA HPI: HPI: Patient is a 40yo male presenting via [facility] for nausea, vomit and diarrhea. This is his 3rd visit in 72 hours. He is well known to our ER and has schizophrenia among other conditions and does not follow-up in outpatient setting for his chronic diseases. Was seen here 48 hours prior for GERD and prescribed PPI. He has taken x1 dose of this. He last ate macaroni and cheese and reheated frozen taco meat and became nauseas. He later developed x1 episode of "green poop" prompting him to call [facility] to transfer to our facility for arrival. Review of Systems: Review of Systems: Fourteen body systems of review of systems have been reviewed. See HPI for per tinent positives and negative responses, other jordan all other systems are negative, non-pertinent or non-contributory Heart Score: C/O Chest Pain: No Risk Factors: Risk Factors: DM, Current or recent (<one month) smoker, HTN, HLP, family history of CAD, obesity. Risk Scores: Score 0 - 3: 2.5% MACE over next 6 weeks - Discharge Home Score 4 - 6: 20.3% MACE over next 6 weeks - Admit for Clinical Observation Score 7 - 10: 72.7% MACE over next 6 weeks - Early Invasive Strategies Allergies: Allergies: Allergies Coded Allergies Type Severity Reaction Last Updated Verified No Known Drug Allergies 02/14/17 No Physical Exam: PE: Constitutional: Well developed, well nourished, no acute distress, non-toxic appearance. HENT: Normocephalic, atraumatic, bilateral external ears normal, oropharynx moist, no oral exudates, nose normal. Eyes: PERRLA, EOMI, conjunctiva normal, no discharge. Neck: Normal range of motion, no tenderness, supple, no stridor. Cardiovascular: Heart rate regular, sinus rhythm, no murmurs rubs or gallops Lungs & Thorax: Bilateral breath sounds clear to auscultation Abdomen: Bowel sounds normal, soft, no tenderness, no masses, no pulsatile masses. Nonsurgical abdomen, no peritoneal signs Skin: Warm, dry, no erythema, no rash. Back: No tenderness, no CVA tenderness. Extremities: No tenderness, no cyanosis, no clubbing, ROM intact, no edema. Neurologic: Alert and oriented X 3, grossly normal motor & sensory function, no focal deficits noted. Psychologic: Affect normal, judgement normal, mood normal. Current Patient Data: Vital Signs: Vital Signs Date Time Temp Pulse Resp B/P (MAP) Pulse Ox O2 Delivery O2 Flow Rate FiO2 03/27/21 05:00 98.7 74 22 130/75 (93) Room Air 98.7 Vital Signs Date Time Temp Pulse Resp B/P (MAP) Pulse Ox O2 Delivery O2 Flow Rate FiO2 03/27/21 05:00 98.7 74 22 130/75 (93) Room Air 98.7 EKG: EKG: [] Radiology/Procedures: Radiology/Procedures: [] Course & Med Decision Making: Course & Med Decision Making VSS. HPI and PE non-concerning. Patient requesting GI cocktail, this was administered and improved symptoms. He is wanting triple antibiotic ointment for left cheek hypopigmented lesion, this was declined. Patient educated on need to establish PCP. He was educated on using EMS services for legitimate emergencies and that many of his visit could be handled in outpatient setting instead of tying up emergency care services Strict return precautions discussed with good understanding, all questions and concerns addressed prior to departure Sharmin Disclaimer: Sharmin Disclaimer: This electronic medical record was generated, in whole or in part, using a voice recognition dictation system. Departure Departure Impression: Primary Impression: GERD (gastroesophageal reflux disease) Additional Impression: Nausea vomiting and diarrhea Disposition: 01 HOME / SELF CARE / HOMELESS Condition: IMPROVED Referrals: NO PCP (PCP) Patient Instructions: Nausea and Vomiting Additional Instructions: You were seen for nausea and vomiting. You need to take all previously prescribed medications as instructed on medication bottle label. You need to contact a local primary care physician to review your numerous complaints and comorbidities in outpatient setting. You should return to the ED if you develop abdominal pain, fever > 100.3, black/bloody stools, black/bloody vomiting, cannot keep water down, or any other new or concerning symptoms. SUE VARGHESE DO March 27, 2021 04:58
[2021-03-27 05:00] VITALS: BP 130/75
[2021-03-27] MEDS ORDERED: LIDO:MAALOX 1:1 20 ML SINGLE DOSE. SWSW ONE (05:30)
== END 2021-03-27 06:05 | disposition home or self-care (01) ==
LOC: ER 04:55
DX: K21.9 Gastro-esophageal reflux disease without esophagitis (principal); J45.909 Unspecified asthma, uncomplicated; I10 Essential (primary) hypertension; F20.9 Schizophrenia, unspecified; F17.200 Nicotine dependence, unspecified, uncomplicated
CPT/HCPCS: 99283

== ENCOUNTER 2021-03-31 14:40 | Emergency (ER) | payer MEDICAID ==
[~2021-03-31] VITALS: Ht 182.9 cm; Wt 90.0 kg
[2021-03-31 16:10] VITALS: BP 142/92
--- NOTE | 2021-03-31 17:13 | ED.ADGEN ---
Past Medical History Past Medical History: Asthma, Hypertension, Schizophrenia Additional Past Medical Histor: drug abuse Past Surgical History: Other Additional Past Surgical Histo: UNKNOWN Smoking Status: Current Every Day Smoker Alcohol Use: None Drug Use: Marijuana, Other General Adult EDM: Chief Complaint: OTHER COMPLAINTS HPI: HPI: Patient is a 40-year-old male with past medical history of schizophrenia presents to the emergency room concerned that may be the bottle of Gatorade he drank was poison. He states he started feeling sleepy while drinking it and so he went to make sure he was not poison. He now feels normal. He has no other complaints. Review of Systems: Review of Systems: Complete ROS is negative unless otherwise documented in HPI Allergies: Allergies: Allergies Coded Allergies Type Severity Reaction Last Updated Verified No Known Drug Allergies 02/14/17 No Physical Exam: PE: General: Awake, alert, NAD. Well Nourished, well hydrated. Cooperative HEENT: Atraumatic, EOMI, PERRL, airway patent, moist oral mucosa Neck: Supple, trachea midline Respiratory: CTA bilaterally, normal effort, no wheezing/crackles CV: RRR, no murmur, cap refill <2 GI: Soft, nondistended, nontender, no masses MSK: No obvious deformities Skin: Warm, dry, intact Neuro: A&O x3, speech NL, sensory and motor grossly intact, no focal deficits Psych: Flat affect, paranoid, not suicidal or homicidal Current Patient Data: Vital Signs: Vital Signs Date Time Temp Pulse Resp B/P (MAP) Pulse Ox O2 Delivery O2 Flow Rate FiO2 03/31/21 16:10 98.8 86 16 142/92 (109) 96 Room Air 98.8 EKG: EKG: [] Heart Score: C/O Chest Pain: N/A Risk Factors: Risk Factors: DM, Current or recent (<one month) smoker, HTN, HLP, family history of CAD, obesity. Risk Scores: Score 0 - 3: 2.5% MACE over next 6 weeks - Discharge Home Score 4 - 6: 20.3% MACE over next 6 weeks - Admit for Clinical Observation Score 7 - 10: 72.7% MACE over next 6 weeks - Early Invasive Strategies Radiology/Procedures: Radiology/Procedures: [] Course & Med Decision Making: Course & Med Decision Making Pertinent Labs and Imaging studies reviewed. (See chart for details) Patient is a 40-year-old male who presents to the emergency room complaining of possibly being poisoned. Patient is well-appearing at this time he is not lethargic. Drug screen will be done. At this time patient is stable for discharge. Patient's test results and vitals while in the ED were fully reviewed and discussed with the patient. Patient is stable and at this time does not need admission to the hospital. We have discussed strict return precautions and the importance of following up with their Primary Care Physician. Patient stated understanding and was given an opportunity to ask any questions. Patient is in agreement with plan. Darriuson Disclaimer: Dragon Disclaimer: This electronic medical record was generated, in whole or in part, using a voice recognition dictation system. Departure Departure Impression: Primary Impression: Paranoia Disposition: 01 HOME / SELF CARE / HOMELESS Condition: STABLE Referrals: NO PCP (PCP) Patient Instructions: Drug Testing LITZY OJEDA MD March 31, 2021 17:13
[2021-03-31 17:17] LABS: BARBITURATES NEG (NEG); BENZODIAZEPINES NEG (NEG); CANNABINOIDS POS (NEG); COCAINE NEG (NEG); METHADONE NEG (NEG); OPIATES NEG (NEG); PHENCYCLIDINE NEG (NEG)
[2021-03-31 17:20] LABS: AMPHETAMINE/METHAMPHETAMINE NEG (NEG)
[2021-03-31] MEDS ORDERED: LIDO:MAALOX 1:1 20 ML SINGLE DOSE. SWSW ONE (18:00)
== END 2021-03-31 17:55 | disposition home or self-care (01) ==
LOC: ER 14:40
DX: F22 Delusional disorders (principal); J45.909 Unspecified asthma, uncomplicated; I10 Essential (primary) hypertension; F20.9 Schizophrenia, unspecified; F17.200 Nicotine dependence, unspecified, uncomplicated
CPT/HCPCS: 80307; 99283

== ENCOUNTER 2021-04-15 03:19 | Emergency (ER) | payer MEDICAID ==
[~2021-04-15] VITALS: Ht 170.2 cm; Wt 82.0 kg
[~2021-04-15 03:19] MED LIST changes: -OMEP40CA45 PO; +OMEP40CA7 PO
[2021-04-15 03:20] VITALS: BP 145/101
[2021-04-15] MEDS ORDERED: LIDO:MAALOX 1:1 20 ML SINGLE DOSE. PO ONE (03:30)
--- NOTE | 2021-04-15 03:31 | PHYS DOC ---
Past Medical History Past Medical History: Asthma, Hypertension, Schizophrenia Additional Past Medical Histor: drug abuse Past Surgical History: Other Additional Past Surgical Histo: UNKNOWN Smoking Status: Current Every Day Smoker Alcohol Use: None Drug Use: Marijuana, Other General Adult EDM: Chief Complaint: MEDICATION REFILL HPI: HPI: Patient is a 40 year old [f__sex] who presents with [] Review of Systems: Review of Systems: Constitutional: Denies fever or chills Eyes: Denies redness or eye pain HENT: Denies nasal congestion or sore throat Respiratory: Denies cough or shortness of breath Cardiovascular: Denies chest pain or palpitations GI: Denies abdominal pain, nausea, or vomiting : Denies dysuria or hematuria Musculoskeletal: Denies back pain or joint pain Integument: Denies rash or skin lesions Neurologic: Denies headache, focal weakness or sensory changes Complete systems were reviewed and found to be within normal limits, except as documented in this note. Heart Score: C/O Chest Pain: N/A Allergies: Allergies: Allergies Coded Allergies Type Severity Reaction Last Updated Verified No Known Drug Allergies 02/14/17 No Physical Exam: PE: Constitutional: Well developed, well nourished, no acute distress, non-toxic appearance HENT: Normocephalic, atraumatic Eyes: PERRL, EOMI, conjunctiva normal, no discharge Neck: Normal range of motion, no tenderness, supple Lungs & Thorax: No respiratory distress, equal chest rise and fall Abdomen: Soft, no tenderness Skin: Warm, dry, no erythema, no rash Back: No tenderness, no CVA tenderness Extremities: No tenderness, ROM intact, no edema Neurologic: Alert and oriented X 3, normal motor function, normal sensory function, no focal deficits noted Psychologic: Affect normal, judgment normal EKG: EKG: [] Radiology/Procedures: Radiology/Procedures: [] Course & Med Decision Making: Course & Med Decision Making Pertinent Labs and Imaging studies reviewed. (See chart for details) [] Dragon Disclaimer: Dragon Disclaimer: This electronic medical record was generated, in whole or in part, using a voice recognition dictation system. Departure Departure Impression: Primary Impression: Epigastric pain Disposition: HOME / SELF CARE / HOMELESS Condition: STABLE Referrals: NO PCP (PCP) Patient Instructions: Gastritis, Adult, [id number] Additional Instructions: Please call [facility] at in the morning to seek help for your mental health and for adjustment of your mental health medications. EVA MONSIVAIS DO Apr 15, 2021 03:31
== END 2021-04-15 03:40 | disposition home or self-care (01) ==
LOC: ER 03:19
DX: R10.13 Epigastric pain (principal); J45.909 Unspecified asthma, uncomplicated; I10 Essential (primary) hypertension; F20.9 Schizophrenia, unspecified; F17.200 Nicotine dependence, unspecified, uncomplicated
CPT/HCPCS: 99283

== ENCOUNTER 2021-04-20 17:31 | Emergency (ER) | payer MEDICAID ==
[2021-04-20 17:35] VITALS: BP 133/87
== END 2021-04-20 19:06 | disposition left against medical advice (07) ==
LOC: ER 17:31
DX: R11.2 Nausea with vomiting, unspecified (principal); Z53.21 Procedure and treatment not carried out due to patient leaving prior to being seen by health care provider

== ENCOUNTER 2021-04-23 22:19 | Emergency (ER) | payer MEDICAID ==
[~2021-04-23] VITALS: Ht 182.9 cm; Wt 100.0 kg
[2021-04-23] MEDS ORDERED: LIDO:MAALOX 1:1 20 ML SINGLE DOSE. SWSW ONE (22:30)
[2021-04-23] MEDS ORDERED: CYCLOBENZAPRINE 10 MG TABLET. PO ONE (22:30)
--- NOTE | 2021-04-23 22:56 | PHYS DOC ---
Past Medical History Past Medical History: Asthma, Hypertension, Schizophrenia Additional Past Medical Histor: drug abuse Past Surgical History: Other Additional Past Surgical Histo: UNKNOWN Smoking Status: Current Every Day Smoker Alcohol Use: None Drug Use: Marijuana, Other General Adult EDM: Chief Complaint: GI PROBLEM HPI: HPI: Patient is a 40 year old male with a history of schizophrenia, hypertension, asthma, who presents to the ED today stating he has chronic epigastric pain rated as mild and intermittent and would like a GI cocktail. Patient denies anything exacerbating or relieving the pain. He is also requesting a muscle relaxer, he states he takes it occasionally for chronic jaw pain. Review of Systems: Review of Systems: Constitutional: Denies fever or chills. [] Eyes: Denies change in visual acuity. [] HENT: R chronic jaw pain, denies nasal congestion or sore throat. [] Respiratory: Denies cough or shortness of breath. [] Cardiovascular: Denies chest pain or edema. [] GI: Reports epigastric abdominal pain, denies nausea, vomiting, bloody stools or diarrhea. [] : Denies dysuria. [] Musculoskeletal: Denies back pain or joint pain. [] Integument: Denies rash. [] Neurologic: Denies headache, focal weakness or sensory changes. [] Endocrine: Denies polyuria or polydipsia. [] Lymphatic: Denies swollen glands. [] Psychiatric: Denies depression or anxiety. [] Heart Score: C/O Chest Pain: N/A Risk Factors: Risk Factors: DM, Current or recent (<one month) smoker, HTN, HLP, family history of CAD, obesity. Risk Scores: Score 0 - 3: 2.5% MACE over next 6 weeks - Discharge Home Score 4 - 6: 20.3% MACE over next 6 weeks - Admit for Clinical Observation Score 7 - 10: 72.7% MACE over next 6 weeks - Early Invasive Strategies Current Medications: Current Medications Medications (Trade) Dose Ordered Sig/Hayde Start Time Stop Time Status Last Admin Dose Admin Cyclobenzaprine HCl (Flexeril) 10 mg 1X ONCE 04/23/21 22:30 04/23/21 22:31 DC Multi-Ingredient Mouthwash/Gargle (Gi Cocktail) 20 ml 1X ONCE 04/23/21 22:30 04/23/21 22:31 DC Allergies: Allergies: Allergies Coded Allergies Type Severity Reaction Last Updated Verified No Known Drug Allergies 02/14/17 No Physical Exam: PE: Constitutional: Well developed, well nourished, no acute distress, non-toxic appearance. [] HENT: Normocephalic, atraumatic, bilateral external ears normal, oropharynx moist, no oral exudates, nose normal. [] Eyes: PERRLA, EOMI, conjunctiva normal, no discharge. [] Neck: Normal range of motion, no tenderness, supple, no stridor. [] Cardiovascular:Heart rate regular rhythm, no murmur [] Lungs & Thorax: Bilateral breath sounds clear to auscultation [] Abdomen: Bowel sounds normal, soft, no tenderness, no masses, no pulsatile masses. [] Skin: Warm, dry, no erythema, no rash. [] Back: No tenderness, no CVA tenderness. [] Extremities: No tenderness, no cyanosis, no clubbing, ROM intact, no edema. [] Neurologic: Alert and oriented X 3, normal motor function, normal sensory function, no focal deficits noted. [] Psychologic: Affect normal, judgement normal, mood normal. [] EKG: EKG: [] Radiology/Procedures: Radiology/Procedures: [] Course & Med Decision Making: Course & Med Decision Making Pertinent Labs and Imaging studies reviewed. (See chart for details) This is a 40-year-old male patient well-known to this ED presenting today requesting GI cocktail for chronic epigastric pain. Also requesting a muscle relaxer for chronic jaw pain. Medicines were given, he was discharged to home. Sharmin Disclaimer: Sharmin Disclaimer: This electronic medical record was generated, in whole or in part, using a voice recognition dictation system. Departure Departure Impression: Primary Impression: Chronic jaw pain Additional Impression: GERD (gastroesophageal reflux disease) Qualified Codes: K21.9 - Gastro-esophageal reflux disease without esophagitis Disposition: HOME / SELF CARE / HOMELESS Condition: STABLE Referrals: NO PCP (PCP) Follow-up with your doctor next week Patient Instructions: Diet for Gastroesophageal Reflux Disease, Adult, Gastroe sophageal Reflux Disease, Adult Additional Instructions: You were evaluated in the emergency room, please follow-up with your primary care doctor next week YOGESH DIAZ APRN Apr 23, 2021 22:56
[2021-04-23 23:20] VITALS: BP 141/69
== END 2021-04-23 23:52 | disposition home or self-care (01) ==
LOC: ER 22:19
DX: G89.29 Other chronic pain (principal); R10.13 Epigastric pain; R68.84 Jaw pain; I10 Essential (primary) hypertension; J45.909 Unspecified asthma, uncomplicated; F20.9 Schizophrenia, unspecified; F17.200 Nicotine dependence, unspecified, uncomplicated
CPT/HCPCS: 99283

== ENCOUNTER 2021-05-07 19:35 | Emergency (ER) | payer MEDICAID ==
[~2021-05-07] VITALS: Ht 177.8 cm; Wt 101.0 kg
[2021-05-07 19:42] VITALS: BP 140/93
--- NOTE | 2021-05-07 20:32 | PHYS DOC ---
Past Medical History Past Medical History: Asthma, Hypertension, Schizophrenia Additional Past Medical Histor: drug abuse Past Surgical History: Other Additional Past Surgical Histo: UNKNOWN Smoking Status: Current Every Day Smoker Alcohol Use: None Drug Use: Marijuana, Other General Adult EDM: Chief Complaint: FACE PAIN HPI: HPI: Patient is a 40 year old male who present to ER for evaluation of left-sided facial skin irritation that started today. Patient said he like to have some cream on his face. Review of Systems: Review of Systems: Constitutional: Denies fever or chills. [] Eyes: Denies change in visual acuity. [] HENT: Denies nasal congestion or sore throat. [] Respiratory: Denies cough or shortness of breath. [] Cardiovascular: Denies chest pain or edema. [] GI: Denies abdominal pain, nausea, vomiting, bloody stools or diarrhea. [] : Denies dysuria. [] Musculoskeletal: Denies back pain or joint pain. [] Integument: Denies rash. [] Neurologic: Denies headache, focal weakness or sensory changes. [] Endocrine: Denies polyuria or polydipsia. [] Lymphatic: Denies swollen glands. [] Psychiatric: Denies depression or anxiety. [] Heart Score: C/O Chest Pain: N/A Risk Factors: Risk Factors: DM, Current or recent (<one month) smoker, HTN, HLP, family history of CAD, obesity. Risk Scores: Score 0 - 3: 2.5% MACE over next 6 weeks - Discharge Home Score 4 - 6: 20.3% MACE over next 6 weeks - Admit for Clinical Observation Score 7 - 10: 72.7% MACE over next 6 weeks - Early Invasive Strategies Allergies: Allergies: Allergies Coded Allergies Type Severity Reaction Last Updated Verified No Known Drug Allergies 02/14/17 No Physical Exam: PE: Constitutional: Well developed, well nourished, no acute distress, non-toxic appearance. [] HENT: Normocephalic, atraumatic, bilateral external ears normal, oropharynx moist, no oral exudates, nose normal. [] Eyes: PERRLA, EOMI, conjunctiva normal, no discharge. [] Neck: Normal range of motion, no tenderness, supple, no stridor. [] Cardiovascular:Heart rate regular rhythm, no murmur [] Lungs & Thorax: Bilateral breath sounds clear to auscultation [] Skin: Warm, dry, no erythema, no rash. [] Neurologic: Alert and oriented X 3, normal motor function, normal sensory function, no focal deficits noted. [] Psychologic: Affect normal, judgement normal, mood normal. [] Current Patient Data: Vital Signs: Vital Signs Date Time Temp Pulse Resp B/P (MAP) Pulse Ox O2 Delivery O2 Flow Rate FiO2 05/07/21 19:42 98.5 84 20 140/93 (109) 94 Room Air 98.5 EKG: EKG: [] Radiology/Procedures: Radiology/Procedures: [] Course & Med Decision Making: Course & Med Decision Making Pertinent Labs and Imaging studies reviewed. (See chart for details) [] Dragon Disclaimer: Dragon Disclaimer: This electronic medical record was generated, in whole or in part, using a voice recognition dictation system. Departure Departure Impression: Primary Impression: Skin irritation Disposition: HOME / SELF CARE / HOMELESS Condition: STABLE Referrals: NO PCP (PCP) Follow up with your doctor as needed Patient Instructions: 5'-Nucleotidase Scripts Diphenhydramine Hcl/Zinc Acet (BENADRYL ITCH STOPPING CRM) 28.3 Gm Cream..g. 1 JEWEL TP BID PRN for ITCHING for 7 Days, #28.3 GM 0 Refills Prov: MINH PHILIPPE DO 05/07/21 MINH PHILIPPE DO May 07, 2021 20:32
[2021-05-07] MEDS ORDERED: DIPH28.34 TP (20:33)
== END 2021-05-07 20:49 | disposition home or self-care (01) ==
LOC: ER 19:35
DX: L98.9 Disorder of the skin and subcutaneous tissue, unspecified (principal); I10 Essential (primary) hypertension; J45.909 Unspecified asthma, uncomplicated; F20.9 Schizophrenia, unspecified; F17.200 Nicotine dependence, unspecified, uncomplicated
CPT/HCPCS: 99282

== ENCOUNTER 2021-05-09 20:49 | Emergency (ER) | payer MEDICAID ==
[~2021-05-09] VITALS: Ht 172.7 cm; Wt 101.0 kg
[~2021-05-09 20:49] MED LIST changes: +DIPH28.34 TP
[2021-05-09] MEDS ORDERED: CYCLOBENZAPRINE 10 MG TABLET. PO ONE (21:30)
[2021-05-09] MEDS ORDERED: LIDO:MAALOX 1:1 20 ML SINGLE DOSE. SWSW ONE (21:30)
--- NOTE | 2021-05-09 21:34 | PHYS DOC ---
Past Medical History Past Medical History: Asthma, Hypertension, Schizophrenia Additional Past Medical Histor: drug abuse Past Surgical History: Other Additional Past Surgical Histo: UNKNOWN Smoking Status: Current Every Day Smoker Alcohol Use: None Drug Use: Marijuana, Other General Adult EDM: Chief Complaint: CONSTIPATION HPI: HPI: Patient is a 40 year old male with a history of schizophrenia, hypertension, well-known to this ED who presents today complaining of chronic epigastric abdominal pain on stating he is constipated. He states he has not had a bowel movement today. He states he would like a GI cocktail as well as something to relax his jaw muscles. Review of Systems: Review of Systems: Constitutional: Denies fever or chills. [] Eyes: Denies change in visual acuity. [] HENT: Reports left tight jaw. This is chronic. Denies nasal congestion or sore throat. [] Respiratory: Denies cough or shortness of breath. [] Cardiovascular: Denies chest pain or edema. [] GI: Reports epigastric abdominal pain, constipation. Denies nausea, vomiting, bloody stools or diarrhea. [] : Denies dysuria. [] Musculoskeletal: Denies back pain or joint pain. [] Integument: Denies rash. [] Neurologic: Denies headache, focal weakness or sensory changes. [] [] Psychiatric: Denies depression or anxiety. [] Heart Score: C/O Chest Pain: N/A Risk Factors: Risk Factors: DM, Current or recent (<one month) smoker, HTN, HLP, family history of CAD, obesity. Risk Scores: Score 0 - 3: 2.5% MACE over next 6 weeks - Discharge Home Score 4 - 6: 20.3% MACE over next 6 weeks - Admit for Clinical Observation Score 7 - 10: 72.7% MACE over next 6 weeks - Early Invasive Strategies Current Medications: Current Medications Medications (Trade) Dose Ordered Sig/Hayde Start Time Stop Time Status Last Admin Dose Admin Cyclobenzaprine HCl (Flexeril) 10 mg 1X ONCE 05/09/21 21:30 05/09/21 21:31 05/09/21 21:12 10 MG Multi-Ingredient Mouthwash/Gargle (Gi Cocktail) 20 ml 1X ONCE 05/09/21 21:30 05/09/21 21:31 05/09/21 21:12 20 ML Allergies: Allergies: Allergies Coded Allergies Type Severity Reaction Last Updated Verified No Known Drug Allergies 02/14/17 No Physical Exam: PE: Constitutional: Well developed, well nourished, no acute distress, non-toxic appearance. [] HENT: Normocephalic, atraumatic, bilateral external ears normal, oropharynx moist, no oral exudates, nose normal. [] Eyes: PERRLA, EOMI, conjunctiva normal, no discharge. [] Neck: Normal range of motion, no tenderness, supple, no stridor. [] Cardiovascular:Heart rate regular rhythm, no murmur [] Lungs & Thorax: Bilateral breath sounds clear to auscultation [] Abdomen: Bowel sounds normal, soft, no tenderness, no masses, no pulsatile masses. [] Skin: Warm, dry, no erythema, no rash. [] Back: No tenderness, no CVA tenderness. [] Extremities: No tenderness, no cyanosis, no clubbing, ROM intact, no edema. [] Neurologic: Alert and oriented X 3, normal motor function, normal sensory function, no focal deficits noted. [] Psychologic: Affect normal, judgement normal, mood normal. [] EKG: EKG: [][address] Pizano sinus rhythm heart rate 74 no STEMI [] Radiology/Procedures: Radiology/Procedures: PROCEDURE: ACUTE ABDOMEN SERIES XR ABDOMEN COMP ACUTE History: Reason: chest pain, constipation / Spl. Instructions: / History: Technique: Upright and supine views the abdomen. Comparison: None. Findings: No consolidation or pleural effusion. No pneumothorax. Normal heart size. No pneumoperitoneum. Mild small bowel gas. Air and stool throughout the colon. Moderate proximal colonic stool burden. Impression: 1. Nonobstructed bowel gas pattern. 2. Moderate proximal colonic stool burden. Electronically signed by: Hu Oseguera DO (05/09/2021 10:10 PM) [facility] DICTATED and SIGNED BY: HU OSEGUERA DO DATE: 05/09/[id number] 0 Course & Med Decision Making: Course & Med Decision Making Pertinent Labs and Imaging studies reviewed. (See chart for details) This is a 40-year-old male patient well-known to this ED presenting today complaining of chronic epigastric abdominal pain requesting GI cocktail as well as chronic left jaw tightness and requesting a muscle relaxer. Also states he has not had a bowel movement today. Patient also wants medicine to help increase his hormone levels so he can become more sexually active and get women. Informed him he needs to follow-up with his own primary care doctor for this. Patient was given GI cocktail and cyclobenzaprine. Acute abdominal series noted for constipation. Given mag citrate, Dulcolax p.o. Educated on increasing dietary fiber intake as well as water intake Sharmin Disclaimer: Sharmin Disclaimer: This electronic medical record was generated, in whole or in part, using a voice recognition dictation system. Departure Departure Impression: Primary Impression: GERD (gastroesophageal reflux disease) Qualified Codes: K21.9 - Gastro-esophageal reflux disease without esophagitis Additional Impressions: Chronic jaw pain Constipation Qualified Codes: K59.00 - Constipation, unspecified Disposition: HOME / SELF CARE / HOMELESS Condition: STABLE Referrals: NO PCP (PCP) Follow-up with your primary care doctor in 1 week Patient Instructions: Constipation, Adult, Diet for Gastroesophageal Reflux Disease, Adult, [id number] Additional Instructions: Your x-ray shows a very constipated. Please increase your dietary fiber intake as well as your water intake. Also consider increasing your activity level. You can take MiraLAX every day to help prevent constipation. Also take a stool softener. Anytime you feel constipated consider drinking magnesium citrate. Follow-up with your primary care doctor for medicines to increase your hormone levels sexually Scripts Polyethylene Glycol 3350 (MIRALAX) 119 Gm Powder 17 GM PO DAILY for constipation, #255 GM 0 Refills dissolve in water Prov: YOGESH DIAZ APRN 05/09/21 YOGESH DIAZ APRN May 09, 2021 21:34
--- NOTE | 2021-05-09 22:13 | RAD ---
XR ABDOMEN COMP ACUTE History: Reason: chest pain, constipation / Spl. Instructions: / History: Technique: Upright and supine views the abdomen. Comparison: None. Findings: No consolidation or pleural effusion. No pneumothorax. Normal heart size. No pneumoperitoneum. Mild small bowel gas. Air and stool throughout the colon. Moderate proximal colonic stool burden. Impression: 1. Nonobstructed bowel gas pattern. 2. Moderate proximal colonic stool burden. Electronically signed by: Hu Smith DO (05/09/2021 10:10 PM) [facility]
[2021-05-09] MEDS ORDERED: MAGNESIUM CITRATE 296 ML SOLUTION. PO ONE (22:30)
[2021-05-09] MEDS ORDERED: BISACODYL 5 MG TABLET.DR. PO ONE (22:30)
[2021-05-09] MEDS ORDERED: POLY119P4 PO (22:30)
[2021-05-09] MEDS ORDERED: MULTIVITAMIN with MINERAL TABLET. PO SCH (22:30)
[2021-05-09 22:54] VITALS: BP 132/91
--- NOTE | 2021-05-10 04:22 | EKG ---
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
--- NOTE | 2021-05-22 10:46 | EKG ---
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
== END 2021-05-09 23:00 | disposition home or self-care (01) ==
LOC: ER 20:49
DX: K21.9 Gastro-esophageal reflux disease without esophagitis (principal); K59.00 Constipation, unspecified; G89.29 Other chronic pain; R68.84 Jaw pain; J45.909 Unspecified asthma, uncomplicated; I10 Essential (primary) hypertension; F20.9 Schizophrenia, unspecified; F17.200 Nicotine dependence, unspecified, uncomplicated
CPT/HCPCS: 74022; 93005; 99284

== ENCOUNTER 2021-05-13 05:39 | Emergency (ER) | payer MEDICAID ==
[~2021-05-13] VITALS: Ht 172.7 cm; Wt 101.3 kg
[~2021-05-13 05:39] MED LIST changes: +POLY119P4 PO
--- NOTE | 2021-05-13 06:05 | PHYS DOC ---
Past Medical History Past Medical History: Asthma, Hypertension, Schizophrenia Additional Past Medical Histor: drug abuse Past Surgical History: Other Additional Past Surgical Histo: UNKNOWN Smoking Status: Current Every Day Smoker Alcohol Use: None Drug Use: Marijuana, Other General Adult EDM: Chief Complaint: DENTAL PROBLEM HPI: HPI: Patient is a 40-year-old male well-known to our facility presenting via EMS for gum issues. Patient reports accidentally biting inside of left cheek, " I think it was when I was eating or sleeping". No bleeding, exudates, swelling or other concerning abnormalities. He is requesting antibiotics and a cream to put on his cheek. Has history of poor dentition, does not have an outpatient dentist Review of Systems: Review of Systems: Fourteen body systems of review of systems have been reviewed. See HPI for pertinent positives and negative responses, other jordan all other systems are negative, non-pertinent or non-contributory Heart Score: C/O Chest Pain: No Risk Factors: Risk Factors: DM, Current or recent (<one month) smoker, HTN, HLP, family history of CAD, obesity. Risk Scores: Score 0 - 3: 2.5% MACE over next 6 weeks - Discharge Home Score 4 - 6: 20.3% MACE over next 6 weeks - Admit for Clinical Observation Score 7 - 10: 72.7% MACE over next 6 weeks - Early Invasive Strategies Allergies: Allergies: Allergies Coded Allergies Type Severity Reaction Last Updated Verified No Known Drug Allergies 02/14/17 No Physical Exam: PE: General: Appears well, non toxic, and comfortable Skin: Warm, dry. Normal for ethnicity. Head: Atraumatic. EENT: PERRLA. Moist mucous membranes. Uvula midline. No trismus. Maintaining secretions. No phonation changes. No facial swelling. No periapical abscess. Poor dentition globally with numerous caries none of which appear acutely infected. Patient does have a small superficial irritation to left buccal wall consistent with recent trauma from teeth Neck: Trachea midline. Normal ROM. No stridor. Respiratory: Normal WOB. No tachypnea. Cardiovascular: Normal peripheral perfusion. Musculoskeletal: Normal ROM. Neuro: Alert and oriented x 4. MAEE. Lymph: No cervical LAD. Psych: Odd affect and mood Current Patient Data: Vital Signs: Vital Signs Date Time Temp Pulse Resp B/P (MAP) Pulse Ox O2 Delivery O2 Flow Rate FiO2 05/13/21 05:42 98.3 67 20 150/98 (115) 99 Room Air 98.3 EKG: EKG: [] Radiology/Procedures: Radiology/Procedures: [] Course & Med Decision Making: Course & Med Decision Making ABCs unremarkable. I disclosed entirety of ER findings and discussed most likely diagnosis of a bit cheek. I disclose nonemergent diagnosis and no further need for advanced work-up and/or intervention in ER setting. Supportive care practices advised. I stressed need for close outpatient follow-up to review today's ER visit. Strict return precautions were also discussed at length with good understanding by patient. Patient voiced understanding and agreement with the plan. Patient knows to come back for repeat evaluation if concerning signs or symptoms present prior to outpatient follow-up. Hemodynamically stable, ambulatory and well-appearing at time of disposition. Dragon Disclaimer: Dragon Disclaimer: This electronic medical record was generated, in whole or in part, using a voice recognition dictation system. Departure Departure Impression: Primary Impression: Cheek biting Additional Impression: Anxiety Disposition: HOME / SELF CARE / HOMELESS Condition: STABLE Referrals: NO PCP (PCP) Additional Instructions: As discussed prior to ER departure, your vital signs and physical exam were nonconcerning for any emergent or surgical issues. There is no indication for further diagnostic work-up in ER setting. As disclosed, your symptoms are likely due to biting the inside of your cheek, it is noninfected, there is no indication for any ER intervention and/or need for antibiotics. Continued supp ortive care practices advised with [id number] Tylenol as needed for pain in addition to dental wax which he can put in your mouth to cover irritated lesion. If you continue to be symptomatic following up with a dentist as advised given your chronic poor dentition. If any concerning signs or symptoms present prior to outpatient follow-up please do not hesitate to come back for repeat evaluation. It was a pleasure to take care of you and I wish you the best going forward SUE VARGHESE DO May 13, 2021 06:05
[2021-05-13 06:15] VITALS: BP 146/93
== END 2021-05-13 06:20 | disposition home or self-care (01) ==
LOC: ER 05:39
DX: K13.1 Cheek and lip biting (principal); F41.9 Anxiety disorder, unspecified; J45.909 Unspecified asthma, uncomplicated; I10 Essential (primary) hypertension; F20.9 Schizophrenia, unspecified; F17.200 Nicotine dependence, unspecified, uncomplicated
CPT/HCPCS: 99283

== ENCOUNTER 2021-05-15 17:15 | Emergency (ER) | payer MEDICAID ==
[~2021-05-15] VITALS: Ht 185.4 cm; Wt 100.0 kg
[2021-05-15 20:17] VITALS: BP 177/84
--- NOTE | 2021-05-15 20:27 | PHYS DOC ---
Past Medical History Past Medical History: Asthma, Hypertension, Schizophrenia Additional Past Medical Histor: drug abuse Past Surgical History: No Surgical History Additional Past Surgical Histo: UNKNOWN Smoking Status: Never Smoker Alcohol Use: Rarely Drug Use: Marijuana, Other General Adult EDM: Chief Complaint: DENTAL PROBLEM HPI: HPI: Patient is a 41 year old male with history of schizophrenia, hypertension, asthma, who presents to the ED today requesting triple antibiotic one tube to apply to his head and covarrubias. Patient states the skin is rough. Review of Systems: Review of Systems: Constitutional: Denies fever or chills. [] Musculoskeletal: Denies back pain or joint pain. [] Integument: Rough skin on covarrubias and scalp Neurologic: Denies headache, focal weakness or sensory changes. [] Psychiatric: Denies depression or anxiety. [] Heart Score: C/O Chest Pain: N/A Risk Factors: Risk Factors: DM, Current or recent (<one month) smoker, HTN, HLP, family history of CAD, obesity. Risk Scores: Score 0 - 3: 2.5% MACE over next 6 weeks - Discharge Home Score 4 - 6: 20.3% MACE over next 6 weeks - Admit for Clinical Observation Score 7 - 10: 72.7% MACE over next 6 weeks - Early Invasive Strategies Current Medications: Current Medications Medications (Trade) Dose Ordered Sig/Hayde Start Time Stop Time Status Last Admin Dose Admin Mupirocin (Bactroban) 1 linda 1X STAT 05/15/21 20:21 05/15/21 20:22 UNV Allergies: Allergies: Allergies Coded Allergies Type Severity Reaction Last Updated Verified No Known Drug Allergies 02/14/17 No Physical Exam: PE: Constitutional: Well developed, well nourished, no acute distress, non-toxic appearance. [] Skin: The head and covarrubias were examined, there is no acute findings. Patient was given Bactroban ointment. Warm, dry, no erythema, no rash. [] Back: No tenderness, no CVA tenderness. [] Extremities: No tenderness, no cyanosis, no clubbing, ROM intact, no edema. [] Neurologic: Alert and oriented X 3, normal motor function, normal sensory function, no focal deficits noted. [] Psychologic: Affect normal, judgement normal, mood normal. [] Current Patient Data: Vital Signs: Vital Signs Date Time Temp Pulse Resp B/P (MAP) Pulse Ox O2 Delivery O2 Flow Rate FiO2 05/15/21 20:17 96.4 110 16 177/84 97 Room Air 96.4 EKG: EKG: [] Radiology/Procedures: Radiology/Procedures: [] Course & Med Decision Making: Course & Med Decision Making Pertinent Labs and Imaging studies reviewed. (See chart for details) This is a 41-year-old male patient well-known to this ED presenting today requesting triple antibiotic for his covarrubias and scalp stating the rash. Both areas were examined, there is no roughness, no signs of infection. Bactroban ointment provided. Dragon Disclaimer: Dragon Disclaimer: This electronic medical record was generated, in whole or in part, using a voice recognition dictation system. Departure Departure Impression: Primary Impression: Rough skin Disposition: 01 HOME / SELF CARE / HOMELESS Condition: STABLE Referrals: NO PCP (PCP) follow up with your doctor in 1-2 weeks Patient Instructions: Eczema Additional Instructions: Please use the provided ointment 3 times a day to your scalp and covarrubias. Follow- up with your doctor next week YOGESH DIAZ ERP PROJECT MANAGER May 15, 2021 20:27
[2021-05-15] MEDS ORDERED: MUPIROCIN 2 % NASAL OINTMENT 22GM TUBE. NS ONE (20:30)
== END 2021-05-15 21:22 | disposition home or self-care (01) ==
LOC: ER 17:15
DX: L85.3 Xerosis cutis (principal); I10 Essential (primary) hypertension; J45.909 Unspecified asthma, uncomplicated; F20.9 Schizophrenia, unspecified
CPT/HCPCS: 99282; 99283

== ENCOUNTER 2021-05-23 05:49 | Emergency (ER) | payer MEDICAID ==
[~2021-05-23] VITALS: Ht 175.3 cm; Wt 84.0 kg
[2021-05-23] MEDS ORDERED: OMEP20TA63 PO (06:59)
--- NOTE | 2021-05-23 06:59 | PHYS DOC ---
Past Medical History Past Medical History: Asthma, Hypertension, Schizophrenia Additional Past Medical Histor: drug abuse Past Surgical History: No Surgical History Additional Past Surgical Histo: UNKNOWN Smoking Status: Current Every Day Smoker Alcohol Use: Rarely Drug Use: Marijuana, Other General Adult EDM: Chief Complaint: ALTERED MENTAL STATUS HPI: HPI: Patient is a 41 year old male who presented to ER by EMS due epigastric abdominal cramping after he ate a muffin. Patient feel that he was poisoned. Patient denies any nausea vomiting. Patient is a frequent visitor here to the ED for different medical reason. Patient denies any cough, no fever, no nausea vomiting, no suicidal ideation, no homicide ideation. Patient states he got the muffin from his neighbor. Patient requested GI cocktail for his pain. Review of Systems: Review of Systems: Constitutional: Denies fever or chills. [] Eyes: Denies change in visual acuity. [] HENT: Denies nasal congestion or sore throat. [] Respiratory: Denies cough or shortness of breath. [] Cardiovascular: Denies chest pain or edema. [] GI: Positive for mild abdominal cramping, no nausea, vomiting, bloody stools or diarrhea. [] : Denies dysuria. [] Musculoskeletal: Denies back pain or joint pain. [] Integument: Denies rash. [] Neurologic: Denies headache, focal weakness or sensory changes. [] Endocrine: Denies polyuria or polydipsia. [] Lymphatic: Denies swollen glands. [] Psychiatric: Denies depression or anxiety. [] Heart Score: C/O Chest Pain: N/A Risk Factors: Risk Factors: DM, Current or recent (<one month) smoker, HTN, HLP, family history of CAD, obesity. Risk Scores: Score 0 - 3: 2.5% MACE over next 6 weeks - Discharge Home Score 4 - 6: 20.3% MACE over next 6 weeks - Admit for Clinical Observation Score 7 - 10: 72.7% MACE over next 6 weeks - Early Invasive Strategies Current Medications: Current Medications Medications (Trade) Dose Ordered Sig/Hayde Start Time Stop Time Status Last Admin Dose Admin Multi-Ingredient Mouthwash/Gargle (Gi Cocktail) 20 ml 1X ONCE 05/23/21 07:00 05/23/21 07:01 05/23/21 06:49 20 ML Allergies: Allergies: Allergies Coded Allergies Type Severity Reaction Last Updated Verified No Known Drug Allergies 02/14/17 No Physical Exam: PE: Constitutional: Well developed, well nourished, no acute distress, non-toxic appearance. [] HENT: Normocephalic, atraumatic, bilateral external ears normal, oropharynx moist, no oral exudates, nose normal. [] Eyes: PERRLA, EOMI, conjunctiva normal, no discharge. [] Neck: Normal range of motion, no tenderness, supple, no stridor. [] Cardiovascular:Heart rate regular rhythm, no murmur [] Lungs & Thorax: Bilateral breath sounds clear to auscultation [] Abdomen: Bowel sounds normal, soft, no tenderness, no masses, no pulsatile masses. [] Skin: Warm, dry, no erythema, no rash. [] Back: No tenderness, no CVA tenderness. [] Extremities: No tenderness, no cyanosis, no clubbing, ROM intact, no edema. [] Neurologic: Alert and oriented X 3, normal motor function, normal sensory function, no focal deficits noted. [] Psychologic: Affect normal, judgement normal, mood normal. [] Current Patient Data: Vital Signs: Vital Signs Date Time Temp Pulse Resp B/P (MAP) Pulse Ox O2 Delivery O2 Flow Rate FiO2 05/23/21 05:50 98.7 86 20 104/78 (115) 99 Room Air 98.7 EKG: EKG: [] Radiology/Procedures: Radiology/Procedures: [] Course & Med Decision Making: Course & Med Decision Making Pertinent Labs and Imaging studies reviewed. (See chart for details) [] Dragon Disclaimer: Sharmin Disclaimer: This electronic medical record was generated, in whole or in part, using a voice recognition dictation system. Departure Departure Impression: Primary Impression: Gastritis Disposition: HOME / SELF CARE / HOMELESS Condition: STABLE Referrals: NO PCP (PCP) Please follow up with [facility] this week. [address], [address] [place] [address] Phone number: [phone] Patient Instructions: Gastritis, Adult Additional Instructions: Thank you for visiting our Emergency Department. We appreciate you trusting us with your care. If any additional problems come up don't hesitate to return to visit us. Please follow up with your primary care provider so they can plan additional care if needed and know about the problem that you had. If symptoms worsen come back to the Emergency Department. Any concerning symptoms that start such as chest pain, shortness of air, weakness or numbness on one side of the body, running high fevers or any other concerning symptoms return to the ER. Scripts Omeprazole Magnesium (PRILOSEC OTC) 20 Mg Tablet.dr 1 TAB PO DAILY for 30 Days, #30 TAB 0 Refills Prov: MINH PHILIPPE DO 05/23/21 MINH PHILIPPE DO May 23, 2021 06:59
[2021-05-23] MEDS ORDERED: LIDO:MAALOX 1:1 20 ML SINGLE DOSE. SWSW ONE (07:00)
[2021-05-23 07:09] VITALS: BP 158/90
== END 2021-05-23 07:09 | disposition home or self-care (01) ==
LOC: ER 05:49
DX: K29.70 Gastritis, unspecified, without bleeding (principal); I10 Essential (primary) hypertension; F20.9 Schizophrenia, unspecified; J45.909 Unspecified asthma, uncomplicated; F17.200 Nicotine dependence, unspecified, uncomplicated
CPT/HCPCS: 99283

== ENCOUNTER 2021-05-28 23:04 | Emergency (ER) | payer MEDICAID ==
[~2021-05-28] VITALS: Ht 177.8 cm; Wt 100.0 kg
[~2021-05-28 23:04] MED LIST changes: +OMEP20TA63 PO
[2021-05-28 23:26] VITALS: BP 147/91
[2021-05-28] MEDS ORDERED: LIDO:MAALOX 1:1 20 ML SINGLE DOSE. PO PRN (23:30)
--- NOTE | 2021-05-28 23:37 | PHYS DOC ---
Past Medical History Past Medical History: Asthma, Hypertension, Schizophrenia Additional Past Medical Histor: drug abuse Past Surgical History: No Surgical History Additional Past Surgical Histo: UNKNOWN Smoking Status: Current Every Day Smoker Alcohol Use: Rarely Drug Use: Marijuana, Other General Adult EDM: Chief Complaint: HEARTBURN/GI DISTRESS HPI: HPI: Patient is a 41 year old male with developmental delays presents with a chief complaint of abdominal pain. Patient called 911 wanted to be evaluated. Patient ambulated into the ER from the ambulance. Patient requesting a GI cocktail. Patient states he wants a GI cocktail so people love him. Patient patient is a frequent visitor to this ER with similar complaints. Patient always requests GI cocktail. Patient is in no acute distress. Patient's vital signs are stable. Patient treated with a GI cocktail as requested. Patient discharged home. Review of Systems: Review of Systems: Review of systems: Constitutional symptoms- No fever, no chills. Eyes- No Discharge, No Visual Loss Respiratory symptoms- No shortness of breath, No wheezing, No Dyspnea on Exertion Cardiovascular Systems; No chest pain, No Palpitations, No syncope Gastrointestinal symptoms: NO abdominal pain, no nausea, no vomiting or diarrhea. Genitourinary symptoms: No dysuria. Musculoskeletal symptoms: No back pain No extremity pain. NEUROLOGICAL Symptoms: No headache, no generalized weakness; No focal Weakness Skin: No rash. Heart Score: C/O Chest Pain: N/A Risk Factors: Risk Factors: DM, Current or recent (<one month) smoker, HTN, HLP, family history of CAD, obesity. Risk Scores: Score 0 - 3: 2.5% MACE over next 6 weeks - Discharge Home Score 4 - 6: 20.3% MACE over next 6 weeks - Admit for Clinical Observation Score 7 - 10: 72.7% MACE over next 6 weeks - Early Invasive Strategies Current Medications: Current Medications Medications (Trade) Dose Ordered Sig/Hayde Start Time Stop Time Status Last Admin Dose Admin Multi-Ingredient Mouthwash/Gargle (Gi Cocktail) 20 ml PRN QID PRN 05/28/21 23:30 Allergies: Allergies: Allergies Coded Allergies Type Severity Reaction Last Updated Verified No Known Drug Allergies 02/14/17 No Physical Exam: PE: Constitutional: Well developed, well nourished, no acute distress, non-toxic appearance. [] HENT: Normocephalic, atraumatic, bilateral external ears normal, oropharynx moist, no oral exudates, nose normal. [] Eyes: PERRLA, EOMI, conjunctiva normal, no discharge. [] Neck: Normal range of motion, no tenderness, supple, no stridor. [] Cardiovascular:Heart rate regular rhythm, no murmur [] Lungs & Thorax: Bilateral breath sounds clear to auscultation [] Abdomen: Bowel sounds normal, soft, no tenderness, no masses, no pulsatile masses. [] Skin: Warm, dry, no erythema, no rash. [] Back: No tenderness, no CVA tenderness. [] Extremities: No tenderness, no cyanosis, no clubbing, ROM intact, no edema. [] Neurologic: Alert and oriented X 3, normal motor function, normal sensory function, no focal deficits noted. [] Psychologic: Affect normal, judgement normal, mood normal. [] EKG: EKG: [] Radiology/Procedures: Radiology/Procedures: [] Course & Med Decision Making: Course & Med Decision Making Pertinent Labs and Imaging studies reviewed. (See chart for details) [] Dragon Disclaimer: Dragon Disclaimer: This electronic medical record was generated, in whole or in part, using a voice recognition dictation system. Departure Departure Impression: Primary Impression: GERD (gastroesophageal reflux disease) Additional Impression: Dyspepsia Disposition: 01 HOME / SELF CARE / HOMELESS Condition: STABLE Referrals: NO PCP (PCP) Patient Instructions: Gastroesophageal Reflux Disease, Adult JENNIFER MCGRAW DO May 28, 2021 23:37
== END 2021-05-29 00:05 | disposition home or self-care (01) ==
LOC: ER 23:04
DX: K21.9 Gastro-esophageal reflux disease without esophagitis (principal); J45.909 Unspecified asthma, uncomplicated; I10 Essential (primary) hypertension; F20.9 Schizophrenia, unspecified; F17.200 Nicotine dependence, unspecified, uncomplicated
CPT/HCPCS: 99283

== ENCOUNTER 2021-05-30 21:20 | Emergency (ER) | payer MEDICAID ==
[~2021-05-30] VITALS: Ht 172.7 cm; Wt 104.9 kg
[2021-05-30 22:10] VITALS: BP 112/76
[2021-05-31] MEDS ORDERED: LIDO:MAALOX 1:1 20 ML SINGLE DOSE. SWSW ONE (01:00)
[2021-05-31] MEDS ORDERED: ACETAMINOPHEN 325 MG TABLET. PO ONE (01:15)
--- NOTE | 2021-05-31 01:19 | PHYS DOC ---
Past Medical History Past Medical History: Asthma, Hypertension, Schizophrenia Additional Past Medical Histor: drug abuse Past Surgical History: No Surgical History Additional Past Surgical Histo: UNKNOWN Smoking Status: Never Smoker Alcohol Use: None Drug Use: Marijuana, Other General Adult EDM: Chief Complaint: HEADACHE HPI: HPI: Patient is a 41 year old male resents with a chief complaint of headache. Patient states headache is been ongoing all day. At the time my examination patient states headache is improved but he is requesting aspirin. Patient also is requesting GI cocktail. Patient states he would like GI cocktail to be strong so people would love him and like him. Patient is known to me. Patient frequents ER regularly with similar complaints. On my exam patient is in no acute distress. Review of Systems: Review of Systems: Constitutional: Denies fever or chills. [] Eyes: Denies change in visual acuity. [] HENT: Denies nasal congestion or sore throat. [] Respiratory: Denies cough or shortness of breath. [] Cardiovascular: Denies chest pain or edema. [] GI: Denies abdominal pain, nausea, vomiting, bloody stools or diarrhea. [] : Denies dysuria. [] Musculoskeletal: Denies back pain or joint pain. [] Integument: Denies rash. [] Neurologic: Positive headache, denies focal weakness or sensory changes. [] Endocrine: Denies polyuria or polydipsia. [] Lymphatic: Denies swollen glands. [] Psychiatric: Denies depression or anxiety. [] Heart Score: C/O Chest Pain: N/A Risk Factors: Risk Factors: DM, Current or recent (<one month) smoker, HTN, HLP, family history of CAD, obesity. Risk Scores: Score 0 - 3: 2.5% MACE over next 6 weeks - Discharge Home Score 4 - 6: 20.3% MACE over next 6 weeks - Admit for Clinical Observation Score 7 - 10: 72.7% MACE over next 6 weeks - Early Invasive Strategies Current Medications: Current Medications Medications (Trade) Dose Ordered Sig/Hayde Start Time Stop Time Status Last Admin Dose Admin Acetaminophen (Tylenol) 650 mg 1X ONCE 05/31/21 01:15 05/31/21 01:16 Multi-Ingredient Mouthwash/Gargle (Gi Cocktail) 20 ml 1X ONCE 05/31/21 01:00 05/31/21 01:01 DC Allergies: Allergies: Allergies Coded Allergies Type Severity Reaction Last Updated Verified No Known Drug Allergies 02/14/17 No Physical Exam: PE: Constitutional: Well developed, well nourished, no acute distress, non-toxic appearance. [] HENT: Normocephalic, atraumatic, bilateral external ears normal, oropharynx mois t, no oral exudates, nose normal. [] Eyes: PERRLA, EOMI, conjunctiva normal, no discharge. [] Neck: Normal range of motion, no tenderness, supple, no stridor. [] Cardiovascular:Heart rate regular rhythm, no murmur [] Lungs & Thorax: Bilateral breath sounds clear to auscultation [] Abdomen: Bowel sounds normal, soft, no tenderness, no masses, no pulsatile masses. [] Skin: Warm, dry, no erythema, no rash. [] Back: No tenderness, no CVA tenderness. [] Extremities: No tenderness, no cyanosis, no clubbing, ROM intact, no edema. [] Neurologic: Alert and oriented X 3, normal motor function, normal sensory function, no focal deficits noted. [] Psychologic: Affect normal, judgement normal, mood normal. [] Current Patient Data: Vital Signs: Vital Signs Date Time Temp Pulse Resp B/P (MAP) Pulse Ox O2 Delivery O2 Flow Rate FiO2 05/30/21 22:10 98.2 77 16 112/76 (112) 99 Room Air 98.2 EKG: EKG: [] Radiology/Procedures: Radiology/Procedures: [] Course & Med Decision Making: Course & Med Decision Making Pertinent Labs and Imaging studies reviewed. (See chart for details) [] Patient was treated with Tylenol and GI cocktail. He was observed. Patient without any neurological deficits. Patient's mental status at baseline. No focal weakness patient ambulated with a steady gait. No signs and symptoms of meningitis. Patient discharged home. Darriuson Disclaimer: Sharmin Disclaimer: This electronic medical record was generated, in whole or in part, using a voice recognition dictation system. Departure Departure Impression: Primary Impression: Headache Disposition: HOME / SELF CARE / HOMELESS Condition: STABLE Referrals: NO PCP (PCP) Patient Instructions: Headache, FAQs JENNIFER MCGRAW I DO May 31, 2021 01:19
== END 2021-05-31 01:36 | disposition home or self-care (01) ==
LOC: ER 21:20
DX: R51.9 Headache, unspecified (principal); I10 Essential (primary) hypertension; J45.909 Unspecified asthma, uncomplicated; F20.9 Schizophrenia, unspecified
CPT/HCPCS: 99283

== ENCOUNTER 2021-06-04 11:10 | Emergency (ER) | payer MEDICAID | END 2021-06-04 15:28 | disposition left against medical advice (07) | LOC: ER 11:10 | DX: R10.9 Unspecified abdominal pain (principal); Z53.21 Procedure and treatment not carried out due to patient leaving prior to being seen by health care provider ==

== ENCOUNTER 2021-06-07 22:33 | Emergency (ER) | payer MEDICAID | END 2021-06-08 | disposition left against medical advice (07) | LOC: ER 22:33 | DX: R11.2 Nausea with vomiting, unspecified (principal); R19.7 Diarrhea, unspecified; Z53.21 Procedure and treatment not carried out due to patient leaving prior to being seen by health care provider ==

== ENCOUNTER 2021-06-11 14:24 | Emergency (ER) | payer MEDICAID | END 2021-06-11 18:00 | disposition left against medical advice (07) | LOC: ER 14:24 | DX: R44.0 Auditory hallucinations (principal); Z53.21 Procedure and treatment not carried out due to patient leaving prior to being seen by health care provider ==

== ENCOUNTER 2021-06-13 02:43 | Emergency (ER) | payer MEDICAID ==
[~2021-06-13] VITALS: Ht 172.7 cm; Wt 91.0 kg
[2021-06-13 02:50] VITALS: BP 141/88
--- NOTE | 2021-06-13 02:52 | ED.ADGEN ---
Past Medical History Past Medical History: Asthma, Hypertension, Schizophrenia Additional Past Medical Histor: drug abuse Past Surgical History: No Surgical History Additional Past Surgical Histo: UNKNOWN Smoking Status: Never Smoker Alcohol Use: None Drug Use: Marijuana, Other General Adult EDM: Chief Complaint: ABDOMINAL PAIN HPI: HPI: Patient is a 41 year old male coming in via EMS for epigastric pain. Patient also states that old coughing but had a small amount of blood-streaked mucus. Patient has a history for numerous ED visits for similar complaints. Patient states he does not take any antacid medications for his GERD because he says they "do not work". Review of Systems: Review of Systems: All other systems within normal limits except for as noted in the HPI Current Medications: Current Medications Medications (Trade) Dose Ordered Sig/Hayde Start Time Stop Time Status Last Admin Dose Admin Multi-Ingredient Mouthwash/Gargle (Gi Cocktail) 20 ml 1X ONCE 06/13/21 03:00 06/13/21 03:01 DC 06/13/21 03:09 20 ML Allergies: Allergies: Allergies Coded Allergies Type Severity Reaction Last Updated Verified No Known Drug Allergies 02/14/17 No Physical Exam: PE: Constitutional: Well developed, well nourished, no acute distress, non-toxic appearance. [] HENT: Normocephalic, atraumatic, bilateral external ears normal, nose normal. [] Eyes: PERRLA, conjunctiva normal, no discharge. [] Neck: No rigidity, supple, no stridor. [] Cardiovascular: Regular rate and rhythm, brisk cap refill [] Lungs & Thorax: Non labored symmetric respirations, no tachypnea or respiratory distress [] Abdomen: Soft, nondistended. Skin: Warm, dry, no erythema, no rash. [] Back: Unremarkable Extremities: No deformities, range of motion grossly intact, no lower extremity edema [] Neurologic: Alert and oriented X 3, no focal deficits noted. [] Psychologic: Affect normal, judgement normal, mood normal. [] Current Patient Data: Vital Signs: Vital Signs Date Time Temp Pulse Resp B/P (MAP) Pulse Ox O2 Delivery O2 Flow Rate FiO2 06/13/21 02:50 97.9 73 16 141/88 (112) 98 Room Air 97.9 EKG: EKG: [] Heart Score: C/O Chest Pain: No Risk Factors: Risk Factors: DM, Current or recent (<one month) smoker, HTN, HLP, family histo ry of CAD, obesity. Risk Scores: Score 0 - 3: 2.5% MACE over next 6 weeks - Discharge Home Score 4 - 6: 20.3% MACE over next 6 weeks - Admit for Clinical Observation Score 7 - 10: 72.7% MACE over next 6 weeks - Early Invasive Strategies Radiology/Procedures: Radiology/Procedures: EP interpretation: Acute abdomen series unremarkable [] Course & Med Decision Making: Course & Med Decision Making Pertinent Labs and Imaging studies reviewed. (See chart for details) [] Dragon Disclaimer: Dragon Disclaimer: This electronic medical record was generated, in whole or in part, using a voice recognition dictation system. Departure Departure Impression: Primary Impression: GERD (gastroesophageal reflux disease) Disposition: HOME / SELF CARE / HOMELESS Condition: STABLE Referrals: NO PCP (PCP) Patient Instructions: Gastroesophageal Reflux Disease, Adult Additional Instructions: Avoid spicy, acidic foods, and alcohol. Take omeprazole every day. Take Carafate 1 to 2 hours before or after any other medications. Up with your primary care for possible GI consult. Scripts Omeprazole (OMEPRAZOLE) 40 Mg Capsule. 1 CAP PO DAILY for antacid, #30 CAP 3 Refills Prov: KURT GARCIA MD 06/13/21 Sucralfate (SUCRALFATE) 1 Gm Tablet 1 TAB PO TID PRN for ABDOMINAL PAIN for 10 Days, #30 TAB 11 Refills Prov: KURT GARCIA MD 06/13/21 KURT GARCIA MD Jun 13, 2021 02:52
[2021-06-13] MEDS ORDERED: LIDO:MAALOX 1:1 20 ML SINGLE DOSE. SWSW ONE (03:00)
[2021-06-13] MEDS ORDERED: SUCR1TAB PO (03:22)
[2021-06-13] MEDS ORDERED: OMEP40CA7 PO (03:22)
--- NOTE | 2021-06-13 05:10 | RAD ---
EXAM: 2 VIEW ABDOMEN WITH ONE VIEW CHEST. HISTORY: Epigastric pain. COMPARISON: 05/09/2021. FINDINGS: A frontal view of the chest and supine/upright views of the abdomen are obtained. There are no confluent infiltrates. There is no pneumothorax or pleural effusion. The heart is not en larged. There is no pneumoperitoneum. There are no distended small bowel loops or significant air-fluid level s. There is gas distally. IMPRESSION: 1. No confluent infiltrates. 2. No evidence of obstruction. Electronically signed by: Yvette Appiah MD (06/13/2021 5:08 AM) [facility]
== END 2021-06-13 03:29 | disposition home or self-care (01) ==
LOC: ER 02:43
DX: K21.9 Gastro-esophageal reflux disease without esophagitis (principal); J45.909 Unspecified asthma, uncomplicated; I10 Essential (primary) hypertension; F20.9 Schizophrenia, unspecified
CPT/HCPCS: 74022; 99283

== ENCOUNTER 2021-06-22 00:51 | Emergency (ER) | payer MEDICAID ==
[~2021-06-22] VITALS: Ht 167.6 cm; Wt 100.0 kg
[~2021-06-22 00:51] MED LIST changes: +SUCR1TAB PO
[2021-06-22 01:48] VITALS: BP 138/89
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
[2021-06-22] MEDS ORDERED: LIDO:MAALOX 1:1 20 ML SINGLE DOSE. SWSW ONE (05:00)
[2021-06-22] MEDS ORDERED: LIDO:MAALOX 1:1 20 ML SINGLE DOSE. ONE (05:01)
== END 2021-06-22 05:04 | disposition home or self-care (01) ==
LOC: ER 00:51
DX: R10.9 Unspecified abdominal pain (principal); F17.200 Nicotine dependence, unspecified, uncomplicated; Z71.1 Person with feared health complaint in whom no diagnosis is made; J45.909 Unspecified asthma, uncomplicated; I10 Essential (primary) hypertension; F20.9 Schizophrenia, unspecified
CPT/HCPCS: 99282

== ENCOUNTER 2021-06-30 01:23 | Emergency (ER) | payer MEDICAID ==
[~2021-06-30] VITALS: Ht 172.7 cm; Wt 90.9 kg
[2021-06-30 01:23] VITALS: BP 120/73
--- NOTE | 2021-06-30 01:46 | PHYS DOC ---
Past Medical History Past Medical History: Asthma, Hypertension, Schizophrenia Additional Past Medical Histor: drug abuse Past Surgical History: No Surgical History Additional Past Surgical Histo: UNKNOWN Smoking Status: Current Every Day Smoker Alcohol Use: None Drug Use: Marijuana, Other General Adult EDM: Chief Complaint: ABDOMINAL PAIN HPI: HPI: Patient is a 41 year old [f__sex] who presents with [] Review of Systems: Review of Systems: Constitutional: Denies fever or chills Eyes: Denies redness or eye pain HENT: Denies nasal congestion or sore throat Respiratory: Denies cough or shortness of breath Cardiovascular: Denies chest pain or palpitations GI: Denies abdominal pain, nausea, or vomiting : Denies dysuria or hematuria Musculoskeletal: Denies back pain or joint pain Integument: Denies rash or skin lesions Neurologic: Denies headache, focal weakness or sensory changes Complete systems were reviewed and found to be within normal limits, except as documented in this note. Heart Score: C/O Chest Pain: N/A Allergies: Allergies: Allergies Coded Allergies Type Severity Reaction Last Updated Verified No Known Drug Allergies 02/14/17 No Physical Exam: PE: Constitutional: Well developed, well nourished, no acute distress, non-toxic appearance HENT: Normocephalic, atraumatic Eyes: PERRL, EOMI, conjunctiva normal, no discharge Neck: Normal range of motion, no tenderness, supple Lungs & Thorax: No respiratory distress, equal chest rise and fall Abdomen: Soft, no tenderness Skin: Warm, dry, no erythema, no rash Back: No tenderness, no CVA tenderness Extremities: No tenderness, ROM intact, no edema Neurologic: Alert and oriented X 3, normal motor function, normal sensory function, no focal deficits noted Psychologic: Affect normal, judgment normal EKG: EKG: [] Radiology/Procedures: Radiology/Procedures: [] Course & Med Decision Making: Course & Med Decision Making Pertinent Labs and Imaging studies reviewed. (See chart for details) Patient stable for discharge with outpatient follow-up with PCP/GI. GI referral provided. Discussed findings and plan with patient, who acknowledges understanding and agreement. Sharmin Disclaimer: [employer] Disclaimer: This electronic medical record was generated, in whole or in part, using a voice recognition dictation system. Departure Departure Impression: Primary Impression: Chronic abdominal pain Additional Impression: Encounter for medical screening examination Disposition: HOME / SELF CARE / HOMELESS Condition: STABLE Referrals: NO PCP (PCP) Patient Instructions: Chronic Pain, Chronic Pain Management, Medical Screening Exam Additional Instructions: Please follow with your doctor regarding your chronic conditions. The Emergency Department is not the appropriate facility to be treated for your chronic pain. You have been seen in our facility 32 times in 2020. You have been given a referral for a GI specialist and a list of current clinics that you can follow with. Please call them to be seen and evaluated. EVA MONSIVAIS DO Jun 30, 2021 01:46
== END 2021-06-30 02:01 | disposition home or self-care (01) ==
LOC: ER 01:23
DX: G89.29 Other chronic pain (principal); R10.10 Upper abdominal pain, unspecified; J45.909 Unspecified asthma, uncomplicated; I10 Essential (primary) hypertension; F20.9 Schizophrenia, unspecified; F17.200 Nicotine dependence, unspecified, uncomplicated
CPT/HCPCS: 99283

== ENCOUNTER 2021-07-14 00:27 | Emergency (ER) | payer MEDICAID ==
[~2021-07-14] VITALS: Ht 172.7 cm; Wt 91.0 kg
[2021-07-14 00:30] VITALS: BP 131/66
[2021-07-14] MEDS ORDERED: FAMO-63 PO (00:33)
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
[2021-07-14] MEDS ORDERED: LIDO:MAALOX 1:1 20 ML SINGLE DOSE. PO ONE (00:45)
== END 2021-07-14 00:39 | disposition home or self-care (01) ==
LOC: ER 00:27
DX: G89.29 Other chronic pain (principal); R10.13 Epigastric pain; K21.9 Gastro-esophageal reflux disease without esophagitis; J45.909 Unspecified asthma, uncomplicated; I10 Essential (primary) hypertension; F20.9 Schizophrenia, unspecified; F17.200 Nicotine dependence, unspecified, uncomplicated
CPT/HCPCS: 99282; 99283

== ENCOUNTER 2021-08-11 04:01 | Emergency (ER) | payer MEDICAID ==
[~2021-08-11] VITALS: Ht 172.7 cm; Wt 100.0 kg
[2021-08-11] MEDS ORDERED: LIDO:MAALOX 1:1 20 ML SINGLE DOSE. SWSW ONE (04:15)
--- NOTE | 2021-08-11 04:29 | PHYS DOC ---
Past Medical History Past Medical History: Asthma, GERD, Hypertension, Schizophrenia Additional Past Medical Histor: drug abuse, mental handicap Past Surgical History: No Surgical History Smoking Status: Current Every Day Smoker Alcohol Use: None Drug Use: Marijuana, Other General Adult EDM: Chief Complaint: GI PROBLEM HPI: HPI: Patient is a 41 year old male who was brought here by EMS from home due to epigastric abdominal pain. Patient is well-known to this department and this physician. Patient has been evaluated here multiple times for the same problem. Patient normally come here and ask for GI cocktail and he will go home. Patient denies any nausea vomiting. Patient denies any cough or fever. Patient denies any chest pain or any trouble breathing Review of Systems: Review of Systems: Constitutional: Denies fever or chills. [] Eyes: Denies change in visual acuity. [] HENT: Denies nasal congestion or sore throat. [] Respiratory: Denies cough or shortness of breath. [] Cardiovascular: Denies chest pain or edema. [] GI: Positive for epigastric abdominal pain, no nausea vomiting, no diarrhea : Denies dysuria. [] Musculoskeletal: Denies back pain or joint pain. [] Integument: Denies rash. [] Neurologic: Denies headache, focal weakness or sensory changes. [] Endocrine: Denies polyuria or polydipsia. [] Lymphatic: Denies swollen glands. [] Psychiatric: Denies depression or anxiety. [] Heart Score: C/O Chest Pain: N/A Risk Factors: Risk Factors: DM, Current or recent (<one month) smoker, HTN, HLP, family history of CAD, obesity. Risk Scores: Score 0 - 3: 2.5% MACE over next 6 weeks - Discharge Home Score 4 - 6: 20.3% MACE over next 6 weeks - Admit for Clinical Observation Score 7 - 10: 72.7% MACE over next 6 weeks - Early Invasive Strategies Current Medications: Current Medications Medications (Trade) Dose Ordered Sig/Hayde Start Time Stop Time Status Last Admin Dose Admin Multi-Ingredient Mouthwash/Gargle (Gi Cocktail) 20 ml 1X ONCE 08/11/21 04:15 08/11/21 04:16 DC Allergies: Allergies: Allergies Coded Allergies Type Severity Reaction Last Updated Verified No Known Drug Allergies 02/14/17 No Physical Exam: PE: Constitutional: Well developed, well nourished, no acute distress, non-toxic appearance. [] HENT: Normocephalic, atraumatic, bilateral external ears normal, oropharynx moist, no oral exudates, nose normal. [] Eyes: PERRLA, EOMI, conjunctiva normal, no discharge. [] Neck: Normal range of motion, no tenderness, supple, no stridor. [] Cardiovascular:Heart rate regular rhythm, no murmur [] Lungs & Thorax: Bilateral breath sounds clear to auscultation [] Abdomen: Bowel sounds normal, soft, no tenderness, no masses, no pulsatile masses. [] Skin: Warm, dry, no erythema, no rash. [] Back: No tenderness, no CVA tenderness. [] Extremities: No tenderness, no cyanosis, no clubbing, ROM intact, no edema. [] Neurologic: Alert and oriented X 3, normal motor function, normal sensory function, no focal deficits noted. [] Psychologic: Affect normal, judgement normal, mood normal. [] Current Patient Data: Vital Signs: Vital Signs Date Time Temp Pulse Resp B/P (MAP) Pulse Ox O2 Delivery O2 Flow Rate FiO2 08/11/21 04:10 98.1 87 18 142/83 (102) 100 98.1 EKG: EKG: [] Radiology/Procedures: Radiology/Procedures: [] Course & Med Decision Making: Course & Med Decision Making Pertinent Labs and Imaging studies reviewed. (See chart for details) Patient is a 41-year-old male who was brought here by EMS from home due to chronic epigastric abdominal pain. Patient was given GI cocktail in the ER, he feels much better. There is no further work-up needed at this time. Dragon Disclaimer: Dragon Disclaimer: This electronic medical record was generated, in whole or in part, using a voice recognition dictation system. Departure Departure Impression: Primary Impression: Chronic abdominal pain Disposition: HOME / SELF CARE / HOMELESS Condition: STABLE Referrals: NO PCP (PCP) Please follow up with [facility] this week. [address], [address] [place] [address] Phone number: [phone] Patient Instructions: Abdominal Pain (Nonspecific) Additional Instructions: Thank you for visiting our Emergency Department. We appreciate you trusting us with your care. If any additional problems come up don't hesitate to return to visit us. Please follow up with your primary care provider so they can plan additional care if needed and know about the problem that you had. If symptoms worsen come back to the Emergency Department. Any concerning symptoms that start such as chest pain, shortness of air, weakness or numbness on one side of the body, running high fevers or any other concerning symptoms return to the ER. MINH PHILIPPE DO Aug 11, 2021 04:29
[2021-08-11 05:00] VITALS: BP 118/69
== END 2021-08-11 05:20 | disposition home or self-care (01) ==
LOC: ER 04:01
DX: R10.13 Epigastric pain (principal); G89.29 Other chronic pain; K21.9 Gastro-esophageal reflux disease without esophagitis; J45.909 Unspecified asthma, uncomplicated; I10 Essential (primary) hypertension; F20.9 Schizophrenia, unspecified; F17.200 Nicotine dependence, unspecified, uncomplicated
CPT/HCPCS: 99283

== ENCOUNTER 2021-08-13 12:55 | Emergency (ER) | payer MEDICAID ==
[~2021-08-13] VITALS: Ht 172.7 cm; Wt 95.4 kg
[2021-08-13 13:25] LABS: BASO % 1 % (0-3); EOS # 0.1 x10^3/uL (0.0-0.7); EOS % 1 % (0-3); HEMATOCRIT 43.5 % (39.0-53.0); LYMPH # 2.4 x10^3/uL (1.0-4.8); LYMPH % 37 % (24-48); MEAN CORPUSCULAR HEMOGLOBIN 31 pg (25-35); MEAN CORPUSCULAR HGB CONC 35 g/dL (31-37); MEAN CORPUSCULAR VOLUME 90 fL (79-100); MONO # 0.6 x10^3/uL (0.0-1.1); MONO % 9 % (0-9); NEUT # 3.3 x10^3/uL (1.8-7.7); NEUT % 51 % (31-73); PLATELET COUNT 256 x10^3/uL (140-400); RED BLOOD COUNT 4.82 x10^6/uL (4.30-5.70); RED CELL DISTRIBUTION WIDTH 12.9 % (11.5-14.5); WHITE BLOOD COUNT 6.4 x10^3/uL (4.0-11.0)
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
[2021-08-13 13:40] LABS: CALCIUM 9.1 mg/dL (8.5-10.1); CREATININE 0.9 mg/dL (0.7-1.3); GFR 113.7; POTASSIUM 3.7 mmol/L (3.5-5.1)
[2021-08-13 13:45] LABS: SALIC 2.9 mg/dL (2.8-20.0)
[2021-08-13 13:46] LABS: ACETAMIN < 2 mcg/ml (10-30); ALBUMIN/GLOBULIN RATIO 1.3 (1.0-1.7); TOTAL BILIRUBIN 0.3 mg/dL (0.2-1.0); TOTAL PROTEIN 7.1 g/dL (6.4-8.2)
[2021-08-13 13:47] LABS: ETHANOL < 10 mg/dL (0-10)
[2021-08-13 14:37] LABS: BARBITURATES NEG (NEG); BENZODIAZEPINES NEG (NEG); CANNABINOIDS POS (NEG); COCAINE NEG (NEG); METHADONE NEG (NEG); OPIATES NEG (NEG); PHENCYCLIDINE POS (NEG)
[2021-08-13 14:39] LABS: AMPHETAMINE/METHAMPHETAMINE NEG (NEG)
[2021-08-13 16:32] VITALS: BP 148/87
== END 2021-08-13 16:40 | disposition home or self-care (01) ==
LOC: ER 12:55
DX: R44.0 Auditory hallucinations (principal); Z20.822 Contact with and (suspected) exposure to COVID-19; R44.1 Visual hallucinations; F16.10 Hallucinogen abuse, uncomplicated; J45.909 Unspecified asthma, uncomplicated; K21.9 Gastro-esophageal reflux disease without esophagitis; I10 Essential (primary) hypertension; F17.200 Nicotine dependence, unspecified, uncomplicated
CPT/HCPCS: 36415; 80053; 80307; 80329; 85025; 87426; 99283; G0480; U0003; U0005

== ENCOUNTER 2021-08-15 04:06 | Emergency (ER) | payer MEDICAID ==
[~2021-08-15] VITALS: Ht 188 cm; Wt 100.0 kg
[2021-08-15 07:25] VITALS: BP 132/66
--- NOTE | 2021-08-15 07:47 | PHYS DOC ---
Past Medical History Past Medical History: Asthma, GERD, Hypertension, Schizophrenia Additional Past Medical Histor: SUBSTANCE ABUSE Past Surgical History: No Surgical History Additional Past Surgical Histo: UNKNOWN Smoking Status: Current Every Day Smoker Alcohol Use: Heavy Drug Use: Marijuana, Other General Adult EDM: Chief Complaint: PSYCH EVALUATION HPI: HPI: Patient is a 41 year old male who was brought here by EMS from home due for medical evaluation. Patient is well-known to this department and this physici an. Patient has been evaluated here multiple times for different problems. Patient normally come here and ask for GI cocktail and he will go home. Patient denies any nausea vomiting. Patient denies any cough or fever. Patient denies any chest pain or any trouble breathing. This time patient said he wanted to be evaluated. Initially he did not specify what he wanted to be evaluated for. Then he later stated that he wanted something to eat. Patient denies suicidal ideation denies homicidal ideation. Patient said he was sleeping, had a dream that somebody tried to kill him. Review of Systems: Review of Systems: Constitutional: Denies fever or chills. [] Eyes: Denies change in visual acuity. [] HENT: Denies nasal congestion or sore throat. [] Respiratory: Denies cough or shortness of breath. [] Cardiovascular: Denies chest pain or edema. [] GI: Denies abdominal pain, nausea, vomiting, bloody stools or diarrhea. [] : Denies dysuria. [] Musculoskeletal: Denies back pain or joint pain. [] Integument: Denies rash. [] Neurologic: Denies headache, focal weakness or sensory changes. [] Endocrine: Denies polyuria or polydipsia. [] Lymphatic: Denies swollen glands. [] Psychiatric: Denies depression or anxiety. [] Heart Score: C/O Chest Pain: N/A Risk Factors: Risk Factors: DM, Current or recent (<one month) smoker, HTN, HLP, family history of CAD, obesity. Risk Scores: Score 0 - 3: 2.5% MACE over next 6 weeks - Discharge Home Score 4 - 6: 20.3% MACE over next 6 weeks - Admit for Clinical Observation Score 7 - 10: 72.7% MACE over next 6 weeks - Early Invasive Strategies Allergies: Allergies: Allergies Coded Allergies Type Severity Reaction Last Updated Verified No Known Drug Allergies 02/14/17 No Physical Exam: PE: Constitutional: Well developed, well nourished, no acute distress, non-toxic appearance. [] HENT: Normocephalic, atraumatic, bilateral external ears normal, oropharynx moist, no oral exudates, nose normal. [] Eyes: PERRLA, EOMI, conjunctiva normal, no discharge. [] Neck: Normal range of motion, no tenderness, supple, no stridor. [] Cardiovascular:Heart rate regular rhythm, no murmur [] Lungs & Thorax: Bilateral breath sounds clear to auscultation [] Abdomen: Bowel sounds normal, soft, no tenderness, no masses, no pulsatile masses. [] Skin: Warm, dry, no erythema, no rash. [] Back: No tenderness, no CVA tenderness. [] Extremities: No tenderness, no cyanosis, no clubbing, ROM intact, no edema. [] Neurologic: Alert and oriented X 3, normal motor function, normal sensory function, no focal deficits noted. [] Psychologic: Affect normal, judgement normal, mood normal. [] Current Patient Data: Vital Signs: Vital Signs Date Time Temp Pulse Resp B/P (MAP) Pulse Ox O2 Delivery O2 Flow Rate FiO2 08/15/21 07:25 98.4 18 132/66 (88) Room Air 98.4 EKG: EKG: [] Radiology/Procedures: Radiology/Procedures: [] Course & Med Decision Making: Course & Med Decision Making Pertinent Labs and Imaging studies reviewed. (See chart for details) Patient is a 41-year-old male who was brought here for evaluation. Patient initially said he was having a dream that someone was trying to kill him. But he denies suicidal ideation and homicidal nation. Patient said later he stated that he did want something to eat and go home.. Patient is well-known to this department and this physician, he has been evaluated here multiple times for different medical reasons, patient was in no acute distress, there is no further work-up needed at this time. Dragon Disclaimer: Dragon Disclaimer: This electronic medical record was generated, in whole or in part, using a voice recognition dictation system. Departure Departure Impression: Primary Impression: Encounter for medical screening examination Disposition: HOME / SELF CARE / HOMELESS Condition: STABLE Referrals: NO PCP (PCP) Patient Instructions: Medical Screening Exam MINH PHILIPPE DO Aug 15, 2021 07:47
== END 2021-08-15 07:50 | disposition home or self-care (01) ==
LOC: ER 04:06
DX: Z00.8 Encounter for other general examination (principal); J45.909 Unspecified asthma, uncomplicated; K21.9 Gastro-esophageal reflux disease without esophagitis; I10 Essential (primary) hypertension; F20.9 Schizophrenia, unspecified; F17.200 Nicotine dependence, unspecified, uncomplicated; F10.20 Alcohol dependence, uncomplicated; Y90.9 Presence of alcohol in blood, level not specified
CPT/HCPCS: 99283

== ENCOUNTER 2021-08-21 18:34 | Emergency (ER) | payer MEDICAID ==
[~2021-08-21] VITALS: Ht 177.8 cm; Wt 77.2 kg
[~2021-08-21 18:34] MED LIST changes: +CYCL10TA19 PO; -CYCL10TA2 PO
[2021-08-21] MEDS ORDERED: OLANZapine IM 10 MG VIAL. IM ONE (19:00)
[2021-08-21] MEDS ORDERED: diphenhydrAMINE 50 MG/ML VIAL IM ONE (19:00)
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
[2021-08-21 19:42] LABS: BASO # 0.1 x10^3/uL (0.0-0.2); BASO % 1 % (0-3); EOS # 0.1 x10^3/uL (0.0-0.7); EOS % 1 % (0-3); HEMATOCRIT 42.4 % (39.0-53.0); HEMOGLOBIN 14.6 g/dL (13.0-17.5); LYMPH # 2.4 x10^3/uL (1.0-4.8); LYMPH % 27 % (24-48); MEAN CORPUSCULAR HEMOGLOBIN 31 pg (25-35); MEAN CORPUSCULAR HGB CONC 34 g/dL (31-37); MEAN CORPUSCULAR VOLUME 90 fL (79-100); MONO # 0.9 x10^3/uL (0.0-1.1); MONO % 10 % (0-9); NEUT # 5.6 x10^3/uL (1.8-7.7); NEUT % 62 % (31-73); PLATELET COUNT 240 x10^3/uL (140-400); RED BLOOD COUNT 4.71 x10^6/uL (4.30-5.70); RED CELL DISTRIBUTION WIDTH 13.1 % (11.5-14.5)
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
[2021-08-21 19:53] LABS: CALCIUM 8.9 mg/dL (8.5-10.1); CREATININE 1.3 mg/dL (0.7-1.3); GFR 74.4; POTASSIUM 3.7 mmol/L (3.5-5.1)
[2021-08-21 19:59] LABS: ALBUMIN 3.6 g/dL (3.4-5.0); ALBUMIN/GLOBULIN RATIO 1.2 (1.0-1.7); TOTAL BILIRUBIN 0.2 mg/dL (0.2-1.0); TOTAL PROTEIN 6.7 g/dL (6.4-8.2)
[2021-08-21] MEDS ORDERED: ACETAMINOPHEN 500 MG TABLET PO ONE (20:30)
[2021-08-21 21:17] VITALS: BP 123/77
[2021-08-21] MEDS ORDERED: ORPHENADRINE CITRATE 60 MG/2 ML VIAL. IM ONE (21:45)
[2021-08-21] MEDS ORDERED: NEOMY/BACITR/POLYMYXIN OINT PACKET. TP ONE ×2 (21:48→22:00)
== END 2021-08-21 22:12 | disposition home or self-care (01) ==
LOC: ER 18:34
DX: T69.029A Immersion foot, unspecified foot, initial encounter (principal); S00.81XA Abrasion of other part of head, initial encounter; R07.81 Pleurodynia; J45.909 Unspecified asthma, uncomplicated; K21.9 Gastro-esophageal reflux disease without esophagitis; I10 Essential (primary) hypertension; F20.9 Schizophrenia, unspecified; F10.20 Alcohol dependence, uncomplicated; Y90.0 Blood alcohol level of less than 20 mg/100 ml; Y08.89XA Assault by other specified means, initial encounter; Y93.89 Activity, other specified; Y92.89 Other specified places as the place of occurrence of the external cause; Y99.8 Other external cause status
CPT/HCPCS: 36415; 70450; 71250; 72125; 74176; 80053; 85025; 96372; 99285; G0480; J2360

== ENCOUNTER 2021-08-26 01:05 | Observation (INO) | payer MEDICAID ==
[~2021-08-26] VITALS: Ht 172.7 cm; Wt 77.0 kg
[~2021-08-26 01:05] MED LIST changes: -CYCL10TA19 PO; +CYCL10TA2 PO
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
[2021-08-26] MEDS ORDERED: HYDROcodone/APAP 5/325MG 1 TAB TABLET PO ONE (04:30)
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
[2021-08-26 07:30] VITALS: BP 130/76
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
[2021-08-26] MEDS ORDERED: HYDROcodone/APAP 5/325MG 1 TAB TABLET PO PRN (08:30)
[2021-08-26] MEDS ORDERED: PROCHLORPERAZINE 10 MG/2 ML VIAL. IV PRN (08:30)
[2021-08-26] MEDS ORDERED: ONDANSETRON PF 4 MG/2 ML VIAL. IVP PRN (08:30)
[2021-08-26] MEDS: IV NORMAL SALINE 1000ML BAG 1,000 ML IV SCH ×3 (08:30→10:40)
[2021-08-26] MEDS ORDERED: LORazepam 0.5 MG TABLET PO PRN (08:30)
[2021-08-26] MEDS ORDERED: MORPHINE SULFATE 2 MG/ML INJ. IV PRN (08:30)
[2021-08-26] MEDS ORDERED: ACETAMINOPHEN 325 MG TABLET. PO PRN (08:30)
[2021-08-26] MEDS ORDERED: SENNOSIDES 8.6 MG TABLET PO PRN (08:30)
[2021-08-26] MEDS ORDERED: KETOROLAC 30 MG/ML VIAL. IVP PRN (08:30)
[2021-08-26] MEDS ORDERED: MORPHINE SULFATE 2 MG/ML INJ. IVP PRN (08:30)
[2021-08-26] MEDS ORDERED: ZOLPIDEM 5 MG TABLET. PO PRN (08:30)
[2021-08-26] MEDS ORDERED: DEXTROSE 50% 25 GM / 50ML DISP.SYRIN. IV PRN (08:30)
[2021-08-26] MEDS ORDERED: DOCUSATE SODIUM 100 MG CAPSULE. PO PRN (08:30)
[2021-08-26] MEDS ORDERED: ENOXAPARIN 40 MG/0.4 ML SYRINGE. SQ SCH (09:00)
--- NOTE | 2021-08-26 10:20 | NUR ---
SW following. Discussed with RN, pt from home, room air, regular diet. RN advised no SW needs at this time, anticipates discharge in the next day or two. SW will continue to follow. Addendum: 08/26/21 at 1439 by SRAVAN CALL Tenisha DUNNE) met with pt, pt missed his injection at [facility], will need to be sent in a cab directly there at discharge. Pt very familiar to the mental health community, has a embedded case manager named Leigh. Pt cleared by ROSITA.
[2021-08-26 11:00] VITALS: BP 129/70
[2021-08-26 15:00] VITALS: BP 130/77
--- NOTE | 2021-08-26 17:08 | NUR ---
Patient advised by doctor and staff to receive medical treatment . Patient refused all medical care and signed AMA form. Addendum: 08/26/21 at 1722 by MARTÍNEZ BOX LPN Patient was educated on risk of leaving against medical advise including/ up to possible due to complications. notified at 1648, Nursing Distance Learning Program Coordinator notified at 1700. peripheral IV discontinued by patient.
--- NOTE | 2021-08-26 17:22 | NUR ---
Patient refused to wait for Security and was escorted by staff.
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
== END 2021-08-26 16:48 | disposition left against medical advice (07) ==
LOC: ER 01:05 → INTOOBSV 05:56 → 4 NORTH 05:56
PROVIDERS: ADMIT Internal Medicine; ATTEND Internal Medicine
DX: S22.42XA Multiple fractures of ribs, left side, initial encounter for closed fracture (principal); F12.90 Cannabis use, unspecified, uncomplicated; I10 Essential (primary) hypertension; J45.909 Unspecified asthma, uncomplicated; F20.9 Schizophrenia, unspecified; F19.10 Other psychoactive substance abuse, uncomplicated; R07.89 Other chest pain; K21.9 Gastro-esophageal reflux disease without esophagitis; Y08.89XA Assault by other specified means, initial encounter; Y93.89 Activity, other specified; Y92.89 Other specified places as the place of occurrence of the external cause; Y99.8 Other external cause status
CPT/HCPCS: 70450; 71101; 71250; 72125; 72131; 73130; 96360; 96361; 96372; 99285; G0238; G0378; J1650; J7030; G0379

== ENCOUNTER 2021-08-29 05:47 | Emergency (ER) | payer MEDICAID ==
[~2021-08-29] VITALS: Ht 177.8 cm; Wt 99.0 kg
[2021-08-29 05:57] VITALS: BP 139/83
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
[2021-08-29] MEDS ORDERED: LIDO:MAALOX 1:1 20 ML SINGLE DOSE. SWSW ONE (06:30)
== END 2021-08-29 06:45 | disposition home or self-care (01) ==
LOC: ER 05:47
DX: G89.29 Other chronic pain (principal); R10.13 Epigastric pain; M54.89 Other dorsalgia; J45.909 Unspecified asthma, uncomplicated; K21.9 Gastro-esophageal reflux disease without esophagitis; I10 Essential (primary) hypertension; F20.9 Schizophrenia, unspecified; F10.20 Alcohol dependence, uncomplicated; Z59.00 Homelessness unspecified; Y90.9 Presence of alcohol in blood, level not specified
CPT/HCPCS: 99283

== ENCOUNTER 2021-09-06 00:25 | Emergency (ER) | payer MEDICAID ==
[~2021-09-06] VITALS: Ht 182.9 cm; Wt 84.0 kg
[~2021-09-06 00:25] MED LIST changes: +CYCL10TA19 PO; -CYCL10TA2 PO
[2021-09-06 01:17] VITALS: BP 137/87
[2021-09-06] MEDS ORDERED: KETOROLAC 60 MG/2 ML VIAL. IM ONE (01:45)
[2021-09-06] MEDS ORDERED: LIDO:MAALOX 1:1 20 ML SINGLE DOSE. SWSW ONE (01:45)
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
== END 2021-09-06 02:10 | disposition home or self-care (01) ==
LOC: ER 00:25
DX: K21.9 Gastro-esophageal reflux disease without esophagitis (principal); R07.81 Pleurodynia; I10 Essential (primary) hypertension; F20.9 Schizophrenia, unspecified; J45.909 Unspecified asthma, uncomplicated; F17.200 Nicotine dependence, unspecified, uncomplicated
CPT/HCPCS: 96372; 99283; J1885

== ENCOUNTER 2021-09-07 23:24 | Emergency (ER) | payer MEDICAID ==
[~2021-09-07] VITALS: Ht 172.7 cm; Wt 98.5 kg
[2021-09-08 04:50] VITALS: BP 131/71
[2021-09-08] MEDS ORDERED: ONDANSETRON ODT 4 MG TAB.RAPDIS. PO ONE (05:00)
[2021-09-08] MEDS ORDERED: LIDO:MAALOX 1:1 20 ML SINGLE DOSE. PO ONE (05:00)
[2021-09-08] MEDS ORDERED: ONDA4TAB12 PO (05:01)
[2021-09-08] MEDS ORDERED: FAMO-63 PO (05:01)
--- NOTE | 2021-09-08 05:01 | PHYS DOC ---
Past Medical History Past Medical History: Anxiety, Asthma, Bipolar, GERD, Hypertension, Schiz ophrenia Additional Past Medical Histor: SUBSTANCE ABUSE Past Surgical History: No Surgical History Additional Past Surgical Histo: UNKNOWN Smoking Status: Current Every Day Smoker Alcohol Use: Heavy Drug Use: Marijuana, Other General Adult EDM: Chief Complaint: NAUSEA/VOMITING/DIARRHEA HPI: HPI: Patient is a 41 year old male patient is presenting today with nausea and vomiting that started about 30 minutes before he came to the emergency department. Patient states that he vomited 2 or 3 times and it does look like food. She says this is happened before and the last time it has happened was several years ago. Patient denies any diarrhea or constipation. Patient does complain of some epigastric abdominal pain. Patient states his pain is related to when he feels anxious when he has to talk to people. Patient does also think that he may have eaten something that upset his stomach. Patient endorses the fact that he has a very weak stomach and often gets belly pain. His belly pain is no worse than his normal. Patient denies any recent travel, fevers, chills, blood, or headache. Patient has had excessive ER visits. Review of Systems: Review of Systems: Constitutional: Denies fever or chills Eyes: Denies redness or eye pain HENT: Denies nasal congestion or sore throat Respiratory: Denies cough or shortness of breath Cardiovascular: Denies chest pain or palpitations GI: Endorses epigastric abdominal pain, nausea, and vomiting : Denies dysuria or hematuria Musculoskeletal: Denies back pain or joint pain Integument: Denies rash or skin lesions Neurologic: Denies headache, focal weakness or sensory changes Complete systems were reviewed and found to be within normal limits, except as documented in this note. Heart Score: C/O Chest Pain: No Risk Scores: Allergies: Allergies: Allergies Coded Allergies Type Severity Reaction Last Updated Verified No Known Drug Allergies 02/14/17 No Physical Exam: PE: Constitutional: Well developed, well nourished, no acute distress, non-toxic appearance HENT: Normocephalic, atraumatic Eyes: Conjunctiva normal, no discharge Neck: Normal range of motion, no tenderness, supple Lungs & Thorax: No respiratory distress, equal chest rise and fall Abdomen: Abdomen soft with mild epigastric tenderness to palpation, no rebound, guarding, signs of acute abdomen,, bowel sounds x4 Skin: Warm, dry, no erythema, no rash Back: No tenderness, no CVA tenderness Extremities: No tenderness, ROM intact, no edema Neurologic: Alert and oriented X 3, normal motor function, normal sensory function, no focal deficits noted Psychologic: Patient appears to be holding some delusions Course & Med Decision Making: Course & Med Decision Making 41-year-old male patient presenting today with nausea and vomiting. Patient is a homeless gentleman that frequently comes to the emergency department for care. Patient is specifically requesting a GI cocktail to help with symptoms. He thinks that these have helped the symptoms before. Moderate suspicion for gastroenteritis at this point but concerned this patient is exhibiting some signs of malingering. patient denies travel, fevers, chills, blood, headaches. Very low suspicion for acutely dangerous pathology like appendicitis, pancreatitis or small bowel obstruction. Patient tolerated the GI cocktail well and is feeling better. Patient is instructed to follow up with primary care and/or return to the emergency department if any symptoms get worse. Patient stable for discharge with outpatient follow-up with PCP. Discussed findings and plan with patient, who acknowledges understanding and agreement. Sharmin Disclaimer: Sharmin Disclaimer: This electronic medical record was generated, in whole or in part, using a voice recognition dictation system. Departure Departure Impression: Primary Impression: Malingering Additional Impression: Chronic nausea Disposition: HOME / SELF CARE / HOMELESS Condition: STABLE Referrals: NO PCP (PCP) Patient Instructions: Nausea, Adult, [id number] Scripts Ondansetron (ONDANSETRON ODT) 4 Mg Tab.rapdis 1 TAB PO PRN Q6-8HRS PRN for NAUSEA, #16 TAB Prov: EVA MONSIVAIS DO 09/08/21 Famotidine (PEPCID) 20 Mg Tablet 20 MG PO BID, #20 TAB Prov: EVA MONSIVAIS DO 09/08/21 EVA MONSIVAIS DO Sep 08, 2021 05:01
== END 2021-09-08 05:23 | disposition home or self-care (01) ==
LOC: ER 23:24
DX: Z76.5 Malingerer [conscious simulation] (principal); R11.2 Nausea with vomiting, unspecified; R10.13 Epigastric pain; R53.1 Weakness; Z59.00 Homelessness unspecified; F41.9 Anxiety disorder, unspecified; F31.9 Bipolar disorder, unspecified; J45.909 Unspecified asthma, uncomplicated; K21.9 Gastro-esophageal reflux disease without esophagitis; I10 Essential (primary) hypertension; F20.9 Schizophrenia, unspecified; F17.200 Nicotine dependence, unspecified, uncomplicated; F10.20 Alcohol dependence, uncomplicated; Y90.9 Presence of alcohol in blood, level not specified
CPT/HCPCS: 99283

== ENCOUNTER 2021-09-10 07:24 | Emergency (ER) | payer MEDICAID ==
[~2021-09-10] VITALS: Ht 177.8 cm; Wt 86.0 kg
[2021-09-10 07:32] VITALS: BP 131/79
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
[2021-09-10] MEDS ORDERED: LIDO:MAALOX 1:1 20 ML SINGLE DOSE. SWSW ONE (07:45)
[2021-09-10] MEDS ORDERED: KETOROLAC 60 MG/2 ML VIAL. IM ONE (07:45)
== END 2021-09-10 08:00 | disposition home or self-care (01) ==
LOC: ER 07:24
DX: G89.29 Other chronic pain (principal); R10.13 Epigastric pain; R07.81 Pleurodynia; Z59.00 Homelessness unspecified; K21.9 Gastro-esophageal reflux disease without esophagitis; I10 Essential (primary) hypertension; F20.9 Schizophrenia, unspecified; J45.909 Unspecified asthma, uncomplicated; Z87.891 Personal history of nicotine dependence
CPT/HCPCS: 96372; 99283; J1885

== ENCOUNTER 2021-09-11 17:42 | Emergency (ER) | payer MEDICAID ==
[2021-09-10 07:32] VITALS: BP 131/79
== END 2021-09-11 18:22 | disposition left against medical advice (07) ==
LOC: ER 17:42
DX: R11.2 Nausea with vomiting, unspecified (principal); R19.7 Diarrhea, unspecified; Z53.21 Procedure and treatment not carried out due to patient leaving prior to being seen by health care provider

== ENCOUNTER 2021-09-17 22:48 | Emergency (ER) | payer MEDICAID ==
[~2021-09-17] VITALS: Ht 172.7 cm; Wt 90.9 kg
[2021-09-17] MEDS ORDERED: LIDO:MAALOX 1:1 20 ML SINGLE DOSE. SWSW ONE (23:30)
[2021-09-17] MEDS ORDERED: IBUPROFEN 200 MG TABLET. PO ONE (23:30)
--- NOTE | 2021-09-17 23:42 | EKG ---
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
--- NOTE | 2021-09-17 23:45 | PHYS DOC ---
Past Medical History Past Medical History: Asthma, GERD, Hypertension, Schizophrenia Additional Past Medical Histor: SUBSTANCE ABUSE (SARVAN SCHWARTZ APRN) Past Surgical History: No Surgical History Additional Past Surgical Histo: UNKNOWN (SRAVAN SCHWARTZ APRN) Smoking Status: Former Smoker Alcohol Use: Heavy Drug Use: Marijuana, Other (SRAVAN SCHWARTZ APRN) General Adult EDM: Chief Complaint: ABDOMINAL PAIN HPI: HPI: Patient is a 41 year old male who presents with burning, epigastric pain. P pedro pablo has been seen multiple times in the past month for the same symptoms. Patient states "GI cocktail with makes the pain a little better". Patient is also reporting left-sided jaw pain. denies chest pain, shortness of breath, nausea/vomiting. Patient denies recent illness. Patient has history of GERD, asthma, hypertension, schizophrenia, substance abuse. (SRAVAN SCHWARTZ APRN) Review of Systems: Review of Systems: ROS At least 10 ROS systems have been reviewed and are negative except as documented in the HPI. General: Negative except as outlined in HPI above. Skin: Negative except as outlined in HPI above. HEENT: Negative except as outlined in HPI above. Neck: Negative except as outlined in HPI above. Respiratory: Negative except as outlined in HPI above.. Cardiovascular: Negative except as outlined in HPI above. Abdomen: Negative except as outlined in HPI above. : Negative except as outlined in HPI above. Back/MSK: Negative except as outlined in HPI above. Neuro: Negative except as outlined in HPI above. Psych: Negative except as outlined in HPI above. (SRAVAN SCHWARTZ APRN) Heart Score: C/O Chest Pain: No Risk Factors: Risk Factors: DM, Current or recent (<one month) smoker, HTN, HLP, family history of CAD, obesity. Risk Scores: Score 0 - 3: 2.5% MACE over next 6 weeks - Discharge Home Score 4 - 6: 20.3% MACE over next 6 weeks - Admit for Clinical Observation Score 7 - 10: 72.7% MACE over next 6 weeks - Early Invasive Strategies (SRAVAN SCHWARTZ APRN) Current Medications: Current Medications Medications (Trade) Dose Ordered Sig/Hayde Start Time Stop Time Status Last Admin Dose Admin Multi-Ingredient Mouthwash/Gargle (Gi Cocktail) 20 ml 1X ONCE 09/17/21 23:30 09/17/21 23:31 (SRAVAN SCHWARTZ APRN) Allergies: Allergies: Allergies Coded Allergies Type Severity Reaction Last Updated Verified No Known Drug Allergies 09/10/21 No (SRAVAN SCHWARTZ APRN) Physical Exam: PE: Constitutional: Well developed, well nourished, no acute distress, non-toxic appearance. [] HENT: Normocephalic, atraumatic, bilateral external ears normal, oropharynx moist, no oral exudates, inflammation and tenderness to left upper gum Eyes: PERRLA, EOMI, conjunctiva normal, no discharge. [] Neck: Normal range of motion, no tenderness, supple, no stridor. [] Cardiovascular:Heart rate regular rhythm, no murmur [] Lungs & Thorax: Bilateral breath sounds clear to auscultation [] Abdomen: Bowel sounds normal, soft, epigastric tenderness, no masses, no pulsatile masses. [] Skin: Warm, dry, no erythema, no rash. [] Back: No tenderness, no CVA tenderness. [] Extremities: No tenderness, no cyanosis, no clubbing, ROM intact, no edema. [] Neurologic: Alert and oriented X 3, normal motor function, normal sensory function, no focal deficits noted. [] Psychologic: Affect normal, judgement normal, mood normal. [] (SRAVAN SCHWARTZ APRN) EKG: EKG: Sinus rhythm. Heart rate [address] Ahn at 2341. [] (SRAVAN SCHWARTZ APRN) Radiology/Procedures: Radiology/Procedures: [] (SRAVAN SCHWARTZ APRN) Course & Med Decision Making: Course & Med Decision Making Pertinent Labs and Imaging studies reviewed. (See chart for details) 41-year-old male presents with epigastric pain and left sided jaw pain. Patient has been seen multiple times this month for the same issue. Epigastric pain and jaw pain are both chronic issues for patient. Pain was treated in the ER with Motrin and GI cocktail. EKG shows sinus rhythm, heart rate 71 bpm. Upon reassessment patient states that symptoms have improved. Advised patient to take [id number] Motrin for pain. Patient should follow-up with his dentist or PCP recommendation for chronic jaw pain. Patient is hemodynamically stable upon disposition. (SRAVAN SCHWARTZ APRN) Course & Med Decision Making At time of disposition patient reported to myself and RN that he feels as if he cannot breathe. Patient saturations has not required any intervention or supplemental oxygen. Repeat oral exam (I saw pt on initial arrival) with oropharynx patent, no edema. Patient speaking in full sentences with no drooling or spitting. Patient tells me he has had a sore throat for 2 weeks. Dad corrects patient and states it has only been about 1 week, (patient consents to his/her/their knowledge and involvement in pts' medical care). I prescribed antibiotics and recommended complaince with medrol dose pack. Pt was seen by his pcp today and yesterday for the same reason and told he had a virus. Has tested negative for Covid and strep. (SAIDA AHN DO) Sharmin Disclaimer: Sharmin Disclaimer: This electronic medical record was generated, in whole or in part, using a voice recognition dictation system. (SRAVAN SCHWARTZ APRN) Departure Departure Impression: Primary Impression: Chronic abdominal pain Additional Impression: Chronic jaw pain Disposition: HOME / SELF CARE / HOMELESS Condition: STABLE Referrals: NO PCP (PCP) Patient Instructions: Abdominal Pain (Nonspecific) Additional Instructions: EMERGENCY DEPARTMENT GENERAL DISCHARGE INSTRUCTIONS Thank you for coming to [facility] Emergency Department (ED) today and trusting us with you care. We trust that you had a positive experience in our Emergency Department. If you wish to speak to the department management, you may call the Director at [phone]. YOUR FOLLOW UP INSTRUCTIONS ARE FOLLOWS: 1. Do you have a private Doctor? If you do not have a private doctor, please ask for a resource list of physicians or clinics that may be able to assist you with follow up care. 2. The Emergency Physicain has interpreted your x-rays. The X-Ray specialist will also review them. If there is a change in the findings, you will be notified in 48 hours when at all possible. 3. A lab test or culture has been done, your results will be reviewed and you will be notified if you need a change in treatment. ADDITIONAL INSTRUCTIONS AND INFORMATION: 1. Your care today has been supervised by a physician who is specially trained in emergency care. Many problems require more than one evaluation for a complete diagnosis and treatment. We recommend that you schedule your follow up appointment as recommended to ensure complete treatment of you illness or injury. If you are unable to obtain follow up care and continue to have a problem, or if your condition worsens, we recommend that you return to the ED. 2. We are not able to safely determine your condition over the phone nor are we able to give sound medical advice over the phone. For these safety reasons, if you call for medical advice we will ask you to come to the ED for further evaluation. 3. If you have any questions regarding these discharge instructions please call the ED at [phone]. SAFETY INFORMATION: In the interest of safety, wellness, and injury prevention; we encourage you to wear your sealbelt, if you smoke; quite smoking, and we encourage family to use a protective helmet for bicycling and other sporting events that present an increased risk for head injury. IF YOUR SYMPTOMS WORSEN OR NEW SYMPTOMS DEVELOP, OR YOU HAVE CONCERNS ABOUT YOUR CONDITION; OR IF YOUR CONDITION WORSENS WHILE YOU ARE WAITING FOR YOUR FOLLOW UP APPOIN TMENT; EITHER CONTACT YOUR PRIMARY CARE DOCTOR, THE PHYSICIAN WHOSE NAME AND NUMBER YOU WERE GIVEN, OR RETURN TO THE ED IMMEDIATELY. SRAVAN SCHWARTZ APRN Sep 17, 2021 23:45 SAIDA AHN DO Sep 18, 2021 04:25
[2021-09-18 00:55] VITALS: BP 143/74
== END 2021-09-18 01:48 | disposition home or self-care (01) ==
LOC: ER 22:48
DX: G89.29 Other chronic pain (principal); R10.13 Epigastric pain; R68.84 Jaw pain; I10 Essential (primary) hypertension; K21.9 Gastro-esophageal reflux disease without esophagitis; F20.9 Schizophrenia, unspecified; J45.909 Unspecified asthma, uncomplicated; Z87.891 Personal history of nicotine dependence; F10.20 Alcohol dependence, uncomplicated; Y90.9 Presence of alcohol in blood, level not specified
CPT/HCPCS: 93005; 99283

== ENCOUNTER 2021-09-26 01:21 | Emergency (ER) | payer MEDICAID ==
[~2021-09-26] VITALS: Ht 177.8 cm; Wt 90.0 kg
[2021-09-26 01:25] VITALS: BP 143/74
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
[2021-09-26] MEDS ORDERED: IBUPROFEN 400 MG TABLET. PO ONE (02:00)
== END 2021-09-26 02:10 | disposition home or self-care (01) ==
LOC: ER 01:21
DX: R07.81 Pleurodynia (principal); J45.909 Unspecified asthma, uncomplicated; K21.9 Gastro-esophageal reflux disease without esophagitis; I10 Essential (primary) hypertension; F20.9 Schizophrenia, unspecified; F17.200 Nicotine dependence, unspecified, uncomplicated; F10.20 Alcohol dependence, uncomplicated; Z87.81 Personal history of (healed) traumatic fracture; Y90.9 Presence of alcohol in blood, level not specified
CPT/HCPCS: 99283

== ENCOUNTER 2021-09-26 23:13 | Emergency (ER) | payer MEDICAID ==
[~2021-09-26] VITALS: Ht 172.7 cm; Wt 90.9 kg
[2021-09-26 23:15] VITALS: BP 145/80
--- NOTE | 2021-09-26 23:34 | ED.ADGEN ---
Past Medical History Past Medical History: Asthma, GERD, Hypertension, Schizophrenia Additional Past Medical Histor: SUBSTANCE ABUSE Past Surgical History: Other Additional Past Surgical Histo: UNKNOWN Smoking Status: Current Every Day Smoker Alcohol Use: Heavy Drug Use: Marijuana, Other General Adult EDM: Chief Complaint: ABDOMINAL PAIN HPI: HPI: Patient is a 41 year old male well-known to the emergency department coming in via EMS. Patient is requesting a GI cocktail. Also complaining of rib pain, patient is a history of rib fractures about 1 month ago. Patient states that he had hit his ribs on something and is having increased pain. Review of Systems: Review of Systems: All other systems within normal limits except for as noted in the HPI Current Medications: Current Medications Medications (Trade) Dose Ordered Sig/Hayde Start Time Stop Time Status Last Admin Dose Admin Multi-Ingredient Mouthwash/Gargle (Gi Cocktail) 20 ml 1X ONCE 09/26/21 23:45 09/26/21 23:46 DC Allergies: Allergies: Allergies Coded Allergies Type Severity Reaction Last Updated Verified No Known Drug Allergies 09/10/21 No Physical Exam: PE: Constitutional: Well developed, well nourished, no acute distress, non-toxic appearance. [] HENT: Normocephalic, atraumatic, bilateral external ears normal, nose normal. [] Eyes: PERRLA, conjunctiva normal, no discharge. [] Neck: No rigidity, supple, no stridor. [] Cardiovascular: Regular rate and rhythm, brisk cap refill [] Lungs & Thorax: Non labored symmetric respirations, no tachypnea or respiratory distress [] Abdomen: Soft, nondistended. Skin: Warm, dry, no erythema, no rash. [] Back: Unremarkable Extremities: No deformities, range of motion grossly intact, no lower extremity edema [] Neurologic: Alert and oriented X 3, no focal deficits noted. [] Psychologic: Affect normal, judgement normal, mood normal. [] EKG: EKG: [] Heart Score: C/O Chest Pain: No Risk Factors: Risk Factors: DM, Current or recent (<one month) smoker, HTN, HLP, family history of CAD, obesity. Risk Scores: Score 0 - 3: 2.5% MACE over next 6 weeks - Discharge Home Score 4 - 6: 20.3% MACE over next 6 weeks - Admit for Clinical Observation Score 7 - 10: 72.7% MACE over next 6 weeks - Early Invasive Strategies Radiology/Procedures: Radiology/Procedures: [facility] [address] [place] [address] IMAGING REPORT Signed PATIENT: RUBIN HADLEY ACCOUNT: [id number] : 1980 LOCATION: ER AGE: 41 SEX: M EXAM STATUS: PRE ER ORD. PHYSICIAN: KURT GARCIA MD REASON: contusion over previous fractures PROCEDURE: RIBS LEFT AND PA CHEST EXAM: Frontal chest with 3 view left rib series. HISTORY: Left rib fractures. COMPARISON: 08/26/2021. FINDINGS: There is a subacute fracture of the left lateral fifth rib. No new fractures are identified. The inspiration is small. Interstitial opacities may reflect atelectasis in this setting. There is no pneumothorax or pleural effusion. The heart is not enlarged. IMPRESSION: 1. Subacute left lateral fifth rib fracture. Electronically signed by: Yvette Appiah MD (09/26/2021 11:50 PM) [facility] DICTATED and SIGNED BY: CAROLYN APPIAH MD DATE: 09/26/21 [id number] [] Course & Med Decision Making: Course & Med Decision Making Pertinent Labs and Imaging studies reviewed. (See chart for details) [] Dragon Disclaimer: Dragon Disclaimer: This electronic medical record was generated, in whole or in part, using a voice recognition dictation system. Departure Departure Impression: Primary Impression: History of rib fracture Additional Impressions: Homelessness Abdominal pain Disposition: 01 HOME / SELF CARE / HOMELESS Condition: STABLE Referrals: NO PCP (PCP) Patient Instructions: Chest Wall Pain, [id number] Problem Qualifiers KURT GARCIA MD Sep 26, 2021 23:34
[2021-09-26] MEDS ORDERED: LIDO:MAALOX 1:1 20 ML SINGLE DOSE. SWSW ONE (23:45)
--- NOTE | 2021-09-26 23:52 | RAD ---
EXAM: Frontal chest with 3 view left rib series. HISTORY: Left rib fractures. COMPARISON: 08/26/2021. FINDINGS: There is a subacute fracture of the left lateral fifth rib. No new fractures are identified . The inspiration is small. Interstitial opacities may reflect atelectasis in this setting. There is no pneumothorax or pleural effusion. The heart is not enlarged. IMPRESSION: 1. Subacute left lateral fifth rib fracture. Electronically signed by: Yvette Appiah MD (09/26/2021 11:50 PM) [facility]
== END 2021-09-27 00:23 | disposition home or self-care (01) ==
LOC: ER 23:13
DX: R10.9 Unspecified abdominal pain (principal); R07.81 Pleurodynia; J45.909 Unspecified asthma, uncomplicated; K21.9 Gastro-esophageal reflux disease without esophagitis; I10 Essential (primary) hypertension; F20.9 Schizophrenia, unspecified; F17.200 Nicotine dependence, unspecified, uncomplicated; F10.20 Alcohol dependence, uncomplicated; Z87.81 Personal history of (healed) traumatic fracture; Y90.9 Presence of alcohol in blood, level not specified
CPT/HCPCS: 71101; 99283

== ENCOUNTER → 2021-10-02 | Emergency (ER) | payer MEDICAID ==
[~2021-10-02] VITALS: Ht 172.7 cm; Wt 90.0 kg
[2021-10-02 04:18] VITALS: BP 152/70
--- NOTE | 2021-10-02 04:42 | PHYS DOC ---
Past Medical History Past Medical History: Asthma, GERD, Hypertension, Schizophrenia Additional Past Medical Histor: SUBSTANCE ABUSE Past Surgical History: Other Additional Past Surgical Histo: UNKNOWN Smoking Status: Current Every Day Smoker Alcohol Use: None Drug Use: Marijuana, Other General Adult EDM: Chief Complaint: ABDOMINAL PAIN HPI: HPI: Patient is a 41 year old male who frequents the emergency department with a chief complaint of abdominal pain presents with a chief complaint of abdominal pain. Patient presented via EMS. He he walked into the ER. Patient was complaining of some abdominal discomfort. Patient is currently homeless. Once roomed patient is requesting food he was fed ate a sandwich and chips as well as drank some soda. Patient was examined no acute abnormalities. Based upon HPI and physical exam we will not perform any tests or provide any medicine treatments. Patient will be allowed to sleep in room until the a.m. Review of Systems: Review of Systems: Constitutional: Denies fever or chills. [] Eyes: Denies change in visual acuity. [] HENT: Denies nasal congestion or sore throat. [] Respiratory: Denies cough or shortness of breath. [] Cardiovascular: Denies chest pain or edema. [] GI: Denies abdominal pain, nausea, vomiting, bloody stools or diarrhea. [] : Denies dysuria. [] Musculoskeletal: Denies back pain or joint pain. [] Integument: Denies rash. [] Neurologic: Denies headache, focal weakness or sensory changes. [] Endocrine: Denies polyuria or polydipsia. [] Lymphatic: Denies swollen glands. [] Psychiatric: Denies depression or anxiety. [] Heart Score: C/O Chest Pain: N/A Risk Factors: Risk Factors: DM, Current or recent (<one month) smoker, HTN, HLP, family history of CAD, obesity. Risk Scores: Score 0 - 3: 2.5% MACE over next 6 weeks - Discharge Home Score 4 - 6: 20.3% MACE over next 6 weeks - Admit for Clinical Observation Score 7 - 10: 72.7% MACE over next 6 weeks - Early Invasive Strategies Allergies: Allergies: Allergies Coded Allergies Type Severity Reaction Last Updated Verified No Known Drug Allergies 09/10/21 No Physical Exam: PE: Constitutional: Well developed, well nourished, no acute distress, non-toxic appearance. [] HENT: Normocephalic, atraumatic, bilateral external ears normal, oropharynx moist, no oral exudates, nose normal. [] Eyes: PERRLA, EOMI, conjunctiva normal, no discharge. [] Neck: Normal range of motion, no tenderness, supple, no stridor. [] Cardiovascular:Heart rate regular rhythm, no murmur [] Lungs & Thorax: Bilateral breath sounds clear to auscultation [] Abdomen: Bowel sounds normal, soft, no tenderness, no masses, no pulsatile masses. [] Skin: Warm, dry, no erythema, no rash. [] Back: No tenderness, no CVA tenderness. [] Extremities: No tenderness, no cyanosis, no clubbing, ROM intact, no edema. [] Neurologic: Alert and oriented X 3, normal motor function, normal sensory function, no focal deficits noted. [] Psychologic: Affect normal, judgement normal, mood normal. [] Current Patient Data: Vital Signs: Vital Signs Date Time Temp Pulse Resp B/P (MAP) Pulse Ox O2 Delivery O2 Flow Rate FiO2 10/02/21 04:18 98.9 84 18 152/70 (97) 99 98.9 EKG: EKG: [] Radiology/Procedures: Radiology/Procedures: [] Course & Med Decision Making: Course & Med Decision Making Pertinent Labs and Imaging studies reviewed. (See chart for details) [] Dragon Disclaimer: Dragon Disclaimer: This electronic medical record was generated, in whole or in part, using a voice recognition dictation system. Departure Departure Impression: Primary Impression: Feared condition not demonstrated Disposition: 01 HOME / SELF CARE / HOMELESS Condition: STABLE Referrals: NO PCP (PCP) Patient Instructions: Exam, Normal, Adult JENNIFER MCGRAW I Oct 02, 2021 04:42
== END | disposition home or self-care (01) ==
LOC: ER 04:09
DX: Z71.1 Person with feared health complaint in whom no diagnosis is made (principal); R10.9 Unspecified abdominal pain; J45.909 Unspecified asthma, uncomplicated; K21.9 Gastro-esophageal reflux disease without esophagitis; I10 Essential (primary) hypertension; F20.9 Schizophrenia, unspecified; F17.200 Nicotine dependence, unspecified, uncomplicated
CPT/HCPCS: 99283

== ENCOUNTER 2021-10-04 01:35 | Emergency (ER) | payer MEDICAID ==
[~2021-10-04] VITALS: Ht 172.7 cm; Wt 90.0 kg
--- NOTE | 2021-10-04 02:41 | PHYS DOC ---
Past Medical History Past Medical History: Asthma, GERD, Hypertension, Schizophrenia Additional Past Medical Histor: SUBSTANCE ABUSE Past Surgical History: Other Additional Past Surgical Histo: UNKNOWN Smoking Status: Current Every Day Smoker Alcohol Use: None Drug Use: Marijuana, Other General Adult EDM: Chief Complaint: NEAR SYNCOPE HPI: HPI: Patient is a 41 year old male who is currently homeless presents via EMS with a chief complaint of dizziness and sleepwalking. Patient arrived by EMS he walked from the ambulance to exam room 21. Patient well-known to me multiple visits to the ER. Patient is stating that he was sleepwalking tonight. States during walking at times he felt dizzy. Patient also complained of chest discomfort he chronically complains of. Christina ent also requesting a GI cocktail. Based upon history of present illness and physical exam I do not suspect any emergent medical issues. Patient was fed and allowed to sleep. Review of Systems: Review of Systems: Constitutional: Denies fever or chills. [] Eyes: Denies change in visual acuity. [] HENT: Denies nasal congestion or sore throat. [] Respiratory: Denies cough or shortness of breath. [] Cardiovascular: Denies chest pain or edema. [Positive chest pain] GI: Denies abdominal pain, nausea, vomiting, bloody stools or diarrhea. [] : Denies dysuria. [] Musculoskeletal: Denies back pain or joint pain. [] Integument: Denies rash. [] Neurologic: Denies headache, focal weakness or sensory changes. [Positive dizziness] Endocrine: Denies polyuria or polydipsia. [] Lymphatic: Denies swollen glands. [] Psychiatric: Denies depression or anxiety. [] Heart Score: C/O Chest Pain: N/A Risk Factors: Risk Factors: DM, Current or recent (<one month) smoker, HTN, HLP, family history of CAD, obesity. Risk Scores: Score 0 - 3: 2.5% MACE over next 6 weeks - Discharge Home Score 4 - 6: 20.3% MACE over next 6 weeks - Admit for Clinical Observation Score 7 - 10: 72.7% MACE over next 6 weeks - Early Invasive Strategies Allergies: Allergies: Allergies Coded Allergies Type Severity Reaction Last Updated Verified No Known Drug Allergies 09/10/21 No Physical Exam: PE: Constitutional: Well developed, well nourished, no acute distress, non-toxic appearance. [] HENT: Normocephalic, atraumatic, bilateral external ears normal, oropharynx moist, no oral exudates, nose normal. [] Eyes: PERRLA, EOMI, conjunctiva normal, no discharge. [] Neck: Normal range of motion, no tenderness, supple, no stridor. [] Cardiovascular:Heart rate regular rhythm, no murmur [] Lungs & Thorax: Bilateral breath sounds clear to auscultation [] Abdomen: Bowel sounds normal, soft, no tenderness, no masses, no pulsatile masses. [] Skin: Warm, dry, no erythema, no rash. [] Back: No tenderness, no CVA tenderness. [] Extremities: No tenderness, no cyanosis, no clubbing, ROM intact, no edema. [] Neurologic: Alert and oriented X 3, normal motor function, normal sensory function, no focal deficits noted. [] Psychologic: Affect normal, judgement normal, mood normal. [] Current Patient Data: Vital Signs: Vital Signs Date Time Temp Pulse Resp B/P (MAP) Pulse Ox O2 Delivery O2 Flow Rate FiO2 10/04/21 01:35 97.6 71 20 142/76 (98) 99 Room Air 97.6 EKG: EKG: [] Radiology/Procedures: Radiology/Procedures: [] Course & Med Decision Making: Course & Med Decision Making Pertinent Labs and Imaging studies reviewed. (See chart for details) [] Patient in no acute distress. Patient allowed to sleep he tolerated p.o. Dragon Disclaimer: Sharmin Disclaimer: This electronic medical record was generated, in whole or in part, using a voice recognition dictation system. Departure Departure Impression: Primary Impression: Homelessness Additional Impression: Feared condition not demonstrated Disposition: 01 HOME / SELF CARE / HOMELESS Condition: STABLE Referrals: NO PCP (PCP) Patient Instructions: Exam, Normal, Adult JENNIFER MCGRAW I DO Oct 04, 2021 02:40
[2021-10-04 05:07] VITALS: BP 116/59
== END 2021-10-04 05:35 | disposition home or self-care (01) ==
LOC: ER 01:35
DX: Z71.1 Person with feared health complaint in whom no diagnosis is made (principal); Z59.00 Homelessness unspecified; R42 Dizziness and giddiness; R07.89 Other chest pain; J45.909 Unspecified asthma, uncomplicated; K21.9 Gastro-esophageal reflux disease without esophagitis; I10 Essential (primary) hypertension; F20.9 Schizophrenia, unspecified; F17.200 Nicotine dependence, unspecified, uncomplicated
CPT/HCPCS: 99285

== ENCOUNTER 2021-10-18 22:56 | Emergency (ER) | payer MEDICAID ==
[~2021-10-18] VITALS: Ht 167.6 cm; Wt 90.9 kg
[2021-10-18 23:01] VITALS: BP 128/80
--- NOTE | 2021-10-19 02:16 | ED.ADGEN ---
Past Medical History Past Medical History: Asthma, GERD, Hypertension, Schizophrenia Additional Past Medical Histor: SUBSTANCE ABUSE Past Surgical History: Other Additional Past Surgical Histo: UNKNOWN Smoking Status: Current Every Day Smoker Alcohol Use: None Drug Use: Marijuana, Other General Adult EDM: Chief Complaint: NAUSEA/VOMITING/DIARRHEA HPI: HPI: Patient is a 41 year old male coming in via EMS to emergency department for complaints of nausea. Patient is well-known to the emergency department for similar complaints and presenting to emergency departments around town for similar complaints. Patient asked that the nausea is related to his Abilify although he has not taken it for a week. Patient stating that he wants a medication evaluation although his medications are prescribed by [facility]. Patient requesting GI cocktail. Review of Systems: Review of Systems: All other systems within normal limits except for as noted in the HPI Allergies: Allergies: Allergies Coded Allergies Type Severity Reaction Last Updated Verified No Known Drug Allergies 09/10/21 No Physical Exam: PE: Constitutional: Well developed, well nourished, no acute distress, non-toxic appearance. [] HENT: Normocephalic, atraumatic, bilateral external ears normal, nose normal. [] Eyes: PERRLA, conjunctiva normal, no discharge. [] Neck: No rigidity, supple, no stridor. [] Cardiovascular: Regular rate and rhythm, brisk cap refill [] Lungs & Thorax: Non labored symmetric respirations, no tachypnea or respiratory distress [] Abdomen: Soft, nondistended. Skin: Warm, dry, no erythema, no rash. [] Back: Unremarkable Extremities: No deformities, range of motion grossly intact, no lower extremity edema [] Neurologic: Alert and oriented X 3, no focal deficits noted. [] Psychologic: Affect normal, judgement normal, mood normal. [] Current Patient Data: Vital Signs: Vital Signs Date Time Temp Pulse Resp B/P (MAP) Pulse Ox O2 Delivery O2 Flow Rate FiO2 10/18/21 23:01 97.7 79 20 128/80 (96) 94 Room Air 97.7 EKG: EKG: [] Heart Score: C/O Chest Pain: No Risk Factors: Risk Factors: DM, Current or recent (<one month) smoker, HTN, HLP, family history of CAD, obesity. Risk Scores: Score 0 - 3: 2.5% MACE over next 6 weeks - Discharge Home Score 4 - 6: 20.3% MACE over next 6 weeks - Admit for Clinical Observation Score 7 - 10: 72.7% MACE over next 6 weeks - Early Invasive Strategies Radiology/Procedures: Radiology/Procedures: [] Course & Med Decision Making: Course & Med Decision Making Pertinent Labs and Imaging studies reviewed. (See chart for details) [] Dragon Disclaimer: Dragon Disclaimer: This electronic medical record was generated, in whole or in part, using a voice recognition dictation system. Departure Departure Impression: Primary Impression: Malingering Disposition: HOME / SELF CARE / HOMELESS Condition: STABLE Additional Instructions: Follow-up with your behavioral health specialist for medication evaluation. Can take Pepto-Bismol, Maalox, or Tums as needed for epigastric discomfort. [address] [place] [address] KURT GARCIA MD Oct 19, 2021 02:16
== END 2021-10-19 03:12 | disposition home or self-care (01) ==
LOC: ER 22:56
DX: Z76.5 Malingerer [conscious simulation] (principal); R11.2 Nausea with vomiting, unspecified; K21.9 Gastro-esophageal reflux disease without esophagitis; I10 Essential (primary) hypertension; J45.909 Unspecified asthma, uncomplicated; F20.9 Schizophrenia, unspecified; F17.200 Nicotine dependence, unspecified, uncomplicated
CPT/HCPCS: 99283

== ENCOUNTER 2021-10-19 23:28 | Emergency (ER) | payer MEDICAID ==
[2021-10-18 23:01] VITALS: BP 128/80
== END 2021-10-20 00:02 | disposition left against medical advice (07) ==
LOC: ER 23:28
DX: R12 Heartburn (principal); Z53.21 Procedure and treatment not carried out due to patient leaving prior to being seen by health care provider

== ENCOUNTER 2021-10-24 07:42 | Emergency (ER) | payer MEDICAID ==
[~2021-10-24] VITALS: Ht 172.7 cm; Wt 102.3 kg
[2021-10-24 07:44] VITALS: BP 137/75
--- NOTE | 2021-10-24 07:53 | ED.ADGEN ---
Past Medical History Past Medical History: Asthma, GERD, Hypertension, Schizophrenia Additional Past Medical Histor: SUBSTANCE ABUSE Past Surgical History: Other Additional Past Surgical Histo: UNKNOWN Smoking Status: Current Every Day Smoker Alcohol Use: None Drug Use: Marijuana, Other General Adult EDM: Chief Complaint: OTHER COMPLAINTS HPI: HPI: Patient is a 41-year-old male who arrives via EMS after paramedics were contacted with respect to the patient being tired. Patient was transported to the emergency department and upon arrival is asking for a GI cocktail. After review of medical records it appears the patient has a history of this behavior and asked to be fed routinely. The patient denies any change to his medical history. He further denies any pain outside of what he is experiencing in his epigastric region. He is awake, he is somnolent. He is otherwise nontoxic- appearing. Review of Systems: Review of Systems: Constitutional: Reports fatigue. Denies fever or chills. [] Eyes: Denies change in visual acuity. [] HENT: Denies nasal congestion or sore throat. [] Respiratory: Denies cough or shortness of breath. [] Cardiovascular: Denies chest pain or edema. [] GI: Reports abdominal pain. Denies nausea, vomiting, bloody stools or diarrhea. [] : Denies dysuria. [] Musculoskeletal: Denies back pain or joint pain. [] Integument: Denies rash. [] Neurologic: Denies headache, focal weakness or sensory changes. [] Endocrine: Denies polyuria or polydipsia. [] Lymphatic: Denies swollen glands. [] Psychiatric: Denies depression or anxiety. [] Current Medications: Current Medications Medications (Trade) Dose Ordered Sig/Hayde Start Time Stop Time Status Last Admin Dose Admin Multi-Ingredient Mouthwash/Gargle (Gi Cocktail) 20 ml 1X ONCE 10/24/21 08:00 10/24/21 08:01 10/24/21 07:52 20 ML Allergies: Allergies: Allergies Coded Allergies Type Severity Reaction Last Updated Verified No Known Drug Allergies 09/10/21 No Physical Exam: PE: Constitutional: Patient is somnolent but does respond to verbal prompting. Well developed, well nourished, no acute distress, non-toxic appearance. [] HENT: Normocephalic, atraumatic, bilateral external ears normal, oropharynx moist, no oral exudates, nose normal. [] Eyes: PERRLA, EOMI, conjunctiva normal, no discharge. [] Neck: Normal range of motion, no tenderness, supple, no stridor. [] Cardiovascular:Heart rate regular rhythm, no murmur [] Lungs & Thorax: Bilateral breath sounds clear to auscultation [] Abdomen: Bowel sounds normal, soft, no tenderness, no masses, no pulsatile masses. [] Skin: Warm, dry, no erythema, no rash. [] Back: No tenderness, no CVA tenderness. [] Extremities: No tenderness, no cyanosis, no clubbing, ROM intact, no edema. [] Neurologic: Alert and oriented X 3, normal motor function, normal sensory function, no focal deficits noted. [] Psychologic: Affect normal, judgement normal, mood normal. [] Current Patient Data: Vital Signs: Vital Signs Date Time Temp Pulse Resp B/P (MAP) Pulse Ox O2 Delivery O2 Flow Rate FiO2 10/24/21 07:44 97.6 57 17 137/75 (95) 100 Room Air 97.6 EKG: EKG: [] Heart Score: C/O Chest Pain: No Risk Factors: Risk Factors: DM, Current or recent (<one month) smoker, HTN, HLP, family history of CAD, obesity. Risk Scores: Score 0 - 3: 2.5% MACE over next 6 weeks - Discharge Home Score 4 - 6: 20.3% MACE over next 6 weeks - Admit for Clinical Observation Score 7 - 10: 72.7% MACE over next 6 weeks - Early Invasive Strategies Radiology/Procedures: Radiology/Procedures: [] Course & Med Decision Making: Course & Med Decision Making Pertinent Labs and Imaging studies reviewed. (See chart for details) [] Dragon Disclaimer: Dragon Disclaimer: This electronic medical record was generated, in whole or in part, using a voice recognition dictation system. Departure Departure Impression: Primary Impression: Fatigue Additional Impression: GERD (gastroesophageal reflux disease) Referrals: NO PCP (PCP) Patient Instructions: Fatigue, Gastroesophageal Reflux Disease, Adult Problem Qualifiers MARCELLE PRUITT DO Oct 24, 2021 07:53
[2021-10-24] MEDS ORDERED: LIDO:MAALOX 1:1 20 ML SINGLE DOSE. SWSW ONE (08:00)
== END 2021-10-24 08:00 | disposition home or self-care (01) ==
LOC: ER 07:42
DX: K21.9 Gastro-esophageal reflux disease without esophagitis (principal); R53.83 Other fatigue; I10 Essential (primary) hypertension; F20.9 Schizophrenia, unspecified; F17.200 Nicotine dependence, unspecified, uncomplicated
CPT/HCPCS: 99283

== ENCOUNTER 2021-10-30 02:19 | Emergency (ER) | payer MEDICAID ==
[~2021-10-30] VITALS: Ht 172.7 cm; Wt 90.9 kg
[2021-10-30 02:54] VITALS: BP 145/77
--- NOTE | 2021-10-30 03:12 | PHYS DOC ---
Past Medical History Past Medical History: Asthma, GERD, Hypertension, Schizophrenia Additional Past Medical Histor: SUBSTANCE ABUSE Past Surgical History: Other Additional Past Surgical Histo: UNKNOWN Smoking Status: Current Every Day Smoker Alcohol Use: None Drug Use: Marijuana, Other Adult General Chief Complaint Chief Complaint: HOMELESS HPI HPI The patient is a 41-year-old male who is homeless and well-known to this facility for very frequent presentations for nonemergent complaints. He presents for evaluation of mild chronic upper abdominal pain which he states is usually treated with a GI cocktail. He has no other complaints today. Vital signs are appropriate. Review of Systems Review of Systems A 12 point review of systems was completed and was negative except where noted in HPI above. Current Medications Current Medications Current Medications Medications (Trade) Dose Ordered Sig/Hayde Start Time Stop Time Status Last Admin Dose Admin Multi-Ingredient Mouthwash/Gargle (Gi Cocktail) 20 ml 1X ONCE 10/30/21 03:30 10/30/21 03:31 Allergies Allergies Allergies Coded Allergies Type Severity Reaction Last Updated Verified No Known Drug Allergies 09/10/21 No Physical Exam Physical Exam 41-year-old male appearing nontoxic and in no acute distress. Head is normocephalic and atraumatic. Neck is supple and nontender. Oropharynx is moist. Lungs are clear to auscultation at all stations. There is a normal S1 and S2 without rubs or gallops and capillary refill is appropriate, less than 2 seconds globally. Abdomen is soft, nontender and nondistended. Skin is warm and dry without cyanosis, clubbing or edema. Psychiatrically, the patient demonstrates appropriate mood and affect and is alert. Current Patient Data Vital Signs Vital Signs Date Time Temp Pulse Resp B/P (MAP) Pulse Ox O2 Delivery O2 Flow Rate FiO2 10/30/21 02:54 97.2 106 16 145/77 (99) 100 Room Air 97.2 EKG EKG [] Radiology/Procedures Radiology/Procedures [] Course & Med Decision Making Course & Med Decision Making GI cocktail administered. No evidence of emergency condition is identified. Will discharge patient. Dragon Disclaimer Dragon Disclaimer This electronic medical record was generated, in whole or in part, using a voice recognition dictation system. Departure Departure Impression: Primary Impression: Encounter for medical screening examination Disposition: HOME / SELF CARE / HOMELESS Condition: GOOD Referrals: NO PCP (PCP) Patient Instructions: Medical Screening Exam LAZARUS MONTOYA MD Oct 30, 2021 03:12
[2021-10-30] MEDS ORDERED: LIDO:MAALOX 1:1 20 ML SINGLE DOSE. SWSW ONE (03:30)
== END 2021-10-30 03:18 | disposition home or self-care (01) ==
LOC: ER 02:19
DX: R10.10 Upper abdominal pain, unspecified (principal); Z59.00 Homelessness unspecified; J45.909 Unspecified asthma, uncomplicated; K21.9 Gastro-esophageal reflux disease without esophagitis; I10 Essential (primary) hypertension; F20.9 Schizophrenia, unspecified; F17.200 Nicotine dependence, unspecified, uncomplicated
CPT/HCPCS: 99283

== ENCOUNTER 2021-11-19 23:59 | Emergency (ER) | payer MEDICAID ==
[~2021-11-19] VITALS: Ht 165.1 cm; Wt 106.8 kg
[2021-11-20 01:25] VITALS: BP 115/71
--- NOTE | 2021-11-20 01:36 | PHYS DOC ---
Past Medical History Past Medical History: Asthma, GERD, Hypertension, Schizophrenia Additional Past Medical Histor: SUBSTANCE ABUSE Past Surgical History: Other Additional Past Surgical Histo: UNKNOWN Smoking Status: Current Every Day Smoker Alcohol Use: None Drug Use: Marijuana, Other General Adult EDM: Chief Complaint: HEADACHE HPI: HPI: Patient is a 41 year old [f__sex] who presents with [] Review of Systems: Review of Systems: Constitutional: Denies fever or chills. [] Eyes: Denies change in visual acuity. [] HENT: Denies nasal congestion or sore throat. [] Respiratory: Denies cough or shortness of breath. [] Cardiovascular: Denies chest pain or edema. [] GI: Denies abdominal pain, nausea, vomiting, bloody stools or diarrhea. [] : Denies dysuria. [] Musculoskeletal: Denies back pain or joint pain. [] Integument: Denies rash. [] Neurologic: Denies headache, focal weakness or sensory changes. [] Endocrine: Denies polyuria or polydipsia. [] Lymphatic: Denies swollen glands. [] Psychiatric: Denies depression or anxiety. [] Heart Score: Risk Factors: Risk Factors: DM, Current or recent (<one month) smoker, HTN, HLP, family history of CAD, obesity. Risk Scores: Score 0 - 3: 2.5% MACE over next 6 weeks - Discharge Home Score 4 - 6: 20.3% MACE over next 6 weeks - Admit for Clinical Observation Score 7 - 10: 72.7% MACE over next 6 weeks - Early Invasive Strategies Allergies: Allergies: Allergies Coded Allergies Type Severity Reaction Last Updated Verified No Known Drug Allergies 09/10/21 No Physical Exam: PE: Constitutional: Well developed, well nourished, no acute distress, non-toxic appearance. [] HENT: Normocephalic, atraumatic, bilateral external ears normal, oropharynx moist, no oral exudates, nose normal. [] Eyes: PERRLA, EOMI, conjunctiva normal, no discharge. [] Neck: Normal range of motion, no tenderness, supple, no stridor. [] Cardiovascular:Heart rate regular rhythm, no murmur [] Lungs & Thorax: Bilateral breath sounds clear to auscultation [] Abdomen: Bowel sounds normal, soft, no tenderness, no masses, no pulsatile masses. [] Skin: Warm, dry, no erythema, no rash. [] Back: No tenderness, no CVA tenderness. [] Extremities: No tenderness, no cyanosis, no clubbing, ROM intact, no edema. [] Neurologic: Alert and oriented X 3, normal motor function, normal sensory function, no focal deficits noted. [] Psychologic: Affect normal, judgement normal, mood normal. [] EKG: EKG: [] Radiology/Procedures: Radiology/Procedures: [] Course & Med Decision Making: Course & Med Decision Making Pertinent Labs and Imaging studies reviewed. (See chart for details) [] Dragon Disclaimer: Dragon Disclaimer: This electronic medical record was generated, in whole or in part, using a voice recognition dictation system. Departure Departure Impression: Primary Impression: Headache Qualified Codes: R51.9 - Headache, unspecified Disposition: 01 HOME / SELF CARE / HOMELESS Condition: STABLE Referrals: NO PCP (PCP) Patient Instructions: Headache, FAQs Additional Instructions: Take [id number] ibuprofen and or Tylenol for pain or discomfort. EVA MONSIVAIS DO Nov 20, 2021 01:36
[2021-11-20] MEDS ORDERED: ACETAMINOPHEN 500 MG TABLET PO ONE (01:45)
== END 2021-11-20 01:55 | disposition home or self-care (01) ==
LOC: ER 23:59
DX: R51.9 Headache, unspecified (principal); K21.9 Gastro-esophageal reflux disease without esophagitis; I10 Essential (primary) hypertension; J45.909 Unspecified asthma, uncomplicated; F20.9 Schizophrenia, unspecified; F17.200 Nicotine dependence, unspecified, uncomplicated
CPT/HCPCS: 99283

== ENCOUNTER 2021-11-26 23:38 | Emergency (ER) | payer MEDICAID ==
[~2021-11-26] VITALS: Ht 172.7 cm; Wt 106.0 kg
[2021-11-27 03:13] VITALS: BP 134/65
--- NOTE | 2021-11-27 03:27 | PHYS DOC ---
Past Medical History Past Medical History: Asthma, GERD, Hypertension, Schizophrenia Additional Past Medical Histor: SUBSTANCE ABUSE Past Surgical History: Other Additional Past Surgical Histo: UNKNOWN Smoking Status: Current Every Day Smoker Alcohol Use: Occasionally Drug Use: Marijuana, Other General Adult EDM: Chief Complaint: FOOT INJURY PAIN HPI: HPI: Patient is a 41 year old male who arrives via EMS with reported foot pain. He reports that he can't walk, though he is ambulatory on arrival. He denies any injury or trauma. He reported that he feels like his shoes are too small. No reported open wounds, no redness, no swelling, no numbness or tingling. He denies chest pain or dyspnea. He denies abdominal pain or nausea or vomiting. He is resting very comfortably, sleeping on the ED gurney in his room. Review of Systems: Review of Systems: Constitutional: Denies fever or chills. [] HENT: Denies nasal congestion or sore throat. [] Respiratory: Denies cough or shortness of breath. [] Cardiovascular: Denies chest pain GI: Denies abdominal pain, nausea, vomiting Musculoskeletal: Reports bilateral foot pain Integument: Denies rash or open wounds Neurologic: Denies headache, focal weakness or sensory changes. [] Psychiatric: Chronic and unchanged mood disturbance Heart Score: C/O Chest Pain: No Risk Factors: Risk Factors: DM, Current or recent (<one month) smoker, HTN, HLP, family history of CAD, obesity. Risk Scores: Score 0 - 3: 2.5% MACE over next 6 weeks - Discharge Home Score 4 - 6: 20.3% MACE over next 6 weeks - Admit for Clinical Observation Score 7 - 10: 72.7% MACE over next 6 weeks - Early Invasive Strategies Allergies: Allergies: Allergies Coded Allergies Type Severity Reaction Last Updated Verified No Known Drug Allergies 09/10/21 No Physical Exam: PE: Constitutional: Well developed, well nourished, no acute distress, non-toxic appearance. [] HENT: Normocephalic, atraumatic Eyes: Conjunctiva normal, no discharge. [] Neck: Trachea is midline. No tenderness, neck is supple Cardiovascular:Heart rate regular rhythm, +2 radial and +2 dorsalis pedis pulses bilaterally, warm and well perfused, no cyanosis Lungs & Thorax: Bilateral breath sounds clear to auscultation [] Abdomen: Abdomen is soft, obese, nondistended, nontender to palp Skin: Warm, dry, no erythema, no rash. No open wounds, no laceration Back: No tenderness, no CVA tenderness. [] Extremities: No tenderness, no cyanosis, no clubbing, ROM intact, no edema. No evidence of the bilateral feet, no palpable deformity or tenderness of either lower extremity, no tenderness or deformity of bilateral feet. Full painless active and passive range of motion of the bilateral ankles and feet and digits Neurologic: Alert and oriented X 3, normal motor function, normal sensory function, no focal deficits noted. [] Psychologic: Affect is flat and bizarre. He is cooperative. [] Current Patient Data: Vital Signs: Vital Signs Date Time Temp Pulse Resp B/P (MAP) Pulse Ox O2 Delivery O2 Flow Rate FiO2 11/27/21 03:13 73 18 134/65 (88) 98 Room Air EKG: EKG: [] Radiology/Procedures: Radiology/Procedures: [] Course & Med Decision Making: Course & Med Decision Making The patient is sleeping, he manifest no evidence of distress. There is no evidence of trauma or tenderness on his feet. His exam is otherwise unremarkable. Vital signs are stable. No current indication for emergent imaging or further invasive exams. Return precautions are given. Sharmin Disclaimer: Sharmin Disclaimer: This electronic medical record was generated, in whole or in part, using a voice recognition dictation system. Departure Departure Impression: Primary Impression: Bilateral foot pain Disposition: HOME / SELF CARE / HOMELESS Condition: STABLE Referrals: NO PCP (PCP) Patient Instructions: Medical Screening Exam Additional Instructions: Return for acute injury or trauma, if you develop any open wounds, bleeding, fever of 100.4 or higher, weakness, vomiting, shortness of breath, chest pain or other concerns. You may take [id number] Tylenol or ibuprofen if you have any pain or discomfort. Please contact your primary care doctor for follow-up. OLE CAMACHO DO Nov 27, 2021 03:26
== END 2021-11-27 05:45 | disposition home or self-care (01) ==
LOC: ER 23:38
DX: M79.672 Pain in left foot (principal); M79.671 Pain in right foot; J45.909 Unspecified asthma, uncomplicated; K21.9 Gastro-esophageal reflux disease without esophagitis; I10 Essential (primary) hypertension; F20.9 Schizophrenia, unspecified; F17.200 Nicotine dependence, unspecified, uncomplicated
CPT/HCPCS: 99283

== ENCOUNTER 2021-12-28 19:40 | Emergency (ER) | payer MEDICAID ==
[~2021-12-28] VITALS: Ht 170.2 cm; Wt 102.6 kg
[2021-12-28 19:46] VITALS: BP 166/78
[2021-12-28] MEDS ORDERED: ONDA4TAB12 PO (19:52)
--- NOTE | 2021-12-28 19:53 | PHYS DOC ---
Past Medical History Past Medical History: Asthma, GERD, Hypertension, Schizophrenia Additional Past Medical Histor: SUBSTANCE ABUSE Past Surgical History: Other Additional Past Surgical Histo: UNKNOWN Smoking Status: Current Every Day Smoker Alcohol Use: Occasionally Drug Use: Marijuana, Other General Adult EDM: Chief Complaint: HEADACHE HPI: HPI: Patient is a 41 year old male with history of hypertension, asthma, schizophrenia, well-known to this ED presenting today complaining of a headache and nausea that began while he was walking to the bus stop. Patient denies any abdominal pain, chest pain, shortness of breath. He is requesting medicine for his headache, nausea and a GI cocktail. Review of Systems: Review of Systems: Constitutional: Denies fever or chills. [] Eyes: Denies change in visual acuity. [] HENT: Denies nasal congestion or sore throat. [] Respiratory: Denies cough or shortness of breath. [] Cardiovascular: Denies chest pain or edema. [] GI: Reports nausea. Denies abdominal pain, vomiting, bloody stools or diarrhea. [] : Denies dysuria. [] Musculoskeletal: Denies back pain or joint pain. [] Integument: Denies rash. [] Neurologic: Reports headache, denies focal weakness or sensory changes. [] Psychiatric: Denies depression or anxiety. [] Heart Score: C/O Chest Pain: N/A Risk Factors: Risk Factors: DM, Current or recent (<one month) smoker, HTN, HLP, family history of CAD, obesity. Risk Scores: Score 0 - 3: 2.5% MACE over next 6 weeks - Discharge Home Score 4 - 6: 20.3% MACE over next 6 weeks - Admit for Clinical Observation Score 7 - 10: 72.7% MACE over next 6 weeks - Early Invasive Strategies Allergies: Allergies: Allergies Coded Allergies Type Severity Reaction Last Updated Verified No Known Drug Allergies 12/28/21 No Physical Exam: PE: Constitutional: Well developed, well nourished, no acute distress, non-toxic appearance. [] HENT: Normocephalic, atraumatic, bilateral external ears normal, oropharynx moist, no oral exudates, nose normal. [] Eyes: PERRLA, EOMI, conjunctiva normal, no discharge. [] Neck: Normal range of motion, no tenderness, supple, no stridor. [] Cardiovascular:Heart rate regular rhythm, no murmur [] Lungs & Thorax: Bilateral breath sounds clear to auscultation [] Abdomen: Bowel sounds normal, soft, no tenderness, no masses, no pulsatile masses. [] Skin: Warm, dry, no erythema, no rash. [] Back: No tenderness, no CVA tenderness. [] Extremities: No tenderness, no cyanosis, no clubbing, ROM intact, no edema. [] Neurologic: Alert and oriented X 3, normal motor function, normal sensory function, no focal deficits noted. Cranial nerves II through XII intact Psychologic: Affect normal, judgement normal, mood normal. [] EKG: EKG: [] Radiology/Procedures: Radiology/Procedures: [] Course & Med Decision Making: Course & Med Decision Making Pertinent Labs and Imaging studies reviewed. (See chart for details) This a 41-year-old male patient well-known to this ED presenting today complaining of a headache, nausea, symptoms began today while walking to the bus stop. He is asking for his typical medicine GI cocktail. Also wants something for his nausea and headache. He was given Tylenol and Zofran GI cocktail and discharged Dragon Disclaimer: Sharmin Disclaimer: This electronic medical record was generated, in whole or in part, using a voice recognition dictation system. Departure Departure Impression: Primary Impression: Headache Qualified Codes: R51.9 - Headache, unspecified Additional Impression: Nausea & vomiting Qualified Codes: R11.2 - Nausea with vomiting, unspecified Disposition: 01 HOME / SELF CARE / HOMELESS Condition: STABLE Referrals: NO PCP (PCP) follow up with your doctor next week Patient Instructions: Headache, FAQs Scripts Ondansetron (ONDANSETRON ODT) 4 Mg Tab.rapdis 1 TAB PO PRN Q6-8HRS, #16 TAB Prov: YOGESH DIAZ APRN 12/28/21 YOGESH DIAZ PASTRY COOK APPRENTICE Dec 28, 2021 19:53
[2021-12-28] MEDS ORDERED: ACETAMINOPHEN 500 MG TABLET PO ONE (20:00)
[2021-12-28] MEDS ORDERED: ONDANSETRON ODT 4 MG TAB.RAPDIS. PO ONE (20:00)
[2021-12-28] MEDS ORDERED: LIDO:MAALOX 1:1 20 ML SINGLE DOSE. SWSW ONE (20:00)
== END 2021-12-28 19:59 | disposition home or self-care (01) ==
LOC: ER 19:40
DX: R51.9 Headache, unspecified (principal); R11.2 Nausea with vomiting, unspecified; J45.909 Unspecified asthma, uncomplicated; K21.9 Gastro-esophageal reflux disease without esophagitis; I10 Essential (primary) hypertension; F20.9 Schizophrenia, unspecified; F17.200 Nicotine dependence, unspecified, uncomplicated
CPT/HCPCS: 99284

== ENCOUNTER 2022-03-23 03:08 | Emergency (ER) | payer MEDICAID ==
[~2022-03-23] VITALS: Ht 175.3 cm; Wt 96.4 kg
[2022-03-23 03:10] VITALS: BP 153/99
[2022-03-23] MEDS ORDERED: CEPHALEXIN 250 MG CAPSULE. PO STA (03:22)
[2022-03-23] MEDS ORDERED: CEPH500C PO (03:28)
--- NOTE | 2022-03-23 03:29 | PHYS DOC ---
Past Medical History Past Medical History: Asthma, GERD, Hypertension, Schizophrenia Additional Past Medical Histor: SUBSTANCE ABUSE Past Surgical History: No Surgical History Additional Past Surgical Histo: UNKNOWN Smoking Status: Current Every Day Smoker Alcohol Use: Occasionally Drug Use: Marijuana, Other General Adult EDM: Chief Complaint: LOWER EXTREMITY SWELLING HPI: HPI: Patient is a 41 year old M who presents with pain and swelling to his right foot which he believes is happening secondary to wearing a pair of ill fitting boots for the last few days. Patient's pain is mild to moderate, worse with walking or palpation. Patient denies any open sores or wounds to his foot. Patient denies any pain or swelling to his calf or thigh, chest pain, shortness of breath. Review of Systems: Review of Systems: Constitutional: Denies fever or chills. [] Eyes: Denies change in visual acuity. [] HENT: Denies nasal congestion or sore throat. [] Respiratory: Denies cough or shortness of breath. [] Cardiovascular: Denies chest pain or edema. [] GI: Denies abdominal pain, nausea, vomiting, bloody stools or diarrhea. [] : Denies dysuria. [] Musculoskeletal: Pain in foot, Denies back pain. [] Integument: Denies rash. [] Neurologic: Denies headache, focal weakness or sensory changes. [] Endocrine: Denies polyuria or polydipsia. [] Lymphatic: Denies swollen glands. [] Psychiatric: Denies depression or anxiety. [] Heart Score: C/O Chest Pain: No Risk Factors: Risk Factors: DM, Current or recent (<one month) smoker, HTN, HLP, family history of CAD, obesity. Risk Scores: Score 0 - 3: 2.5% MACE over next 6 weeks - Discharge Home Score 4 - 6: 20.3% MACE over next 6 weeks - Admit for Clinical Observation Score 7 - 10: 72.7% MACE over next 6 weeks - Early Invasive Strategies Allergies: Allergies: Allergies Coded Allergies Type Severity Reaction Last Updated Verified No Known Drug Allergies 12/28/21 No Physical Exam: PE: Constitutional: Well developed, well nourished, no acute distress, non-toxic appearance. [] HENT: Normocephalic, atraumatic, bilateral external ears normal, oropharynx moist, no oral exudates, nose normal. [] Eyes: PERRLA, EOMI, conjunctiva normal, no discharge. [] Neck: Normal range of motion, no tenderness, supple, no stridor. [] Cardiovascular:Heart rate regular rhythm, no murmur [] Lungs & Thorax: Bilateral breath sounds clear to auscultation [] Abdomen: Bowel sounds normal, soft, no tenderness, no masses, no pulsatile masses. [] Skin: Warm, dry, no erythema, no rash. [] Back: No tenderness, no CVA tenderness. [] Extremities: Mild swelling and tenderness to palpation of patients R foot, mildly warm to touch, no sores or ulcers, DP palpated in bilateral feet. L foot normal. Neurologic: Alert and oriented X 3, normal motor function, normal sensory function, no focal deficits noted. [] Psychologic: Affect normal, judgement normal, mood normal. [] EKG: EKG: [] Radiology/Procedures: Radiology/Procedures: [] Course & Med Decision Making: Course & Med Decision Making Patient denies any history of an injury to the foot. No bruising or trauma visible on inspection. Since there is no history of an injury we will not obtain an x-ray at this time. Also no visible swelling in the calf or thigh or reason suspect DVT at this time. Clinically suspect the patient has cellulitis of the right foot we will start him on antibiotics with recommendation that he returns to the hospital in 24 to 48 hours if symptoms or not begin to improve. Giving the patient ibuprofen p.o. in the emergency department her pain tonight and recommend he buy something [id number] for pain as needed over the next several days. Sharmin Disclaimer: Sharmin Disclaimer: This electronic medical record was generated, in whole or in part, using a voice recognition dictation system. Departure Departure Impression: Primary Impression: Cellulitis of right foot Disposition: HOME / SELF CARE / HOMELESS Condition: STABLE Referrals: NO PCP (PCP) Patient Instructions: Cellulitis, [id number] Scripts Cephalexin (KEFLEX) 500 Mg Capsule 1 CAP PO QID for 7 Days, #28 CAP Prov: RADHA RANGEL MD 03/23/22 RADHA RANGEL MD March 23, 2022 03:29
[2022-03-23] MEDS ORDERED: IBUPROFEN 200 MG TABLET. PO ONE (03:30)
== END 2022-03-23 03:38 | disposition home or self-care (01) ==
LOC: ER 03:08
DX: L03.115 Cellulitis of right lower limb (principal); K21.9 Gastro-esophageal reflux disease without esophagitis; I10 Essential (primary) hypertension; J45.909 Unspecified asthma, uncomplicated; F20.9 Schizophrenia, unspecified; F17.200 Nicotine dependence, unspecified, uncomplicated
CPT/HCPCS: 99283

== ENCOUNTER 2022-03-26 08:00 | Emergency (ER) | payer MEDICAID ==
[~2022-03-26] VITALS: Ht 172.7 cm; Wt 93.2 kg
[~2022-03-26 08:00] MED LIST changes: +CEPH500C PO
[2022-03-26 08:06] VITALS: BP 143/73
[2022-03-26] MEDS ORDERED: LIDO:MAALOX 1:1 20 ML SINGLE DOSE. SWSW ONE (08:30)
[2022-03-26] MEDS ORDERED: ACETAMINOPHEN 500 MG TABLET PO ONE (08:30)
--- NOTE | 2022-03-26 08:42 | RAD ---
Exam: XR FOOT_RIGHT 3 VIEWS History: Right foot pain Comparison: None. Findings: Osseous mineralization is normal. No acute fracture or dislocation. Normal alignment on nonweightbear ing images. Trace first MTP degenerative change. Question dorsal midfoot soft tissue swelling. Impression: 1. No acute osseous abnormality in the right foot. Question dorsal midfoot soft tissue swelling. Electronically signed by: Vlad Cerda MD (03/26/2022 8:40 AM) [id number]
--- NOTE | 2022-03-26 15:58 | PHYS DOC ---
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 Patient is homeless, he states that he has been unable to walk for the last week. Patient states that he would like a GI cocktail because he has gotten before and it has helped with his epigastric pain. Otherwise he feels well. He asks for a sandwich. Review of Systems: Review of Systems: Constitutional: Denies fever or chills. [] Eyes: Denies change in visual acuity. [] HENT: Denies nasal congestion or sore throat. [] Respiratory: Denies cough or shortness of breath. [] Cardiovascular: Denies chest pain or edema. [] GI: Denies abdominal pain, nausea, vomiting, bloody stools or diarrhea. [] : Denies dysuria. [] Musculoskeletal: Denies back pain or joint pain. [] Integument: Denies rash. [] Neurologic: Denies headache, focal weakness or sensory changes. [] Endocrine: Denies polyuria or polydipsia. [] Lymphatic: Denies swollen glands. [] Psychiatric: Denies depression or anxiety. [] Heart Score: C/O Chest Pain: No Risk Factors: Risk Factors: DM, Current or recent (<one month) smoker, HTN, HLP, family history of CAD, obesity. Risk Scores: Score 0 - 3: 2.5% MACE over next 6 weeks - Discharge Home Score 4 - 6: 20.3% MACE over next 6 weeks - Admit for Clinical Observation Score 7 - 10: 72.7% MACE over next 6 weeks - Early Invasive Strategies Current Medications: Current Medications Medications (Trade) Dose Ordered Sig/Hayde Start Time Stop Time Status Last Admin Dose Admin Acetaminophen (Tylenol) 1,000 mg 1X ONCE 03/26/22 08:30 03/26/22 08:31 DC 03/26/22 08:28 1,000 MG Multi-Ingredient Mouthwash/Gargle (Gi Cocktail) 20 ml 1X ONCE 03/26/22 08:30 03/26/22 08:31 DC 03/26/22 08:29 20 ML Allergies: Allergies: Allergies Coded Allergies Type Severity Reaction Last Updated Verified No Known Drug Allergies 12/28/21 No Physical Exam: PE: Constitutional: Well developed, well nourished, no acute distress, non-toxic appearance. [] HENT: Normocephalic, atraumatic, bilateral external ears normal, oropharynx moist, no oral exudates, nose normal. [] Eyes: PERRLA, EOMI, conjunctiva normal, no discharge. [] Neck: Normal range of motion, no tenderness, supple, no stridor. [] Cardiovascular:Heart rate regular rhythm, no murmur [] Lungs & Thorax: Bilateral breath sounds clear to auscultation [] Abdomen: Bowel sounds normal, soft, no tenderness, no masses, no pulsatile masses. [] Skin: Warm, dry, no erythema, no rash. [] Back: No tenderness, no CVA tenderness. [] Extremities: No tenderness, no cyanosis, no clubbing, ROM intact, no edema. No tenderness to palpation of right foot [] Neurologic: Alert and oriented X 3, normal motor function, normal sensory function, no focal deficits noted. [] Psychologic: Flat affect Current Patient Data: Vital Signs: Vital Signs Date Time Temp Pulse Resp B/P (MAP) Pulse Ox O2 Delivery O2 Flow Rate FiO2 03/26/22 08:06 98.6 97 16 143/73 (96) 96 Room Air 98.6 EKG: EKG: [] Radiology/Procedures: Radiology/Procedures: X-ray without bony fracture Course & Med Decision Making: Course & Med Decision Making Pertinent Labs and Imaging studies reviewed. (See chart for details) After x-ray was performed on foot, patient eloped. Patient did not wait to discuss findings. Unfortunately this will be AGAINST MEDICAL ADVICE. Unable to discuss with patient. Unsure why patient left without saying anything to the nurses. Reportedly, patient was last seen on the other side of the parking lot of our hospital running away from the hospital. Dragon Disclaimer: Dragon Disclaimer: This electronic medical record was generated, in whole or in part, using a voice recognition dictation system. Departure Departure Impression: Primary Impression: Left against medical advice Disposition: LEFT AGAINST MEDICAL ADVICE Condition: STABLE LARISA BRANDON MD March 26, 2022 15:58
== END 2022-03-26 08:50 | disposition left against medical advice (07) ==
LOC: ER 08:00
DX: M79.671 Pain in right foot (principal); R10.13 Epigastric pain; J45.909 Unspecified asthma, uncomplicated; K21.9 Gastro-esophageal reflux disease without esophagitis; I10 Essential (primary) hypertension; F20.9 Schizophrenia, unspecified; F17.200 Nicotine dependence, unspecified, uncomplicated
CPT/HCPCS: 73630; 99283